=== PATIENT | female | born 1980 | race Caucasian/White ===

== ENCOUNTER 2016-12-16 10:58 | Emergency (ER) | payer MEDICAID ==
[2016-12-16] MEDS ORDERED: HYDROmorphone 1 MG/ML Syringe IM ONE (11:21)
--- NOTE | 2016-12-16 12:32 | EDM.PDOC ---
ED HPI GENERAL MEDICAL PROBLEM - General Chief Complaint: General Stated Complaint: ALL OVER BODY PAIN DUE TO FALL Time Seen by Provider: 12/16/16 11:13 Source of Information: Reports: Patient History Limitations: Reports: No limitations - History of Present Illness INITIAL COMMENTS - FREE TEXT/NARRATIVE: The patient presents with low back pain, coccyx, right shoulder and left sided chest pain. She fell down the steps 6 days ago. She was going into her basement and tripped and fell down 20 steps. She had no LOC. She has no numbness or weakness. She has a mild headache. 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: oxycodone Back Pain Score (Numeric/FACES): 9 - Related Data Allergies Allergy/AdvReac Type Severity Reaction Status Date / Time morphine AdvReac Mild Nausea and Verified 12/16/16 11:04 Vomiting latex Allergy Intermediate Blisters Uncoded 12/16/16 11:04 Home Meds: Home Meds Levothyroxine 50 mcg PO DAILY 12/24/13 [History] Verapamil HCl [Verapamil ER] 240 mg PO BEDTIME 12/24/13 [History] Pramipexole Di-HCl [Mirapex] 1 mg PO DAILY 06/25/14 [History] LORazepam 2 mg PO TID 12/02/14 [History] Insulin Detemir [Levemir] 12 unit SUBCUT 06/13/16 [History] Ziprasidone HCl [Geodon] 20 mg PO BID 06/13/16 [History] hydrOXYzine Pamoate [Vistaril] 25 mg PO BEDTIME PRN 06/13/16 [History] Cyclobenzaprine [Flexeril] 10 mg PO TID PRN #20 tablet 12/16/16 [Rx] oxyCODONE HCl/Acetaminophen [Percocet 5-325 mg Tablet] 1 - 2 each PO Q6HR PRN # 20 tablet 12/16/16 [Rx] Past Medical History HEENT History: Reports: Impaired vision Other HEENT History: wears eyeglasses Cardiovascular History: Reports: Hypertension Respiratory History: Reports: Bronchitis, recurrent, Pneumonia, recurrent Gastrointestinal History: Reports: Cirrhosis, Hepatitis 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 OB/BYN 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 Musculoskeletal History: Reports: Other (see below) Other Musculoskeletal History: Scoliosis Neurological History: Reports: Migraines Psychiatric History: Reports: Anxiety, Depression Endocrine/Metabolic History: Reports: Diabetes, type II, Hypothyroidism Hematologic History: Reports: Anemia Oncologic (Cancer) History: Reports: Cervix, Thyroid - Infectious Disease History Infectious Disease History: Reports: Chicken pox, Hepatitis C, Influenza, Shingles - Past Surgical History HEENT Surgical History: Reports: Adenoidectomy, Tonsillectomy Cardiovascular Surgical History: Reports: None Respiratory Surgical History: Reports: None GI Surgical History: Reports: Appendectomy Female Surgical History: Reports: Hysterectomy, Tubal ligation Endocrine Surgical History: Reports: Thyroidectomy Neurological Surgical History: Reports: None Social & Family History - Family History Family Medical History: Noncontributory - Tobacco Use Smoking Status *Q: Current Every Day Smoker Years of Tobacco use: 20 Packs/Tins Daily: 0.5 Used Tobacco, but Quit: No Second Hand Smoke Exposure: No - Caffeine Use Caffeine Use: Reports: Soda - Alcohol Use Days Per Week of Alcohol Use: 0 - Recreational Drug Use Recreational Drug Use: Yes Drug Use in Last 12 Months: Yes Recreational Drug Type: Reports: Marijuana/Hashish Other Recreational Drug Type: marijuana one week ago Recreational Drug Use Frequency: Socially Recreational Drug Last Use: 30 days - Living Situation & Occupation Living situation: Reports: , with family Occupation: disabled (Cirrhosis & depression) ED ROS GENERAL - Review of Systems Review Of Systems: See Below Constitutional: Reports: no symptoms HEENT: Reports: No symptoms Respiratory: Reports: No Symptoms Cardiovascular: Reports: Chest pain (Left side) Endocrine: Reports: no symptoms GI/Abdominal: Reports: No symptoms : Reports: no symptoms Musculoskeletal: Reports: back pain (Lower) ED EXAM, GENERAL - Physical Exam Exam: See Below Exam Limited By: No limitations General Appearance: alert, no apparent distress Ears: normal external exam Nose: normal inspection Head: atraumatic, normocephalic Neck: normal inspection Respiratory/Chest: no respiratory distress, lungs clear, normal breath sounds Cardiovascular: regular rate, rhythm, no edema, no murmur GI/Abdominal: soft, non tender, no organomegaly, no mass Back Exam: other (Pain upon palpation to the lower back) Extremities: normal inspection Neurological: alert, oriented, no motor/sensory deficits Course - Vital Signs Last Recorded V/S: Last Vital Signs Temp 97.4 F 12/16/16 11:05 Pulse 108 H 12/16/16 11:05 Resp 16 12/16/16 11:05 BP 143/101 H 12/16/16 11:05 Pulse Ox 98 12/16/16 11:05 - Orders/Labs/Meds Orders: Active Orders 24 hr Category Date Time Status CXR [Chest 2V] [CR] Stat Exams 12/16/16 11:22 Taken Lumbar Spine 2 or 3V [CR] Stat Exams 12/16/16 11:21 Taken Sacrum Coccyx Min 2V [CR] Stat Exams 12/16/16 11:21 Taken Shoulder Comp Rt [CR] Stat Exams 12/16/16 11:22 Taken Meds: Medications Discontinued Medications Generic Name Dose Route Start Last Admin Trade Name Freq PRN Reason Stop Dose Admin Hydromorphone HCl 1 mg 12/16/16 11:21 12/16/16 11:49 Dilaudid IM 12/16/16 11:22 1 mg ONETIME ONE Administration - Re-Assessments/Exams Free Text/Narrative Re-Assessment/Exam: 12/16/16 12:31 I ordered dilaudid 1mg IM. The x-ray of her lumbar spine, coccyx, shoulder and chest are all negative for fracture or acute injury. Departure - Departure Time of Disposition: 12:35 Disposition: Home, Self-Care 01 Condition: good Clinical Impression: Chest wall pain Fall Qualifiers: Encounter type: initial encounter Qualified Code(s): W19.XXXA - Unspecified fall, initial encounter Low back pain Qualifiers: Chronicity: acute Back pain laterality: bilateral Sciatica presence: without sciatica Qualified Code(s): M54.5 - Low back pain Right shoulder pain Qualifiers: Chronicity: acute Qualified Code(s): M25.511 - Pain in right shoulder Prescriptions: oxyCODONE HCl/Acetaminophen [Percocet 5-325 mg Tablet] 1 - 2 each PO Q6HR PRN # 20 tablet PRN Reason: Pain Cyclobenzaprine [Flexeril] 10 mg PO TID PRN #20 tablet PRN Reason: Pain Referrals: Jane Alex NP [Primary Care Provider] - 1 Week Forms: ED Department Discharge Additional Instructions: Take the flexeril and percocet as needed for pain. Use ice or heat, which ever one feels better. Please return if you are worse. - My Orders Last 24 Hours: My Active Orders 12/16/16 11:21 Lumbar Spine 2 or 3V [CR] Stat Sacrum Coccyx Min 2V [CR] Stat 12/16/16 11:22 CXR [Chest 2V] [CR] Stat Shoulder Comp Rt [CR] Stat - Assessment/Plan Last 24 Hours: My Active Orders 12/16/16 11:21 Lumbar Spine 2 or 3V [CR] Stat Sacrum Coccyx Min 2V [CR] Stat 12/16/16 11:22 CXR [Chest 2V] [CR] Stat Shoulder Comp Rt [CR] Stat
[2016-12-16 12:55] VITALS: BP 112/79
--- NOTE | 2016-12-16 15:08 | CR ---
Chest: Two views of the chest was obtained. Comparison: Previous chest x-ray of 01/24/15. Heart size and mediastinum are normal. Lungs are clear. Minimal scoliosis is noted. Bony structures are otherwise unremarkable for the patient's age. Impression: 1. Nothing acute is identified on two-view chest x-ray. Diagnostic code #2
--- NOTE | 2016-12-16 15:08 | CR ---
Right shoulder: Three views of the right shoulder were obtained. Comparison: No previous shoulder study. Glenohumeral joint and acromioclavicular joint are unremarkable. No fracture, dislocation or other bony abnormality is identified. Impression: 1. No abnormality is identified on three-view right shoulder study. Diagnostic code #1
--- NOTE | 2016-12-16 15:08 | CR ---
Sacrum and coccyx: Three views of the sacrum and coccyx were obtained. No discrete fracture or other bony abnormality is seen. Sacroiliac joints are within normal limits. Impression: 1. No discrete abnormality is appreciated on three-view sacrum and coccyx study. Diagnostic code #1
--- NOTE | 2016-12-16 15:08 | CR ---
Lumbar spine: AP, lateral and coned-down lateral views centered to the lumbosacral junction were obtained. Comparison: Previous lumbar spine study of 01/24/15. Mild scoliosis noted. Vertebral body heights and disc spaces are preserved. Minimal scattered endplate osteophytes are seen. Pedicles as well as transverse and spinous processes are intact. Mild increased stool noted within the colon. No subluxation or fracture is seen. Impression: 1. Mild scoliosis. Minimal scattered endplate osteophytes. 2. Mild increased stool within the colon. Diagnostic code #2
== END 2016-12-16 12:53 | disposition home or self-care (01) ==
LOC: JD.ED 10:58
DX: R07.89 Other chest pain (principal); M54.5 Low back pain; M25.511 Pain in right shoulder; I10 Essential (primary) hypertension; F41.8 Other specified anxiety disorders; E11.9 Type 2 diabetes mellitus without complications; D64.9 Anemia, unspecified; F17.210 Nicotine dependence, cigarettes, uncomplicated; Z98.890 Other specified postprocedural states; Z90.710 Acquired absence of both cervix and uterus; E89.0 Postprocedural hypothyroidism; E03.9 Hypothyroidism, unspecified; Z85.41 Personal history of malignant neoplasm of cervix uteri; Z85.850 Personal history of malignant neoplasm of thyroid; Z79.4 Long term (current) use of insulin; Z79.899 Other long term (current) drug therapy
CPT/HCPCS: 71020; 72100; 72220; 73030; 96372; 99285; J1170; 99284

== ENCOUNTER 2017-08-08 13:24 | Emergency (ER) | payer MEDICAID ==
[2017-08-08 13:37] VITALS: BP 151/104
[2017-08-08] MEDS ORDERED: Ondansetron 4 MG/2 ML SDV IVPUSH ONE (13:37)
[2017-08-08] MEDS ORDERED: Sodium Chloride 0.9% 10 ML Syringe FLUSH PRN (13:37)
[2017-08-08] MEDS ORDERED: Sodium Chloride 0.9% 1,000 ML IV SCH (13:45)
--- NOTE | 2017-08-08 14:17 | EDM.PDOC ---
ED HPI GENERAL MEDICAL PROBLEM - General Chief Complaint: Abdominal Pain Stated Complaint: ABNORMAL EKG-SENT FROM [place] Time Seen by Provider: 08/08/17 13:30 Source of Information: Reports: Patient, Provider History Limitations: Reports: No Limitations - History of Present Illness INITIAL COMMENTS - FREE TEXT/NARRATIVE: The patient presents with lower abdominal pain and chest pain. She has a history of low abdominal pain and it has gotten a little worse. She also has some nausea and vomiting. She also has some chest pain with some shortness of breath. She has no fever or chills. The pain is worse with movement. She has no cough, congestion or runny nose. She says the pain is pressure like. She has no history of heart problems. Her dad did have an OK. She does smoke. Onset: Gradual Duration: Day(s): Location: Reports: Chest, Abdomen Quality: Reports: Pressure Severity: Moderate Improves with: Reports: None Worsens with: Reports: Movement Associated Symptoms: Reports: Chest Pain, Nausea/Vomiting. Denies: Fever/Chills , Shortness of Breath lower abdomen Pain Score (Numeric/FACES): 6 - Related Data Allergies Allergy/AdvReac Type Severity Reaction Status Date / Time morphine AdvReac Mild Nausea and Verified 08/08/17 13:37 Vomiting latex Allergy Intermediate Blisters Uncoded 08/08/17 13:37 Home Meds: Home Meds Levothyroxine 50 mcg PO DAILY 12/24/13 [History] Pramipexole Di-HCl [Mirapex] 1 mg PO DAILY 06/25/14 [History] Insulin Detemir [Levemir] 50 unit SUBCUT DAILY 06/13/16 [History] Cyclobenzaprine [Flexeril] 10 mg PO TID PRN #20 tablet 12/16/16 [Rx] Buprenorphine HCl/Naloxone HCl [Buprenorphin-Naloxon 8-2 mg Sl] 1 each SL TID [History] Past Medical History HEENT History: Reports: Impaired Vision Other HEENT History: wears eyeglasses Cardiovascular History: Reports: Hypertension Respiratory History: Reports: Bronchitis, Recurrent, Pneumonia, Recurrent Gastrointestinal History: Reports: Cirrhosis, 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 Musculoskeletal History: Reports: Other (See Below) Other Musculoskeletal History: Scoliosis Neurological History: Reports: Migraines Psychiatric History: Reports: Addiction, Anxiety, Depression Endocrine/Metabolic History: Reports: Diabetes, Type I, Hypothyroidism Hematologic History: Reports: Anemia Oncologic (Cancer) History: Reports: Cervix, Thyroid - Infectious Disease History Infectious Disease History: Reports: Chicken Pox, Hepatitis C, Influenza, Shingles - Past Surgical History Cardiovascular Surgical History: Reports: None GI Surgical History: Reports: Appendectomy Female Surgical History: Reports: Hysterectomy, Tubal Ligation Neurological Surgical History: Reports: None Social & Family History - Family History Family Medical History: Noncontributory - Tobacco Use Smoking Status *Q: Current Every Day Smoker Years of Tobacco use: 20 Packs/Tins Daily: 0.5 Used Tobacco, but Quit: No Second Hand Smoke Exposure: No - Caffeine Use Caffeine Use: Reports: Soda - Alcohol Use Days Per Week of Alcohol Use: 0 - Recreational Drug Use Recreational Drug Use: No Drug Use in Last 12 Months: Yes Recreational Drug Type: Reports: Marijuana/Hashish Other Recreational Drug Type: marijuana one week ago Recreational Drug Use Frequency: Socially Recreational Drug Last Use: 30 days - Living Situation & Occupation Living situation: Reports: , with Family Occupation: Disabled ED ROS GENERAL - Review of Systems Review Of Systems: See Below Constitutional: Reports: No Symptoms HEENT: Reports: No Symptoms Respiratory: Reports: Shortness of Breath Cardiovascular: Reports: Chest Pain Endocrine: Reports: No Symptoms GI/Abdominal: Reports: Abdominal Pain, Nausea, Vomiting. Denies: Diarrhea : Reports: No Symptoms Musculoskeletal: Reports: No Symptoms ED EXAM, GI/ABD - Physical Exam Exam: See Below Exam Limited By: No Limitations General Appearance: Alert, No Apparent Distress Ears: Normal External Exam Nose: Normal Inspection Head: Atraumatic, Normocephalic Neck: Normal Inspection Respiratory/Chest: No Respiratory Distress, Lungs Clear, Normal Breath Sounds Cardiovascular: Regular Rate, Rhythm, No Edema, No Murmur GI/Abdominal Exam: Soft, No Organomegaly, No Mass, Tender (Moderate to the lower abdomen) Back Exam: Normal Inspection Extremities: Normal Inspection EKG INTERPRETATION EKG Date: 08/08/17 Time: 14:33 Rhythm: NSR Rate (Beats/Min): 87 [place]: LAD-Left [place] Deviation P-Wave: Present QRS: Normal ST-T: Normal QT: Normal Course - Vital Signs Last Recorded V/S: Last Vital Signs Temp 96.5 F 08/08/17 13:30 Pulse 91 08/08/17 13:30 Resp 18 08/08/17 13:30 BP 151/104 H 08/08/17 13:30 Pulse Ox 98 08/08/17 13:30 - Orders/Labs/Meds Orders: Active Orders 24 hr Category Date Time Status Cardiac Monitoring [RC] . DIRECTED Care 08/08/17 13:37 Active EKG Documentation Completion [RC] ASDIRECTED Care 08/08/17 13:39 Active Oxygen Therapy [RC] PRN Care 08/08/17 13:37 Active Peripheral IV Care [RC] . DIRECTED Care 08/08/17 13:38 Active Chest 1V Frontal [CR] Stat Exams 08/08/17 13:38 Taken Sodium Chloride 0.9% [Normal Saline] 1,000 ml Med 08/08/17 13:45 Active IV .BOLUS Sodium Chloride 0.9% [Saline Flush] Med 08/08/17 13:37 Active 10 ml FLUSH ASDIRECTED PRN ED Antiemetic Medication Reflex [OM.PC] Stat Oth 08/08/17 13:38 Ordered Peripheral IV Insertion Adult [OM.PC] Stat Oth 08/08/17 13:37 Ordered EKG 12 Lead [EK] Stat Ther 08/08/17 13:39 Ordered Medication Orders Sodium Chloride (Normal Saline) 1,000 mls @ 1,000 mls/hr IV .BOLUS OSCAR Last Admin: 08/08/17 13:50 Dose: 1,000 mls/hr Sodium Chloride (Saline Flush) 10 ml FLUSH ASDIRECTED PRN PRN Reason: Keep Vein Open Last Admin: 08/08/17 13:52 Dose: 10 ml Labs: Laboratory Tests 08/08/17 08/08/17 08/08/17 Range/Units 13:40 13:40 13:40 WBC 6.18 (3.98-10.04) K/mm3 RBC 4.82 (3.98-5.22) M/mm3 Hgb 15.1 (11.2-15.7) gm/L Hct 44.1 (34.1-44.9) % MCV 91.5 (79.4-94.8) fl MCH 31.3 (25.6-32.2) pg MCHC 34.2 (32.2-35.5) g/dl RDW Std Deviation 44.0 (36.4-46.3) fL Plt Count 71 L (182-369) K/mm3 MPV 10.0 (9.4-12.3) fl Neut % (Auto) 59.2 (34.0-71.1) % Lymph % (Auto) 29.0 (19.3-51.7) % [place] % (Auto) 9.2 (4.7-12.5) % Eos % (Auto) 2.1 (0.7-5.8) Baso % (Auto) 0.3 (0.1-1.2) % Neut # (Auto) 3.66 (1.56-6.13) K/mm3 Lymph # (Auto) 1.79 (1.18-3.74) K/mm3 [place] # (Auto) 0.57 H (0.24-0.36) K/mm3 Eos # (Auto) 0.13 (0.04-0.36) K/mm3 Baso # (Auto) 0.02 (0.01-0.08) K/mm3 Manual Slide Review Normal smear Sodium 140 (136-145) mEq/L Potassium 4.1 (3.5-5.1) mEq/L Chloride 103 (98-107) mEq/L Carbon Dioxide 30 (21-32) mEq/L Anion Gap 11.1 (5-15) BUN 11 (7-18) mg/dL Creatinine 0.8 (0.55-1.02) mg/dL Est Cr Clr Drug Dosing 96.36 mL/min Estimated GFR (MDRD) > 60 (>60) mL/min BUN/Creatinine Ratio 13.8 L (14-18) Glucose 160 H (74-106) mg/dL Calcium 9.0 (8.5-10.1) mg/dL Total Bilirubin 0.5 (0.2-1.0) mg/dL AST 109 H (15-37) U/L ALT 182 H (14-59) U/L Alkaline Phosphatase 94 (46-116) U/L Troponin I < 0.017 (0.00-0.056) ng/mL Total Protein 8.5 H (6.4-8.2) g/dl Albumin 3.6 (3.4-5.0) g/dl Globulin 4.9 gm/dL Albumin/Globulin Ratio 0.7 L (1-2) Lipase 137 (73-393) U/L Urine Color (Yellow) Urine Appearance (Clear) Urine pH (5.0-8.0) Ur Specific [place] (1.005-1.030) Urine Protein (Negative) Urine Glucose (UA) (Negative) Urine Ketones (Negative) Urine Occult Blood (Negative) Urine Nitrite (Negative) Urine Bilirubin (Negative) Urine Urobilinogen (0.2-1.0) Ur Leukocyte Esterase (Negative) Urine RBC (0-5) /hpf Urine WBC (0-5) /hpf Ur Epithelial Cells (0-5) /hpf Urine Bacteria (FEW) /hpf Urine Mucus (FEW) /hpf H. pylori IgG Antibody Negative (NEGATIVE) 08/08/17 Range/Units 13:50 WBC (3.98-10.04) K/mm3 RBC (3.98-5.22) M/mm3 Hgb (11.2-15.7) gm/L Hct (34.1-44.9) % MCV (79.4-94.8) fl MCH (25.6-32.2) pg MCHC (32.2-35.5) g/dl RDW Std Deviation (36.4-46.3) fL Plt Count (182-369) K/mm3 MPV (9.4-12.3) fl Neut % (Auto) (34.0-71.1) % Lymph % (Auto) (19.3-51.7) % [place] % (Auto) (4.7-12.5) % Eos % (Auto) (0.7-5.8) Baso % (Auto) (0.1-1.2) % Neut # (Auto) (1.56-6.13) K/mm3 Lymph # (Auto) (1.18-3.74) K/mm3 [place] # (Auto) (0.24-0.36) K/mm3 Eos # (Auto) (0.04-0.36) K/mm3 Baso # (Auto) (0.01-0.08) K/mm3 Manual Slide Review Sodium (136-145) mEq/L Potassium (3.5-5.1) mEq/L Chloride (98-107) mEq/L Carbon Dioxide (21-32) mEq/L Anion Gap (5-15) BUN (7-18) mg/dL Creatinine (0.55-1.02) mg/dL Est Cr Clr Drug Dosing mL/min Estimated GFR (MDRD) (>60) mL/min BUN/Creatinine Ratio (14-18) Glucose (74-106) mg/dL Calcium (8.5-10.1) mg/dL Total Bilirubin (0.2-1.0) mg/dL AST (15-37) U/L ALT (14-59) U/L Alkaline Phosphatase (46-116) U/L Troponin I (0.00-0.056) ng/mL Total Protein (6.4-8.2) g/dl Albumin (3.4-5.0) g/dl Globulin gm/dL Albumin/Globulin Ratio (1-2) Lipase (73-393) U/L Urine Color Yellow (Yellow) Urine Appearance Clear (Clear) Urine pH 6.0 (5.0-8.0) Ur Specific [place] 1.015 (1.005-1.030) Urine Protein Negative (Negative) Urine Glucose (UA) Negative (Negative) Urine Ketones Negative (Negative) Urine Occult Blood Negative (Negative) Urine Nitrite Negative (Negative) Urine Bilirubin Negative (Negative) Urine Urobilinogen 0.2 (0.2-1.0) Ur Leukocyte Esterase Negative (Negative) Urine RBC 0-5 (0-5) /hpf Urine WBC 0-5 (0-5) /hpf Ur Epithelial Cells 0-5 (0-5) /hpf Urine Bacteria Occasional (FEW) /hpf Urine Mucus Not seen (FEW) /hpf H. pylori IgG Antibody (NEGATIVE) Meds: Medications Generic Name Dose Route Start Last Admin Trade Name Freq PRN Reason Stop Dose Admin Sodium Chloride 1,000 mls @ 1,000 mls/hr 08/08/17 13:45 08/08/17 13:50 Normal Saline IV 1,000 mls/hr .BOLUS OSCAR Administration Sodium Chloride 10 ml 08/08/17 13:37 08/08/17 13:52 Saline Flush FLUSH 10 ml ASDIRECTED PRN Administration Keep Vein Open Discontinued Medications Generic Name Dose Route Start Last Admin Trade Name Freq PRN Reason Stop Dose Admin Ondansetron HCl 4 mg 08/08/17 13:37 08/08/17 13:52 Zofran IVPUSH 08/08/17 13:38 4 mg ONETIME ONE Administration - Re-Assessments/Exams Free Text/Narrative Re-Assessment/Exam: 08/08/17 14:17 I ordered an IV NS 1L bolus, zofran, labs, EKG and CXR. 08/08/17 15:02 Her EKG shows a NSR with no acute changes. Her CXR looks good. Her CBC looks good. Her glucose was 160. Her AST was elevated at 109. Her ALT was elevated at 182. Her troponin was negative. Her lipase was negative. Her UA shows no UTI. Her H-pylori was negative. She feels better and she would like to go. Departure - Departure Time of Disposition: 15:05 Disposition: Home, Self-Care 01 Condition: Good Clinical Impression: Abdominal pain, Atypical chest pain - Discharge Information Referrals: PCP,Not In Area [Primary Care Provider] - Forms: ED Department Discharge Additional Instructions: Take your medication as prescribed. Follow up with your doctor next week. Please return if you are worse. - My Orders Last 24 Hours: My Active Orders 08/08/17 13:37 Cardiac Monitoring [RC] . DIRECTED Oxygen Therapy [RC] PRN Sodium Chloride 0.9% [Saline Flush] 10 ml FLUSH ASDIRECTED PRN Peripheral IV Insertion Adult [OM.PC] Stat 08/08/17 13:38 Peripheral IV Care [RC] . DIRECTED Chest 1V Frontal [CR] Stat ED Antiemetic Medication Reflex [OM.PC] Stat 08/08/17 13:39 EKG Documentation Completion [RC] ASDIRECTED EKG 12 Lead [EK] Stat 08/08/17 13:45 Sodium Chloride 0.9% [Normal Saline] 1,000 ml IV .BOLUS - Assessment/Plan Last 24 Hours: My Active Orders 08/08/17 13:37 Cardiac Monitoring [RC] . DIRECTED Oxygen Therapy [RC] PRN Sodium Chloride 0.9% [Saline Flush] 10 ml FLUSH ASDIRECTED PRN Peripheral IV Insertion Adult [OM.PC] Stat 08/08/17 13:38 Peripheral IV Care [RC] . DIRECTED Chest 1V Frontal [CR] Stat ED Antiemetic Medication Reflex [OM.PC] Stat 08/08/17 13:39 EKG Documentation Completion [RC] ASDIRECTED EKG 12 Lead [EK] Stat 08/08/17 13:45 Sodium Chloride 0.9% [Normal Saline] 1,000 ml IV .BOLUS
--- NOTE | 2017-08-11 07:59 | CR ---
Chest: Portable view of the chest was obtained. Comparison: Prior chest x-ray of 12/16/16. Heart size and mediastinum are normal. Lungs are clear. Density is identified within the right lower chest most likely artifact. Bony structures are otherwise unremarkable. Impression: 1. Linear density within the right lung base most likely artifact. 2. Nothing acute is identified on portable chest x-ray. Diagnostic code #2
== END 2017-08-08 15:21 | disposition home or self-care (01) ==
LOC: JD.ED 13:24
DX: R07.89 Other chest pain (principal); R10.30 Lower abdominal pain, unspecified; I10 Essential (primary) hypertension; E03.9 Hypothyroidism, unspecified; E10.9 Type 1 diabetes mellitus without complications; Z79.4 Long term (current) use of insulin; F17.210 Nicotine dependence, cigarettes, uncomplicated; Z88.5 Allergy status to narcotic agent; Z91.040 Latex allergy status
CPT/HCPCS: 36415; 71010; 80053; 81001; 83690; 84484; 85025; 86677; 93005; 96361; 96374; 99285; J2405; J7040; J7050; 93010; 99284

== ENCOUNTER 2017-09-15 18:22 | Emergency (ER) | payer MEDICAID ==
[2017-09-15 18:38] VITALS: BP 165/114
[2017-09-15] MEDS ORDERED: Cephalexin 500 MG Cap PO ONE (20:08)
--- NOTE | 2017-09-15 20:14 | EDM.PDOC ---
ED HPI GENERAL MEDICAL PROBLEM - General Chief Complaint: Skin Complaint Stated Complaint: INFECTION ON ARM Time Seen by Provider: 09/15/17 19:54 Source of Information: Reports: Patient History Limitations: Reports: No Limitations - History of Present Illness INITIAL COMMENTS - FREE TEXT/NARRATIVE: The patient states that she received a tattoo to the volar aspect of her right forearm on 08/30 or 08/31/2017. This was done by a non-professional who owned a tattoo gun. She states that she has been washing the tattoo with Dial antibacterial soap, and applying Neosporin. She states that about 1-2 days later , she developed redness, itchiness, and burning around the tattoo. She has not had a fever or chills. No nausea or vomiting. The patient states that she has 38 other tattoos, and has never had an adverse reaction previously. No medical evaluation for this complaint, prior to tonight. The patient's PCP is Dr. Ninfa Avelar, at [facility] in [place]. Right Lower Arm Pain Score (Numeric/FACES): 3 - Related Data Allergies Allergy/AdvReac Type Severity Reaction Status Date / Time morphine AdvReac Mild Nausea and Verified 09/15/17 18:38 Vomiting latex Allergy Intermediate Blisters Uncoded 09/15/17 18:38 Home Meds: Home Meds Levothyroxine 50 mcg PO DAILY 12/24/13 [History] Pramipexole Di-HCl [Mirapex] 1 mg PO DAILY 06/25/14 [History] Insulin Detemir [Levemir] 20 unit SUBCUT QAM 06/13/16 [History] Buprenorphine HCl/Naloxone HCl [Buprenorphin-Naloxon 8-2 mg Sl] 1 each SL BID [History] Cephalexin [Keflex] 1 tab PO Q6HR #20 cap 09/15/17 [Rx] Cyclobenzaprine [Flexeril] 10 mg PO BID PRN 09/15/17 [History] Insulin Aspart [Novolog Flexpen] 1 dose SQ ASDIRECTED 09/15/17 [History] Insulin Detemir [Levemir] 18 units SQ QPM 09/15/17 [History] Past Medical History HEENT History: Reports: Impaired Vision Other HEENT History: wears eyeglasses Cardiovascular History: Reports: Hypertension Respiratory History: Reports: Bronchitis, Recurrent, Pneumonia, Recurrent Gastrointestinal History: Reports: Cirrhosis, Hepatitis 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 OB/BYN 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 Musculoskeletal History: Reports: Other (See Below) Other Musculoskeletal History: Scoliosis Neurological History: Reports: Migraines Psychiatric History: Reports: Addiction, Anxiety, Depression Endocrine/Metabolic History: Reports: Diabetes, Type I, Hypothyroidism Hematologic History: Reports: Anemia Oncologic (Cancer) History: Reports: Cervix, Thyroid - Infectious Disease History Infectious Disease History: Reports: Chicken Pox, Hepatitis C, Influenza, Shingles - Past Surgical History Cardiovascular Surgical History: Reports: None GI Surgical History: Reports: Appendectomy Female Surgical History: Reports: Hysterectomy, Tubal Ligation Neurological Surgical History: Reports: None Social & Family History - Family History Family Medical History: Noncontributory - Tobacco Use Smoking Status *Q: Current Every Day Smoker Years of Tobacco use: 20 Packs/Tins Daily: 0.5 Used Tobacco, but Quit: No Second Hand Smoke Exposure: No - Caffeine Use Caffeine Use: Reports: Soda - Alcohol Use Days Per Week of Alcohol Use: 0 - Recreational Drug Use Recreational Drug Use: No Drug Use in Last 12 Months: Yes Recreational Drug Type: Reports: Marijuana/Hashish Other Recreational Drug Type: marijuana one week ago Recreational Drug Use Frequency: Socially Recreational Drug Last Use: 30 days - Living Situation & Occupation Living situation: Reports: , with Family Occupation: Disabled ED ROS GENERAL - Review of Systems Review Of Systems: ROS reveals no pertinent complaints other than HPI. ED EXAM, SKIN/RASH Exam: See Below Exam Limited By: No Limitations General Appearance: Alert, WD/WN, No Apparent Distress Extremities: Normal Range of Motion, Normal Capillary Refill Skin: Warm, Dry, Intact, Normal Color, Rash (There is a large tattoo to the volar aspect of the patient's right forearm. A scab covers the entire tattoo. Surrounding the entire tattoo is a red petechial rash, with minimal associated erythema or swelling. No weeping.), Tattoo(s) (Numerous) Course - Vital Signs Last Recorded V/S: Last Vital Signs Temp 36.7 C 09/15/17 18:32 Pulse 110 H 09/15/17 18:32 Resp 16 09/15/17 18:32 BP 165/114 H 09/15/17 18:32 Pulse Ox 96 09/15/17 18:32 - Orders/Labs/Meds Meds: Medications Discontinued Medications Generic Name Dose Route Start Last Admin Trade Name Quinn PRN Reason Stop Dose Admin Cephalexin 500 mg 09/15/17 20:08 09/15/17 20:15 Keflex PO 09/15/17 20:09 500 mg ONETIME ONE Administration - Re-Assessments/Exams Free Text/Narrative Re-Assessment/Exam: 09/15/17 20:09 The patient has a large tattoo on the ventral aspect of her right forearm, that is scabbed over, and surrounded by mild erythema and numerous punctate erythematous lesions. I do not strongly suspect that the patient has cellulitis , rather, I believe the punctate lesions are a reaction to the Neosporin that she has been applying to the wound. Nevertheless, I believe it would be prudent to prescribe the patient a five-day course of Keflex and then have her follow- up with her PCP in [place]. We will give the patient her first dose of Keflex here. Unfortunately, the patient states that she does not have a credit card or debit card, therefore she cannot fill a prescription for Keflex from the [facility] machine - I will e -prescribe for Keflex to [facility] in [place] that the patient can pickle maker in the morning. Departure - Departure Time of Disposition: 20:12 Disposition: Home, Self-Care 01 Condition: Good Clinical Impression: Adverse reaction to drug that acts primarily on skin - Discharge Information Prescriptions: Cephalexin [Keflex] 1 tab PO Q6HR #20 cap Instructions: Contact Dermatitis, [id number] Referrals: Ninfa Avelar MD [Consulting Physician] - Forms: ED Department Discharge Additional Instructions: You were seen in the emergency room for a skin reaction on your right forearm, following a tattoo being placed. The reaction you are having is MOST LIKELY an adverse reaction to Neosporin. We recommend that you discard all antibacterial soaps and the Neosporin. Keep the wound clean by washing it with ordinary soap and water. Do not apply any topical antibiotic ointments. You probably do not have cellulitis (infection of the skin), however, to be safe , you have been started on the antibiotic Keflex. Take one tablet every 6 hours , as prescribed. Finish the entire prescription unless told otherwise by your doctor. We recommend that you follow-up with your PCP, Dr. Ninfa Avelar, this week. If any other problems, please do not hesitate to return to the ER.
== END 2017-09-15 20:26 | disposition home or self-care (01) ==
LOC: JD.ED 18:22
DX: L53.9 Erythematous condition, unspecified (principal); L29.9 Pruritus, unspecified; T49.0X5A Adverse effect of local antifungal, anti-infective and anti-inflammatory drugs, initial encounter; E10.9 Type 1 diabetes mellitus without complications; E03.9 Hypothyroidism, unspecified; I10 Essential (primary) hypertension; F17.210 Nicotine dependence, cigarettes, uncomplicated; Z79.4 Long term (current) use of insulin; Z79.899 Other long term (current) drug therapy; Z88.5 Allergy status to narcotic agent; Z91.040 Latex allergy status
CPT/HCPCS: 99283; A9270

== ENCOUNTER 2017-12-21 13:21 | Emergency (ER) | payer MEDICAID ==
[2017-12-21 13:32] VITALS: BP 157/103
--- NOTE | 2017-12-21 15:24 | EDM.PDOC ---
ED HPI GENERAL MEDICAL PROBLEM - General Chief Complaint: Respiratory Problem Stated Complaint: COUGHING UP BLOOD Time Seen by Provider: 12/21/17 13:54 Source of Information: Reports: Patient History Limitations: Reports: No Limitations - History of Present Illness INITIAL COMMENTS - FREE TEXT/NARRATIVE: 37-year-old female presents for evaluation and treatment of hemoptysis. Patient reports that she coughed up blood 3 separate times today. Most recently was prior to arrival in the ER. She has a picture of it on the phone and coughed up approximately pea-sized amount of blood. She reports associated symptoms of fatigue, chills, lightheadedness and abdominal pain. Reports she's been having trouble with constipation states she's not had a bowel movement in the last 2 and half weeks. Denies any fevers, nausea, vomiting, syncope, chest pain or any shortness of breath. Patient is a type I diabetic. She reports her sugars have been higher than normal in the 600s. Sugars are normally in the 300s. Last checked around 10 AM sugar was 300s. Patient has a history of hepatitis C and cirrhosis. Primary care provide in Dr. Jung Rasmussen. Abdomen Pain Score (Numeric/FACES): 6 - Related Data Allergies Allergy/AdvReac Type Severity Reaction Status Date / Time morphine AdvReac Mild Nausea and Verified 09/15/17 18:38 Vomiting latex Allergy Intermediate Blisters Uncoded 09/15/17 18:38 Home Meds: Home Meds Levothyroxine 50 mcg PO DAILY 12/24/13 [History] Pramipexole Di-HCl [Mirapex] 1 mg PO DAILY 06/25/14 [History] Insulin Detemir [Levemir] 20 unit SUBCUT QAM 06/13/16 [History] Buprenorphine HCl/Naloxone HCl [Buprenorphin-Naloxon 8-2 mg Sl] 1 each SL BID [History] Cyclobenzaprine [Flexeril] 10 mg PO BID PRN 09/15/17 [History] Insulin Aspart [Novolog Flexpen] 1 dose SQ ASDIRECTED 09/15/17 [History] Insulin Detemir [Levemir] 18 units SQ QPM 09/15/17 [History] Azithromycin [IJP: Azithromycin] 250 mg PO DAILY #6 tab 12/21/17 [Rx] Past Medical History HEENT History: Reports: Impaired Vision Other HEENT History: wears eyeglasses Cardiovascular History: Reports: Hypertension Respiratory History: Reports: Bronchitis, Recurrent, Pneumonia, Recurrent Gastrointestinal History: Reports: Cirrhosis, 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 OB/BYN 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 Musculoskeletal History: Reports: Other (See Below) Other Musculoskeletal History: Scoliosis Neurological History: Reports: Migraines Psychiatric History: Reports: Addiction, Anxiety, Depression Endocrine/Metabolic History: Reports: Diabetes, Type I, Hypothyroidism Hematologic History: Reports: Anemia Oncologic (Cancer) History: Reports: Cervix, Thyroid - Infectious Disease History Infectious Disease History: Reports: Chicken Pox, Hepatitis C, Influenza, Shingles - Past Surgical History Cardiovascular Surgical History: Reports: None GI Surgical History: Reports: Appendectomy Female Surgical History: Reports: Hysterectomy, Tubal Ligation Neurological Surgical History: Reports: None Social & Family History - Family History Family Medical History: Noncontributory - Tobacco Use Smoking Status *Q: Current Every Day Smoker Years of Tobacco use: 20 Packs/Tins Daily: 0.5 Used Tobacco, but Quit: No Second Hand Smoke Exposure: No - Caffeine Use Caffeine Use: Reports: Soda, Tea - Alcohol Use Days Per Week of Alcohol Use: 0 - Recreational Drug Use Recreational Drug Use: No Drug Use in Last 12 Months: Yes Recreational Drug Type: Reports: Marijuana/Hashish Other Recreational Drug Type: marijuana one week ago Recreational Drug Use Frequency: Socially Recreational Drug Last Use: 30 days - Living Situation & Occupation Living situation: Reports: , with Family Occupation: Disabled ED ROS GENERAL - Review of Systems Review Of Systems: See Below Constitutional: Reports: Chills. Denies: Fever, Malaise Respiratory: Reports: Cough, Hemoptysis. Denies: Shortness of Breath Cardiovascular: Denies: Chest Pain GI/Abdominal: Reports: Abdominal Pain. Denies: Hematemesis, Nausea, Vomiting ED EXAM, GENERAL - Physical Exam Exam: See Below Exam Limited By: No Limitations General Appearance: Alert, WD/WN, No Apparent Distress Ears: Normal External Exam Nose: Normal Inspection Throat/Mouth: Normal Inspection, Normal Lips, Normal Voice, No Airway Compromise Respiratory/Chest: No Respiratory Distress, Lungs Clear, Normal Breath Sounds Cardiovascular: Normal Peripheral Pulses, Regular Rate, Rhythm, No Murmur GI/Abdominal: Normal Bowel Sounds, Soft, Tender (mild generalized) Neurological: Alert, Oriented, Normal Cognition Psychiatric: Normal Affect, Normal Mood Skin Exam: Warm, Dry, Normal Color Course - Vital Signs Last Recorded V/S: Last Vital Signs Temp 37.2 C 12/21/17 13:31 Pulse 122 H 12/21/17 13:31 Resp 20 12/21/17 13:31 BP 157/103 H 12/21/17 13:31 Pulse Ox 96 12/21/17 13:31 - Orders/Labs/Meds Orders: Active Orders 24 hr Category Date Time Status Abdomen 1V Flat [CR] Stat Exams 12/21/17 14:02 Taken Chest 2V [CR] Stat Exams 12/21/17 14:02 Taken Labs: Laboratory Tests 12/21/17 12/21/17 12/21/17 Range/Units 14:17 14:17 14:17 WBC 6.53 (3.98-10.04) K/mm3 RBC 4.60 (3.98-5.22) M/mm3 Hgb 14.2 (11.2-15.7) gm/L Hct 41.5 (34.1-44.9) % MCV 90.2 (79.4-94.8) fl MCH 30.9 (25.6-32.2) pg MCHC 34.2 (32.2-35.5) g/dl RDW Std Deviation 42.1 (36.4-46.3) fL Plt Count 73 L (182-369) K/mm3 MPV 10.4 (9.4-12.3) fl Neutrophils % (Manual) 82 H (40-60) % Band Neutrophils % 0 (0-10) % Lymphocytes % (Manual) 13 L (20-40) % Atypical Lymphs % 0 % Monocytes % (Manual) 5 (2-10) % Eosinophils % (Manual) 0 L (0.7-5.8) % Basophils % (Manual) 0 L (0.1-1.2) Platelet Estimate Decreased Plt Morphology Comment See note RBC Morph Comment Normal PT 13.8 H (8.0-13.0) SECONDS INR 1.29 APTT 29 (22-36) SECONDS D-Dimer, Quantitative (0.19-0.59) mg/L Sodium 137 (136-145) mEq/L Potassium 4.2 (3.5-5.1) mEq/L Chloride 101 (98-107) mEq/L Carbon Dioxide 28 (21-32) mEq/L Anion Gap 12.2 (5-15) BUN 13 (7-18) mg/dL Creatinine 0.9 (0.55-1.02) mg/dL Est Cr Clr Drug Dosing 84.84 mL/min Estimated GFR (MDRD) > 60 (>60) mL/min BUN/Creatinine Ratio 14.4 (14-18) Glucose 335 H (74-106) mg/dL Calcium 8.7 (8.5-10.1) mg/dL Total Bilirubin 0.7 (0.2-1.0) mg/dL AST 88 H (15-37) U/L ALT 161 H (14-59) U/L Alkaline Phosphatase 101 (46-116) U/L Total Protein 8.1 (6.4-8.2) g/dl Albumin 3.6 (3.4-5.0) g/dl Globulin 4.5 gm/dL Albumin/Globulin Ratio 0.8 L (1-2) 12/21/17 Range/Units 14:17 WBC (3.98-10.04) K/mm3 RBC (3.98-5.22) M/mm3 Hgb (11.2-15.7) gm/L Hct (34.1-44.9) % MCV (79.4-94.8) fl MCH (25.6-32.2) pg MCHC (32.2-35.5) g/dl RDW Std Deviation (36.4-46.3) fL Plt Count (182-369) K/mm3 MPV (9.4-12.3) fl Neutrophils % (Manual) (40-60) % Band Neutrophils % (0-10) % Lymphocytes % (Manual) (20-40) % Atypical Lymphs % % Monocytes % (Manual) (2-10) % Eosinophils % (Manual) (0.7-5.8) % Basophils % (Manual) (0.1-1.2) Platelet Estimate Plt Morphology Comment RBC Morph Comment PT (8.0-13.0) SECONDS INR APTT (22-36) SECONDS D-Dimer, Quantitative 0.31 (0.19-0.59) mg/L Sodium (136-145) mEq/L Potassium (3.5-5.1) mEq/L Chloride (98-107) mEq/L Carbon Dioxide (21-32) mEq/L Anion Gap (5-15) BUN (7-18) mg/dL Creatinine (0.55-1.02) mg/dL Est Cr Clr Drug Dosing mL/min Estimated GFR (MDRD) (>60) mL/min BUN/Creatinine Ratio (14-18) Glucose (74-106) mg/dL Calcium (8.5-10.1) mg/dL Total Bilirubin (0.2-1.0) mg/dL AST (15-37) U/L ALT (14-59) U/L Alkaline Phosphatase (46-116) U/L Total Protein (6.4-8.2) g/dl Albumin (3.4-5.0) g/dl Globulin gm/dL Albumin/Globulin Ratio (1-2) - Radiology Interpretation Free Text/Narrative:: chest x shows no acute intrathoracic process. KUB shows increased stool in the colon - Re-Assessments/Exams Free Text/Narrative Re-Assessment/Exam: 12/21/17 15:47 I reviewed the chest x-ray and labs with the patient. Will treat for bronchitis. Follow-up with family medicine. Discharge instructions as documented. Departure - Departure Time of Disposition: 15:56 Disposition: Home, Self-Care 01 Condition: Fair Clinical Impression: Bronchitis - Discharge Information Prescriptions: Azithromycin [IJP: Azithromycin] 250 mg PO DAILY #6 tab Instructions: Acute Bronchitis, Adult, [id number] Referrals: Ninfa Avelar MD [Primary Care Provider] - Forms: ED Department Discharge Additional Instructions: Azithromycin as prescribed. 2 tabs on day 1 followed by 1 tablet on day 2 through 5 for 5 days of antibiotic total. Follow-up with your primary care provider in 1-2 weeks for recheck of your symptoms. Rest. Make sure you are drinking plenty of fluids. Please return to the ER if your symptoms change or worsen. - My Orders Last 24 Hours: My Active Orders 12/21/17 14:02 Abdomen 1V Flat [CR] Stat Chest 2V [CR] Stat - Assessment/Plan Last 24 Hours: My Active Orders 12/21/17 14:02 Abdomen 1V Flat [CR] Stat Chest 2V [CR] Stat
--- NOTE | 2017-12-22 07:23 | CR ---
Chest: Two views of the chest were obtained. Comparison: Prior chest x-ray of 08/08/17. Heart size and mediastinum are normal. Lungs are clear. Bony structures are unremarkable. Impression: 1. Nothing acute is appreciated on two-view chest x-ray. Diagnostic code #1
--- NOTE | 2017-12-22 07:23 | CR ---
Abdomen: Supine view of the abdomen was obtained. Comparison: Prior abdominal x-ray of 11/09/15. Slight increased stool throughout the colon is seen. Bowel gas pattern is otherwise unremarkable. Calcification is seen within the right side of the pelvis most likely representing phlebolith. No soft tissue abnormality is seen. Bony structures are unremarkable for the patient's age. Impression: 1. Slight increased stool within the colon. Nothing acute is appreciated. Diagnostic code #2
== END 2017-12-21 16:05 | disposition home or self-care (01) ==
LOC: JD.ED 13:21
DX: J40 Bronchitis, not specified as acute or chronic (principal); I10 Essential (primary) hypertension; E10.9 Type 1 diabetes mellitus without complications; E03.9 Hypothyroidism, unspecified; Z88.5 Allergy status to narcotic agent; Z91.040 Latex allergy status; Z79.899 Other long term (current) drug therapy
CPT/HCPCS: 36415; 71046; 71046-26; 74018; 74018-26; 80053; 85025; 85379; 85610; 85730; 99283; 99284

== ENCOUNTER 2018-03-21 12:25 | Emergency (ER) | payer MEDICAID ==
[2018-03-21 12:39] VITALS: BP 159/115
--- NOTE | 2018-03-21 13:33 | EDM.PDOC ---
ED HPI GENERAL MEDICAL PROBLEM - General Chief Complaint: Genitourinary Problem Stated Complaint: POSS. UTI Time Seen by Provider: 03/21/18 13:02 Source of Information: Reports: Patient History Limitations: Reports: No Limitations - History of Present Illness INITIAL COMMENTS - FREE TEXT/NARRATIVE: 37-year-old female presents for evaluation and treatment of vaginal pain, swelling, erythema and itchiness. She reports the symptoms have been going on for about 2 months. She reports dysuria, occasional hematuria and pain in her lower back. She denies any fevers, chills, nausea or vomiting. She denies any vaginal discharge. She reports her clothing touching her vaginal area seems to greatly exacerbate the pain. She was seen in the clinic on January 17, 2018. She was started on Diflucan for presumed yeast infection. She took this to completion. She had a wet prep done at that time which showed moderate clue cells. She was then put on a 5 day course of vaginal Flagyl. GC/ chlyamdia testing done which was negative. She reports that she has tried multiple [id number] creams but this does not seem to clear up the infection. She has not seen OB for this problem since it started. Duration: Week(s): (8) Location: Reports: Pelvis (vagina) Quality: Reports: Burning Bladder Pain Score (Numeric/FACES): 7 - Related Data Allergies Allergy/AdvReac Type Severity Reaction Status Date / Time morphine AdvReac Mild Nausea and Verified 09/15/17 18:38 Vomiting latex Allergy Intermediate Blisters Uncoded 09/15/17 18:38 Home Meds: Home Meds Levothyroxine 50 mcg PO DAILY 12/24/13 [History] Pramipexole Di-HCl [Mirapex] 1 mg PO DAILY 06/25/14 [History] Insulin Detemir [Levemir] 20 unit SUBCUT QAM 06/13/16 [History] Buprenorphine HCl/Naloxone HCl [Buprenorphin-Naloxon 8-2 mg Sl] 1 each SL BID [History] Cyclobenzaprine [Flexeril] 10 mg PO BID PRN 09/15/17 [History] Insulin Aspart [Novolog Flexpen] 1 dose SQ ASDIRECTED 09/15/17 [History] Insulin Detemir [Levemir] 20 units SQ BID 09/15/17 [History] Buprenorphine HCl/Naloxone HCl [Suboxone 4 mg-1 mg Sl Film] 8.2 mg PO TID [History] Gabapentin [Neurontin] 300 mg PO BID 03/21/18 [History] Lidocaine 2% [Xylocaine 2% Jelly] 30 ml TOP TID #1 tube 03/21/18 [Rx] Omeprazole 40 mg PO DAILY 03/21/18 [History] Spironolactone [Aldactone] 25 mg PO DAILY 03/21/18 [History] valACYclovir [Valtrex] 1,000 mg PO BID #20 tablet 03/21/18 [Rx] Past Medical History HEENT History: Reports: Impaired Vision Other HEENT History: wears eyeglasses Cardiovascular History: Reports: Hypertension Respiratory History: Reports: Bronchitis, Recurrent, Pneumonia, Recurrent Gastrointestinal History: Reports: Cirrhosis, 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 Musculoskeletal History: Reports: Other (See Below) Other Musculoskeletal History: Scoliosis Neurological History: Reports: Migraines Psychiatric History: Reports: Addiction, Anxiety, Depression Endocrine/Metabolic History: Reports: Diabetes, Type I, Hypothyroidism Hematologic History: Reports: Anemia Oncologic (Cancer) History: Reports: Cervix, Thyroid - Infectious Disease History Infectious Disease History: Reports: Chicken Pox, Hepatitis C, Influenza, Shingles - Past Surgical History Cardiovascular Surgical History: Reports: None GI Surgical History: Reports: Appendectomy Female Surgical History: Reports: Hysterectomy, Tubal Ligation Neurological Surgical History: Reports: None Social & Family History - Family History Family Medical History: Noncontributory - Tobacco Use Smoking Status *Q: Current Every Day Smoker Years of Tobacco use: 20 Packs/Tins Daily: 1 - Caffeine Use Caffeine Use: Reports: Soda, Tea - Recreational Drug Use Recreational Drug Use: No - Living Situation & Occupation Living situation: Reports: , with Family Occupation: Disabled ED ROS GENERAL - Review of Systems Review Of Systems: See Below Constitutional: Denies: Fever, Chills GI/Abdominal: Denies: Nausea, Vomiting : Reports: Dysuria, Hematuria (sporadic), Other (reports vulvar pain, swelling , erythema and itching). Denies: Discharge Musculoskeletal: Reports: Back Pain (low back) ED EXAM, RENAL/ - Physical Exam Exam: See Below Exam Limited By: No Limitations General Appearance: Alert, WD/WN, No Apparent Distress Throat/Mouth: Normal Inspection, Normal Lips Respiratory/Chest: No Respiratory Distress, Lungs Clear, Normal Breath Sounds Cardiovascular: Normal Peripheral Pulses, Regular Rate, Rhythm, No Murmur (Female) Exam: Other (Vulva is erythematous and swollen. No blistering lesions. Multiple erythematous open areas. Vagina does not have any lesions.) Neurological: Alert, Oriented, Normal Cognition Psychiatric: Normal Affect, Normal Mood Skin Exam: Warm, Dry, Normal Color Course - Vital Signs Last Recorded V/S: Last Vital Signs Temp 97.4 F 03/21/18 12:36 Pulse 107 H 03/21/18 12:36 Resp 20 03/21/18 12:36 BP 159/115 H 03/21/18 12:36 Pulse Ox 96 03/21/18 12:36 - Orders/Labs/Meds Labs: Laboratory Tests 03/21/18 Range/Units 12:35 Urine Color Yellow (Yellow) Urine Appearance Clear (Clear) Urine pH 6.5 (5.0-8.0) Ur Specific [place] 1.015 (1.005-1.030) Urine Protein Negative (Negative) Urine Glucose (UA) 2+ H (Negative) Urine Ketones Negative (Negative) Urine Occult Blood 1+ H (Negative) Urine Nitrite Negative (Negative) Urine Bilirubin Negative (Negative) Urine Urobilinogen 0.2 (0.2-1.0) Ur Leukocyte Esterase Negative (Negative) Urine RBC 5-10 H (0-5) /hpf Urine WBC 0-5 (0-5) /hpf Ur Epithelial Cells 0-5 (0-5) /hpf Urine Bacteria Few (FEW) /hpf Urine Mucus Not seen (FEW) /hpf - Re-Assessments/Exams Free Text/Narrative Re-Assessment/Exam: 03/21/18 14:25 Patient's vulvar area is erythematous and swollen. She has several erythematous lesions. No blisters. I reviewed the wet prep results with her. She declined gonorrhea and chlamydia testing as she has not had intercourse since her previous test. This is possibly herpes with open lesions. Given that it is not getting any better I will start her on some Valtrex and we will obtain a herpes swab. I will also give her some topical lidocaine for pain relief. Discharge instructions as documented. 03/25/18 19:20 Herpes results returned negative. Spoke with the patient and gave her the results. Continues to have pain and discomfort. She has started the Valtrex. Educated her she could discontinue it at this time. I highly encouraged her to see OB tomorrow since this has been going on for so long unclear at this point was causing her discomfort. Expresses understanding. Departure - Departure Time of Disposition: 14:26 Disposition: Home, Self-Care 01 Condition: Fair Clinical Impression: Herpes - Discharge Information Prescriptions: Lidocaine 2% [Xylocaine 2% Jelly] 30 ml TOP TID #1 tube valACYclovir [Valtrex] 1,000 mg PO BID #20 tablet Instructions: Genital Herpes Referrals: PCP,Not In Area [Primary Care Provider] - Nataly Mendieta MD [Physician] - Forms: ED Department Discharge Additional Instructions: Apply the topical lidocaine jelly sparingly to the area 2 to 3 times a day as needed for discomfort relief. May take [id number] Motrin as needed for additional discomfort. Valtrex PO twice a day for 10 days. Follow up with OB within 2 weeks for recheck of your symptoms. Recommend Dr. Mendieta at the [facility]. Call [phone] to schedule with her. Please return to the ER if your symptoms change or worsen.
== END 2018-03-21 14:45 | disposition home or self-care (01) ==
LOC: JD.ED 12:25
DX: B00.9 Herpesviral infection, unspecified (principal); I10 Essential (primary) hypertension; E10.9 Type 1 diabetes mellitus without complications; F17.210 Nicotine dependence, cigarettes, uncomplicated; Z91.040 Latex allergy status; Z88.5 Allergy status to narcotic agent; Z79.4 Long term (current) use of insulin
CPT/HCPCS: 81001; 87210; 87801; 87808; 99283

== ENCOUNTER 2018-05-09 15:38 | Emergency (ER) | payer MEDICAID ==
--- NOTE | 2018-05-09 17:25 | EDM.PDOC ---
ED HPI GENERAL MEDICAL PROBLEM - General Chief Complaint: General Stated Complaint: SEVERE TOOTH ACHE/SUGAR IS HIGH Time Seen by Provider: 05/09/18 16:03 right side of face Pain Score (Numeric/FACES): 10 - Related Data Allergies Allergy/AdvReac Type Severity Reaction Status Date / Time morphine AdvReac Mild Nausea and Verified 05/09/18 15:49 Vomiting latex Allergy Intermediate Blisters Uncoded 05/09/18 15:49 Home Meds: Home Meds Levothyroxine 50 mcg PO DAILY 12/24/13 [History] Pramipexole Di-HCl [Mirapex] 1 mg PO DAILY 06/25/14 [History] Insulin Detemir [Levemir] 20 unit SUBCUT QAM 06/13/16 [History] Buprenorphine HCl/Naloxone HCl [Buprenorphin-Naloxon 8-2 mg Sl] 1 each SL BID [History] Insulin Aspart [Novolog Flexpen] 1 dose SQ ASDIRECTED 09/15/17 [History] Buprenorphine HCl/Naloxone HCl [Suboxone 4 mg-1 mg Sl Film] 8.2 mg PO TID [History] Omeprazole 40 mg PO DAILY 03/21/18 [History] Spironolactone [Aldactone] 25 mg PO DAILY 03/21/18 [History] Hydrocodone/Acetaminophen [Hydrocodon-Acetaminophen 5-325] 1 each PO Q6HR PRN 2 Days #6 tablet 05/09/18 [Rx] Insulin Detemir [Levemir] 18 unit SQ BEDTIME 05/09/18 [History] Past Medical History HEENT History: Reports: Impaired Vision Other HEENT History: wears eyeglasses Cardiovascular History: Reports: Hypertension Respiratory History: Reports: Bronchitis, Recurrent, Pneumonia, Recurrent Gastrointestinal History: Reports: Cirrhosis, GERD, Hepatitis 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 Musculoskeletal History: Reports: Other (See Below) Other Musculoskeletal History: Scoliosis Neurological History: Reports: Migraines Psychiatric History: Reports: Addiction, Anxiety, Depression Endocrine/Metabolic History: Reports: Diabetes, Type I, Hypothyroidism Hematologic History: Reports: Anemia Oncologic (Cancer) History: Reports: Cervix, Thyroid - Infectious Disease History Infectious Disease History: Reports: Chicken Pox, Hepatitis C, Influenza, Shingles - Past Surgical History Cardiovascular Surgical History: Reports: None GI Surgical History: Reports: Appendectomy Female Surgical History: Reports: Hysterectomy, Tubal Ligation Neurological Surgical History: Reports: None Social & Family History - Family History Family Medical History: Noncontributory - Tobacco Use Smoking Status *Q: Current Every Day Smoker Years of Tobacco use: 20 Packs/Tins Daily: 0.5 - Caffeine Use Caffeine Use: Reports: Soda - Recreational Drug Use Recreational Drug Use: Yes Drug Use in Last 12 Months: No Recreational Drug Type: Reports: Methamphetamine - Living Situation & Occupation Living situation: Reports: , with Family Occupation: Disabled ED ROS GENERAL - Review of Systems Review Of Systems: See Below ED EXAM, GENERAL - Physical Exam Exam: See Below Course - Vital Signs Last Recorded V/S: Last Vital Signs Temp 36.5 C 05/09/18 15:40 Pulse 94 05/09/18 15:40 Resp 18 05/09/18 15:40 BP 167/95 H 05/09/18 15:40 Pulse Ox 100 05/09/18 15:40 - Orders/Labs/Meds Orders: Active Orders 24 hr Category Date Time Status Peripheral IV Care [RC] . DIRECTED Care 05/09/18 17:56 Active UA W/MICROSCOPIC [URIN] Stat Lab 05/09/18 18:32 Ordered Sodium Chloride 0.9% [Saline Flush] Med 05/09/18 17:56 Active 10 ml FLUSH ASDIRECTED PRN Peripheral IV Insertion Adult [OM.PC] Routine Oth 05/09/18 17:56 Ordered Medication Orders Sodium Chloride (Saline Flush) 10 ml FLUSH ASDIRECTED PRN PRN Reason: Keep Vein Open Last Admin: 05/09/18 18:12 Dose: 10 ml Labs: Laboratory Tests 05/09/18 05/09/18 05/09/18 Range/Units 17:08 17:08 18:00 Puncture Site Lt radial ABG pH 7.39 (7.35-7.45) ABG pCO2 46.8 H (35.0-45.0) mmHg ABG pO2 83.0 (80.0-100.0) mmHg ABG HCO3 28.0 H (22.0-26.0) meq/L ABG O2 Saturation 97.1 H (96.0-97.0) % ABG Base Excess 2.9 H (-2-2.0) Freddy Test Positive O2 Delivery Device Room air FiO2 21.00 (21.00-100.00) % Sodium 131 L (136-145) mEq/L Potassium 4.0 (3.5-5.1) mEq/L Chloride 96 L (98-107) mEq/L Carbon Dioxide 28 (21-32) mEq/L Anion Gap 11.0 (5-15) BUN 8 (7-18) mg/dL Creatinine 1.0 (0.55-1.02) mg/dL Est Cr Clr Drug Dosing 76.36 mL/min Estimated GFR (MDRD) > 60 (>60) mL/min BUN/Creatinine Ratio 8.0 L (14-18) Glucose 630 H* 630 H* (74-106) mg/dL Calcium 8.7 (8.5-10.1) mg/dL Total Bilirubin 0.7 (0.2-1.0) mg/dL AST 90 H (15-37) U/L ALT 162 H (14-59) U/L Alkaline Phosphatase 151 H (46-116) U/L Total Protein 7.9 (6.4-8.2) g/dl Albumin 3.3 L (3.4-5.0) g/dl Globulin 4.6 gm/dL Albumin/Globulin Ratio 0.7 L (1-2) Urine Color (Yellow) Urine Appearance (Clear) Urine pH (5.0-8.0) Ur Specific [place] (1.005-1.030) Urine Protein (Negative) Urine Glucose (UA) (Negative) Urine Ketones (Negative) Urine Occult Blood (Negative) Urine Nitrite (Negative) Urine Bilirubin (Negative) Urine Urobilinogen (0.2-1.0) Ur Leukocyte Esterase (Negative) Urine RBC (0-5) /hpf Urine WBC (0-5) /hpf Ur Epithelial Cells (0-5) /hpf Urine Bacteria (FEW) /hpf Urine Mucus (FEW) /hpf 05/09/18 Range/Units 18:32 Puncture Site ABG pH (7.35-7.45) ABG pCO2 (35.0-45.0) mmHg ABG pO2 (80.0-100.0) mmHg ABG HCO3 (22.0-26.0) meq/L ABG O2 Saturation (96.0-97.0) % ABG Base Excess (-2-2.0) Freddy Test O2 Delivery Device FiO2 (21.00-100.00) % Sodium (136-145) mEq/L Potassium (3.5-5.1) mEq/L Chloride (98-107) mEq/L Carbon Dioxide (21-32) mEq/L Anion Gap (5-15) BUN (7-18) mg/dL Creatinine (0.55-1.02) mg/dL Est Cr Clr Drug Dosing mL/min Estimated GFR (MDRD) (>60) mL/min BUN/Creatinine Ratio (14-18) Glucose (74-106) mg/dL Calcium (8.5-10.1) mg/dL Total Bilirubin (0.2-1.0) mg/dL AST (15-37) U/L ALT (14-59) U/L Alkaline Phosphatase (46-116) U/L Total Protein (6.4-8.2) g/dl Albumin (3.4-5.0) g/dl Globulin gm/dL Albumin/Globulin Ratio (1-2) Urine Color Yellow (Yellow) Urine Appearance Clear (Clear) Urine pH 7.5 (5.0-8.0) Ur Specific [place] 1.015 (1.005-1.030) Urine Protein Negative (Negative) Urine Glucose (UA) 2+ H (Negative) Urine Ketones Negative (Negative) Urine Occult Blood Negative (Negative) Urine Nitrite Negative (Negative) Urine Bilirubin Negative (Negative) Urine Urobilinogen 0.2 (0.2-1.0) Ur Leukocyte Esterase Negative (Negative) Urine RBC 0-5 (0-5) /hpf Urine WBC 0-5 (0-5) /hpf Ur Epithelial Cells 0-5 (0-5) /hpf Urine Bacteria Few (FEW) /hpf Urine Mucus Few (FEW) /hpf Meds: Medications Generic Name Dose Route Start Last Admin Trade Name Freq PRN Reason Stop Dose Admin Sodium Chloride 10 ml 05/09/18 17:56 05/09/18 18:12 Saline Flush FLUSH 10 ml ASDIRECTED PRN Administration Keep Vein Open Discontinued Medications Generic Name Dose Route Start Last Admin Trade Name Freq PRN Reason Stop Dose Admin Hydrocodone Bitart/Acetaminophen 1 tab 05/09/18 19:35 05/09/18 19:42 [place] 325-5 Mg PO 05/09/18 19:36 1 tab ONETIME ONE Administration Hydromorphone HCl 1 mg 05/09/18 18:05 05/09/18 18:10 Dilaudid IVPUSH 05/09/18 18:06 1 mg ONETIME ONE Administration Sodium Chloride 1,000 mls @ 999 mls/hr 05/09/18 17:58 05/09/18 18:11 Normal Saline IV 05/09/18 18:58 999 mls/hr ONETIME ONE Administration Insulin Human Regular 5 unit 05/09/18 18:02 05/09/18 18:10 Humulin R IV 05/09/18 18:03 5 units ONETIME ONE Administration Insulin Human Regular 3 unit 05/09/18 19:30 05/09/18 19:32 Humulin R IV 05/09/18 19:31 3 units ONETIME ONE Administration Ondansetron HCl 4 mg 05/09/18 18:13 05/09/18 18:17 Zofran IVPUSH 05/09/18 18:14 4 mg ONETIME ONE Administration Departure - Departure Time of Disposition: 21:37 Disposition: Home, Self-Care 01 Condition: Fair Clinical Impression: Toothache, Poorly controlled diabetes mellitus - Discharge Information *PRESCRIPTION DRUG MONITORING PROGRAM REVIEWED*: No *COPY OF PRESCRIPTION DRUG MONITORING REPORT IN PATIENT ROSA ISELA: No Prescriptions: Hydrocodone/Acetaminophen [Hydrocodon-Acetaminophen 5-325] 1 each PO Q6HR PRN 2 Days #6 tablet PRN Reason: Pain Referrals: PCP,Unknown [Primary Care Provider] - Forms: ED Department Discharge - My Orders Last 24 Hours: My Active Orders 05/09/18 17:56 Peripheral IV Care [RC] . DIRECTED Sodium Chloride 0.9% [Saline Flush] 10 ml FLUSH ASDIRECTED PRN Peripheral IV Insertion Adult [OM.PC] Routine 05/09/18 18:32 UA W/MICROSCOPIC [URIN] Stat - Assessment/Plan Last 24 Hours: My Active Orders 05/09/18 17:56 Peripheral IV Care [RC] . DIRECTED Sodium Chloride 0.9% [Saline Flush] 10 ml FLUSH ASDIRECTED PRN Peripheral IV Insertion Adult [OM.PC] Routine 05/09/18 18:32 UA W/MICROSCOPIC [URIN] Stat
[2018-05-09] MEDS ORDERED: Sodium Chloride 0.9% 10 ML Syringe FLUSH PRN (17:56)
[2018-05-09] MEDS ORDERED: Sodium Chloride 0.9% 1,000 ML IV ONE (17:58)
[2018-05-09] MEDS ORDERED: Insulin Regular, Human 100 Units/ML 3 ML Vial IV ONE ×2 (18:02→19:30)
[2018-05-09] MEDS ORDERED: HYDROmorphone 1 MG/ML Syringe IVPUSH ONE (18:05)
[2018-05-09] MEDS ORDERED: Ondansetron 4 MG/2 ML SDV IVPUSH ONE (18:13)
[2018-05-09] MEDS ORDERED: Acetaminophen/HYDROcodone 325-5 MG Tab PO ONE (19:35)
[2018-05-09] MEDS ORDERED: Amoxicillin 500 MG Cap PO ONE (21:44)
--- NOTE | 2018-05-09 22:51 | ER ---
REASON FOR ADMISSION: Toothache. HISTORY OF PRESENT ILLNESS: This 37-year-old, diabetic woman comes in with a 1 to 2-week history of an increasing toothache involving a right maxillary molar. The pain has increased considerably over the past 3 days to the point where she could not tolerate it anymore and decided to come in. She is a type 2 diabetic and noticed her Accu- Chek this evening was greater than 400, so she came in to have that checked as well. Normally, the patient is on Levemir insulin 18 units at bedtime and 20 units q.a.m. with a sliding scale that is somewhat abbreviated where she takes 2 units if her Accu-Chek is between 280 and 300 and 4 units if it is greater than 300. She has not had any fever or chills. Denies any shortness of breath or pulmonary symptoms. She has not had any irritative voiding symptoms or GI symptoms. PAST MEDICAL HISTORY: Reviewed, see electronic medical record. CURRENT MEDICATIONS: Reviewed, see electronic medical record. ALLERGIES: Morphine (GI symptoms) and latex. PHYSICAL EXAMINATION: VITAL SIGNS: See electronic medical record. HEENT: Head is normocephalic. No scleral icterus. There is mild conjunctival injection bilaterally. Oropharynx: She does have tenderness to direct touch of her right second and third maxillary molars. There is slight redness along the gingival line, but there is no tenderness or puffiness in the buccal mucosa. No adenopathy is noted. CHEST: Clear to auscultation. CARDIAC: Regular rate without murmur. LABORATORY DATA: Blood sugar was checked here and came back at 630, so we checked a CMP, and indeed it was 630. Her initial sodium was 131 with a potassium of 4.0, CO2 content of 28 (normal), an anion gap of 11 with a creatinine of 1.0. Her urine showed 2+ glucose but was negative for ketones, and no sign of UTI with no pyuria or bacteria. ABGs show pH is 7.39, pCO2 of 46, O2 was 97, bicarbonate 28, with a base excess of 2.9. FURTHER EMERGENCY ROOM COURSE: She was given 1 L of normal saline along with 5 units of regular insulin, and 1 hour later, blood sugar was checked and it was 339. We gave her an additional 3 units of regular insulin after that, and her blood sugar came back at 97. She did have a fruit cup, and exactly 1 hour later, her blood sugar was 211. She did receive some Dilaudid IV for pain, 1 mg IV, as well as 1 hydrocodone 5 mg and 325 of acetaminophen x1. Following this, she felt considerably better although she was still fairly uncomfortable with regard to her toothache. She does apparently have an appointment to be seen next week by a dentist. Because of her symptoms, we are going to go ahead and discharge her on amoxicillin 1000 mg q.12 hours x5 more days. She received enough to receive 1 g of this, this evening, and another one in the morning until she can get her prescription filled. Additionally, she was given hydrocodone with acetaminophen 5/325, dispensed #6, one q.4 to 6 hours p.r.n. pain. I discussed her using NSAIDs such as ibuprofen or naprosyn as well. All questions were answered. She realizes the importance of following up with her primary care provider so a modification in her diabetes management be made appropriately. KAMILAH /[id number]
[2018-05-09 23:04] VITALS: BP 114/71
== END 2018-05-09 22:15 | disposition home or self-care (01) ==
LOC: JD.ED 15:38
DX: K08.89 Other specified disorders of teeth and supporting structures (principal); E11.9 Type 2 diabetes mellitus without complications; I10 Essential (primary) hypertension; Z88.5 Allergy status to narcotic agent; Z91.040 Latex allergy status; Z79.899 Other long term (current) drug therapy; E03.9 Hypothyroidism, unspecified; F17.210 Nicotine dependence, cigarettes, uncomplicated; Z79.4 Long term (current) use of insulin
CPT/HCPCS: 36415; 36600; 80053; 81001; 82803; 82947; 82962; 96361; 96374; 96375; 96376; 99284; A9270; J1170; J1815; J2405; J7040; J7050; 99283

== ENCOUNTER 2018-11-01 15:07 | Emergency (ER) | payer MEDICAID ==
[2018-11-01 15:31] VITALS: BP 148/105
--- NOTE | 2018-11-01 16:19 | EDM.PDOC ---
ED HPI GENERAL MEDICAL PROBLEM - General Chief Complaint: General Stated Complaint: WEAK,LITE HEADED, STOMACH PAIN Time Seen by Provider: 11/01/18 15:43 Source of Information: Reports: Patient, RN Notes Reviewed History Limitations: Reports: No Limitations - History of Present Illness INITIAL COMMENTS - FREE TEXT/NARRATIVE: The patient states that she has had both dark and bright red blood per rectum for the past 2 weeks. She states that she has anal as well as lower back and abdominal pain when she defecates. She states that she is chronically constipated, since childhood, but that it is worse over the past couple of weeks she states that she takes a stool softener which does not help. She does not take a bulk laxative. The patient also reports gross hematuria today, although no dysuria or urinary frequency. No flank pain. No recent fever. She reports nausea, but no emesis. The patient states that she has a history of cirrhosis due to untreated hepatitis C. She saw Dr. Frias, an Infectious Disease specialist, last week. She states that bloodwork was done, but not a rectal exam. The patient does not know the results of the blood work. No prescriptions were written. An appointment was made for the patient to see a Microbiology Teacher in [place], whose name the patient does not know, on 12/21/2018. The patient's PCP is Dr. Ninfa Avelar. Abdomen Pain Score (Numeric/FACES): 7 - Related Data Allergies Allergy/AdvReac Type Severity Reaction Status Date / Time morphine AdvReac Mild Nausea and Verified 05/09/18 15:49 Vomiting latex Allergy Intermediate Blisters Uncoded 05/09/18 15:49 Home Meds: Home Meds Levothyroxine 50 mcg PO DAILY 12/24/13 [History] Pramipexole Di-HCl [Mirapex] 1 mg PO DAILY 06/25/14 [History] Insulin Detemir [Levemir] 20 unit SUBCUT QAM 06/13/16 [History] Buprenorphine HCl/Naloxone HCl [Buprenorphin-Naloxon 8-2 mg Sl] 1 each SL BID [History] Insulin Aspart [Novolog Flexpen] 1 dose SQ ASDIRECTED 09/15/17 [History] Buprenorphine HCl/Naloxone HCl [Suboxone 4 mg-1 mg Sl Film] 8.2 mg PO TID [History] Omeprazole 40 mg PO DAILY 03/21/18 [History] Spironolactone [Aldactone] 25 mg PO DAILY 03/21/18 [History] Hydrocodone/Acetaminophen [Hydrocodon-Acetaminophen 5-325] 1 each PO Q6HR PRN 2 Days #6 tablet 05/09/18 [Rx] Insulin Detemir [Levemir] 18 unit SQ BEDTIME 05/09/18 [History] Past Medical History HEENT History: Reports: Impaired Vision Other HEENT History: wears eyeglasses Cardiovascular History: Reports: Hypertension Gastrointestinal History: Reports: Cirrhosis (due to untreated hepatitis C, diagnosed 2003) 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 Hx drug-seeking behavior), Anxiety, Depression Endocrine/Metabolic History: Reports: Diabetes, Type I, Hypothyroidism Hematologic History: Reports: Anemia Oncologic (Cancer) History: Reports: Cervix (s/p hysterectomy), Thyroid (s/p thyroidectomy) - Infectious Disease History Infectious Disease History: Reports: Chicken Pox, Hepatitis C (untreated), Influenza, Shingles - Past Surgical History HEENT Surgical History: Reports: Oral Surgery (wisdom teeth extraction), Tonsillectomy GI Surgical History: Reports: Appendectomy Female Surgical History: Reports: Hysterectomy, Salpingo-Oophorectomy ( bilateral), Tubal Ligation Endocrine Surgical History: Reports: Thyroidectomy Social & Family History - Family History Family Medical History: Noncontributory - Tobacco Use Smoking Status *Q: Current Every Day Smoker Years of Tobacco use: 26 Packs/Tins Daily: 0.5 Packs/Tins Daily Comment: Down from 1 ppd - Caffeine Use Caffeine Use: Reports: Soda, Tea - Alcohol Use Alcohol Use History: Yes Date/Time of Last Drink Comment: No alcohol since 2012 - Recreational Drug Use Recreational Drug Use: Yes Drug Use in Last 12 Months: No Recreational Drug Type: Reports: Methamphetamine (last injectedf 01/06/2017), Other (see below) (Opioids - last abused 01/06/2017. On Suboxone) - Living Situation & Occupation Living situation: Reports: (), with Family (Son) Occupation: Disabled ED ROS GENERAL - Review of Systems Review Of Systems: ROS reveals no pertinent complaints other than HPI. ED EXAM, GENERAL - Physical Exam Exam: See Below Exam Limited By: No Limitations General Appearance: Alert, WD/WN, No Apparent Distress Eye Exam: Bilateral Eye: EOMI, Normal Inspection Ears: Normal External Exam, Hearing Grossly Normal Nose: Normal Inspection Throat/Mouth: Normal Inspection, Normal Lips, Normal Oropharynx, Normal Voice, No Airway Compromise Head: Atraumatic, Normocephalic Neck: Normal Inspection, Full Range of Motion Respiratory/Chest: No Respiratory Distress, Lungs Clear, Normal Breath Sounds, No Accessory Muscle Use Cardiovascular: Normal Peripheral Pulses, Regular Rate, Rhythm, No Edema, No Gallop, No JVD, No Murmur, No Rub Peripheral Pulses: 4+: Radial (L), Radial (R) GI/Abdominal: Normal Bowel Sounds, Soft, No Organomegaly, No Distention, No Abnormal Bruit, No Mass, Tender (Generalized, non-focal) (Female) Exam: Deferred Rectal (Female) Exam: Normal Exam, Normal Rectal Tone, Heme - Stool (red). No: Hemorrhoids, Tenderness Back Exam: Normal Inspection, Full Range of Motion. No: CVA Tenderness (L), CVA Tenderness (R) Extremities: Normal Inspection, Normal Range of Motion, No Pedal Edema, Normal Capillary Refill Neurological: Alert, Oriented, Normal Cognition, No Motor/Sensory Deficits Psychiatric: Normal Affect Skin Exam: Warm, Dry, Intact, Normal Color, No Rash Course - Vital Signs Last Recorded V/S: Last Vital Signs Temp 36.6 C 11/01/18 15:30 Pulse 100 11/01/18 15:30 Resp 20 11/01/18 15:30 BP 148/105 H 11/01/18 15:30 Pulse Ox 98 11/01/18 15:30 Orthostatic Blood Pressure [ 127/92 Standing] Orthostatic Blood Pressure [ 125/95 Sitting] Orthostatic Blood Pressure [ 127/88 Supine] - Orders/Labs/Meds Orders: Active Orders 24 hr Category Date Time Status Orthostatic Vital Signs [RC] STAT Care 11/01/18 16:12 Active CULTURE URINE [RM] Stat Lab 11/01/18 17:24 Ordered Labs: Laboratory Tests 11/01/18 Range/Units 16:49 Urine Color [place] H (Yellow) Urine Appearance Cloudy H (Clear) Urine pH 6.5 (5.0-8.0) Ur Specific [place] 1.020 (1.005-1.030) Urine Protein 1+ H (Negative) Urine Glucose (UA) 2+ H (Negative) Urine Ketones Negative (Negative) Urine Occult Blood 3+ H (Negative) Urine Nitrite Negative (Negative) Urine Bilirubin Negative (Negative) Urine Urobilinogen 1.0 (0.2-1.0) Ur Leukocyte Esterase Negative (Negative) Urine RBC >100 H (0-5) /hpf Urine WBC 0-5 (0-5) /hpf Ur Epithelial Cells 0-5 (0-5) /hpf Urine Bacteria Rare (FEW) /hpf Urine Mucus Not seen (FEW) /hpf - Re-Assessments/Exams Free Text/Narrative Re-Assessment/Exam: 11/01/18 16:13 On rectal examination, the patient's stool is red, however, it is heme- negative. The patient does not appear to have a GI bleed. I will check orthostatics, but if they are within normal limits, I don't see the need for blood work today. If the patient had been found to have a GI bleed, then the urinalysis would need to have been collected by a quick catheter, however, since she does not, the patient may provide a urine sample by clean catch. 11/01/18 16:33 The patient is not orthostatic. 11/01/18 17:23 The patient's urinalysis is remarkable for 3+ occult blood and greater than 100 RBCs, but rare bacteria and no WBCs. As the patient does not have dysuria, urinary frequency or urinary urgency, the patient does not have a UTI, and therefore antibiotics are not indicated, however, I will order a urine culture. I will discharge the patient home, and have her follow-up with her PCP in a few days, not only to check on the urine culture results, but also to refer the patient to a urologist, should her gross hematuria persist. Departure - Departure Time of Disposition: 17:30 Disposition: Home, Self-Care 01 Condition: Good Clinical Impression: Gross hematuria - Discharge Information *PRESCRIPTION DRUG MONITORING PROGRAM REVIEWED*: Not Applicable *COPY OF PRESCRIPTION DRUG MONITORING REPORT IN PATIENT ROSA ISELA: Not Applicable Referrals: Ninfa Avelar MD [Primary Care Provider] - Forms: ED Department Discharge Additional Instructions: You were seen in the emergency room for a 2 week history of dark and bright red per rectum, and bloody urine today. On rectal examination, your stool was red, but it was not due to blood. Your urinalysis did, however, find blood, but you do not appear to have a urinary tract infection. A sample of your urine has been sent for culture. We recommend that you follow-up with your PCP, Dr. Ninfa Avelar, on 11/04/2018, to check on your urine culture results. If positive, you should be treated for urinary tract infection. If you continue to have bloody urine, Dr. Avelar may wish to refer you to a Urologist for further evaluation. If any other problems, please do not hesitate to return to the ER. - My Orders Last 24 Hours: My Active Orders 11/01/18 16:12 Orthostatic Vital Signs [RC] STAT 11/01/18 17:24 CULTURE URINE [RM] Stat - Assessment/Plan Last 24 Hours: My Active Orders 11/01/18 16:12 Orthostatic Vital Signs [RC] STAT 11/01/18 17:24 CULTURE URINE [RM] Stat
== END 2018-11-01 17:50 | disposition home or self-care (01) ==
LOC: JD.ED 15:07
DX: R31.0 Gross hematuria (principal); I10 Essential (primary) hypertension; E10.9 Type 1 diabetes mellitus without complications; E03.9 Hypothyroidism, unspecified; F17.210 Nicotine dependence, cigarettes, uncomplicated; Z88.8 Allergy status to other drugs, medicaments and biological substances; Z79.899 Other long term (current) drug therapy
CPT/HCPCS: 81001; 87086; 99282; 99283

== ENCOUNTER 2019-05-22 12:43 | Emergency (ER) | payer MEDICAID ==
[2019-05-22 13:02] VITALS: BP 145/101; PULSE 89
[2019-05-22] MEDS ORDERED: Sodium Chloride 0.9% 10 ML Syringe FLUSH PRN (13:39)
[2019-05-22] MEDS ORDERED: Ondansetron 4 MG/2 ML SDV IVPUSH ONE (13:39)
[2019-05-22] MEDS ORDERED: Sodium Chloride 0.9% 1,000 ML IV ONE (13:39)
[2019-05-22] MEDS ORDERED: Ketorolac 15 MG/ML SDV IVPUSH ONE ×2 (13:39→16:08)
--- NOTE | 2019-05-22 14:08 | EDM.PDOC ---
ED HPI GENERAL MEDICAL PROBLEM - General Chief Complaint: Abdominal Pain Stated Complaint: SIDE AND BACK PAIN Time Seen by Provider: 05/22/19 13:22 Source of Information: Reports: Patient History Limitations: Reports: No Limitations - History of Present Illness INITIAL COMMENTS - FREE TEXT/NARRATIVE: 38-year-old female presents for evaluation and treatment of abdominal pain. Patient reports she has had abdominal pain for the last 2 days. Reports that is located on the right side. She describes it as a dull ache. At times is sharp. Came on suddenly. Is in the right lower quadrant but also in the right upper quadrant. She reports some nausea but no vomiting. No diarrhea. Last bowel movement was today. She reports subjective fevers and chills. She also reports dysuria and increased urinary frequency. No previous abdominal surgeries. Patient is on Suboxone and is running not want any narcotic medication for pain control. 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 History of hepatitis C and end stage cirrhosis. Right Abdominal Pain Score (Numeric/FACES): 7 - Related Data Allergies Allergy/AdvReac Type Severity Reaction Status Date / Time morphine AdvReac Mild Nausea and Verified 05/22/19 12:55 Vomiting latex Allergy Intermediate Blisters Uncoded 05/22/19 12:55 Home Meds: Home Meds Levothyroxine 50 mcg PO DAILY 12/24/13 [History] Pramipexole Di-HCl [Mirapex] 1 mg PO DAILY 06/25/14 [History] Insulin Aspart [Novolog Flexpen] 1 dose SQ ASDIRECTED 09/15/17 [History] Buprenorphine HCl/Naloxone HCl [Suboxone 4 mg-1 mg Sl Film] 8.2 mg PO TID [History] Spironolactone [Aldactone] 25 mg PO DAILY 03/21/18 [History] Insulin Detemir [Levemir] 50 unit SQ BID 05/09/18 [History] Estradiol Patch. 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 Hx drug-seeking behavior), Anxiety, Depression Endocrine/Metabolic History: Reports: Diabetes, Type I, Hypothyroidism Hematologic History: Reports: Anemia Oncologic (Cancer) History: Reports: Cervix (s/p hysterectomy), Thyroid (s/p thyroidectomy) - Infectious Disease History Infectious Disease History: Reports: Chicken Pox, Hepatitis C (untreated), Influenza, Shingles - Past Surgical History HEENT Surgical History: Reports: Adenoidectomy, Tonsillectomy Female Surgical History: Reports: Hysterectomy, Tubal Ligation Social & Family History - Family History Family Medical History: Noncontributory - Caffeine Use Caffeine Use: Reports: Soda, Tea - Living Situation & Occupation Living situation: Reports: (), with Family (Son) Occupation: Disabled ED ROS GENERAL - Review of Systems Review Of Systems: See Below Constitutional: Reports: Fever, Chills GI/Abdominal: Reports: Abdominal Pain (right ), Nausea. Denies: Vomiting : Reports: Dysuria, Frequency ED EXAM, GI/ABD - Physical Exam Exam: See Below Exam Limited By: No Limitations General Appearance: Alert, WD/WN, No Apparent Distress Throat/Mouth: Normal Inspection, Normal Voice, No Airway Compromise Respiratory/Chest: No Respiratory Distress, Lungs Clear, Normal Breath Sounds Cardiovascular: Normal Peripheral Pulses, Regular Rate, Rhythm, No Murmur GI/Abdominal Exam: Normal Bowel Sounds, Soft, Tender (RLQ and RUQ), Other (pain at [place] point, negative obturator sign, negative psosas sign, no pain with heel percussion) Neurological: Alert, Oriented, Normal Cognition Psychiatric: Normal Affect, Normal Mood Skin Exam: Warm, Dry, Normal Color Course - Vital Signs Last Recorded V/S: Last Vital Signs Temp 97.5 F 05/22/19 12:58 Pulse 89 05/22/19 12:58 Resp 17 05/22/19 12:58 BP 145/101 H 05/22/19 12:58 Pulse Ox 100 05/22/19 12:58 - Orders/Labs/Meds Labs: Laboratory Tests 05/22/19 05/22/19 05/22/19 Range/Units 13:55 14:00 14:00 WBC 6.20 (3.98-10.04) K/mm3 RBC 5.07 (3.98-5.22) M/mm3 Hgb 14.5 (11.2-15.7) gm/L Hct 44.4 (34.1-44.9) % MCV 87.6 (79.4-94.8) fl MCH 28.6 (25.6-32.2) pg MCHC 32.7 (32.2-35.5) g/dl RDW Std Deviation 43.0 (36.4-46.3) fL Plt Count 118 L (182-369) K/mm3 MPV 10.5 (9.4-12.3) fl Neutrophils % (Manual) 51 (40-60) % Band Neutrophils % 0 (0-10) % Lymphocytes % (Manual) 43 H (20-40) % Atypical Lymphs % 1 % Monocytes % (Manual) 4 (2-10) % Eosinophils % (Manual) 1 (0.7-5.8) % Basophils % (Manual) 0 L (0.1-1.2) Platelet Estimate Decreased Plt Morphology Comment Normal Polychromasia 1+ slight Stomatocytes Few RBC Morph Comment Not Reportable Sodium 141 D (136-145) mEq/L Potassium 3.5 (3.5-5.1) mEq/L Chloride 104 (98-107) mEq/L Carbon Dioxide 28 (21-32) mEq/L Anion Gap 12.5 (5-15) BUN 16 (7-18) mg/dL Creatinine 0.8 (0.55-1.02) mg/dL Est Cr Clr Drug Dosing 91.01 mL/min Estimated GFR (MDRD) > 60 (>60) mL/min BUN/Creatinine Ratio 20.0 H (14-18) Glucose 71 L (74-106) mg/dL Calcium 9.4 (8.5-10.1) mg/dL Total Bilirubin 0.4 (0.2-1.0) mg/dL AST 51 H (15-37) U/L ALT 83 H (14-59) U/L Alkaline Phosphatase 110 (46-116) U/L C-Reactive Protein < 0.2 (<1.0) mg/dL Total Protein 9.1 H (6.4-8.2) g/dl Albumin 4.4 (3.4-5.0) g/dl Globulin 4.7 gm/dL Albumin/Globulin Ratio 0.9 L (1-2) Lipase 132 (73-393) U/L Urine Color Yellow (Yellow) Urine Appearance Clear (Clear) Urine pH 7.0 (5.0-8.0) Ur Specific Lyndon 1.020 (1.005-1.030) Urine Protein Negative (Negative) Urine Glucose (UA) Negative (Negative) Urine Ketones Negative (Negative) Urine Occult Blood Negative (Negative) Urine Nitrite Negative (Negative) Urine Bilirubin Negative (Negative) Urine Urobilinogen 0.2 (0.2-1.0) Ur Leukocyte Esterase Negative (Negative) Urine RBC 0-5 (0-5) /hpf Urine WBC 0-5 (0-5) /hpf Ur Epithelial Cells 0-5 (0-5) /hpf Urine Bacteria Few (FEW) /hpf Urine Mucus Few (FEW) /hpf Meds: Medications Discontinued Medications Generic Name Dose Route Start Last Admin Trade Name Freq PRN Reason Stop Dose Admin Sodium Chloride 1,000 mls @ 999 mls/hr 05/22/19 13:39 05/22/19 14:01 Normal Saline IV 05/22/19 14:39 999 mls/hr ONETIME ONE Administration Ketorolac Tromethamine 15 mg 05/22/19 13:39 05/22/19 14:06 Toradol IVPUSH 05/22/19 13:40 15 mg ONETIME ONE Administration Ketorolac Tromethamine 15 mg 05/22/19 16:08 05/22/19 16:12 Toradol IVPUSH 05/22/19 16:09 15 mg ONETIME ONE Administration Ondansetron HCl 4 mg 05/22/19 13:39 05/22/19 14:03 Zofran IVPUSH 05/22/19 13:40 4 mg ONETIME ONE Administration Sodium Chloride 10 ml 05/22/19 13:39 05/22/19 14:02 Saline Flush FLUSH 10 ml ASDIRECTED PRN Administration Keep Vein Open - Radiology Interpretation Free Text/Narrative:: CT of the abdomen and pelvis without contrast impression per vrad: no evidence of obstructive uropathy. nonobstructive right nephrolithiasis, detailed in reprot. hepatomegaly and lobulated live contour, highly concerning for hepatocellular disease. correlation with appropriate labs is recommended. gallbladder is hydropic. there is no biliary ductal dilatation. severe constipation. other incidental findings. - Re-Assessments/Exams Free Text/Narrative Re-Assessment/Exam: 05/22/19 16:30 Patient reports some pain relief with the Toradol. She is on Suboxone and made me aware of this and did not want anything more for pain. Reviewed the labs and imaging with the patient. When I tell her this is from constipation that she has had significant trouble with constipation. She does see GI specialist. She takes multiple laxatives and stimulants. I encouraged her to follow-up with her GI doctor as this sounds like this is more of a chronic problem and they have tried multiple things. She did try some mineral oil in the meantime if she has this at home. Discharge instructions as documented. Departure - Departure Time of Disposition: 16:30 Disposition: Home, Self-Care 01 Condition: Fair Clinical Impression: Constipation - Discharge Information *PRESCRIPTION DRUG MONITORING PROGRAM REVIEWED*: Yes *COPY OF PRESCRIPTION DRUG MONITORING REPORT IN PATIENT ROSA ISELA: No Instructions: Constipation, Adult Referrals: PCP,Not In Area [Primary Care Provider] - Forms: ED Department Discharge Additional Instructions: mineral oil dosing: Constipation: Oral: Note: Do not use for more than 1 week. Plain (nonemulsified) liquid: 15 to 45 mL in 24 hours (maximum: 45 mL in 24 hours). May be taken as a single dose (at bedtime) or in divided doses. Suspension (emulsion) (Kondremul): 30 to 90 mL daily (maximum: 90 mL daily). May be taken as a single dose or in up to 3 equal divided doses. recommend discussing with your GI doc further management of your constipation. continue to exercise and drink plenty of fluids. Please return to the ER should your symptoms change or worsen.
--- NOTE | 2019-05-24 09:22 | CT ---
CT abdomen and pelvis Technique: Multiple axial sections were obtained from the top the kidneys inferiorly through the pubic symphysis. Intravenous and oral contrast not utilized. Study has been performed as a ureteral stone protocol. Comparison: Previous CT abdomen and pelvis exam of 05/24/16. Small nonobstructing stone is noted within the upper right kidney measuring about 3 mm. No other abnormal calcifications are seen within the kidneys. No ureteral dilatation or ureteral stone is appreciated. Visualized spleen shows no discrete abnormality. Liver shows a slightly irregular surface contour inferiorly as well as liver being mildly generous in size. This finding is stable from previous exam presumably representing a nonspecific chronic hepatocellular process. Adrenal glands are incompletely seen. Visualized portions of the adrenal glands are within normal limits. Pancreas shows no discrete abnormality. Gallbladder contains no calcified gallstones. Aorta shows no aneurysm. No retroperitoneal adenopathy or mesenteric abnormalities are seen. No pelvic mass or adenopathy is identified. Diffuse increased stool is noted within the colon. Appendix not visualized with certainty. Bone window settings were reviewed which appear within normal limits for the patient's age. Impression: 1. Increased stool throughout the colon. 2. Nonobstructing stone within the upper right kidney. No ureteral dilatation or ureteral stone is seen. 3. Slightly abnormal liver as described above most likely representing a nonspecific chronic hepatocellular process. 3. Increased stool within the colon. Diagnostic code #3 I agree with preliminary report from [facility], finalized on 05/22/19, 4:50 PM Central Time
== END 2019-05-22 16:39 | disposition home or self-care (01) ==
LOC: JD.ED 12:43
DX: K59.00 Constipation, unspecified (principal); I10 Essential (primary) hypertension; E10.9 Type 1 diabetes mellitus without complications; F41.9 Anxiety disorder, unspecified; F32.9 Major depressive disorder, single episode, unspecified; E03.9 Hypothyroidism, unspecified; Z86.2 Personal history of diseases of the blood and blood-forming organs and certain disorders involving the immune mechanism; Z90.710 Acquired absence of both cervix and uterus; Z88.5 Allergy status to narcotic agent; Z91.040 Latex allergy status; Z79.899 Other long term (current) drug therapy
CPT/HCPCS: 36415; 74176; 80053; 81001; 83690; 85007; 85027; 86140; 96361; 96374; 96375; 96376; 99284; J1885; J2405; J7040

== ENCOUNTER 2019-09-24 11:25 | Emergency (ER) | payer MEDICAID ==
[2019-09-24 11:39] VITALS: BP 124/90; PULSE 107
[2019-09-24] MEDS ORDERED: cefTRIAXone 1 GM Vial IM ONE (11:53)
[2019-09-24] MEDS ORDERED: Lidocaine 2% Jelly 10 ML Urojet MUCMEM ONE (11:53)
--- NOTE | 2019-09-24 12:01 | EDM.PDOC ---
ED HPI GENERAL MEDICAL PROBLEM - General Chief Complaint: Bite:Animal, Insect Stated Complaint: THINKS SHE WAS BIT BY SOMETHING Time Seen by Provider: 09/24/19 11:35 Source of Information: Reports: Patient, RN Notes Reviewed History Limitations: Reports: No Limitations - History of Present Illness INITIAL COMMENTS - FREE TEXT/NARRATIVE: Patient is a 39-year-old female who presents to the ED for the evaluation of a possible. Patient notes that she did wake up a few days ago, noticed the ramirez on her inner right forearm. She is wondering if she had been bitten in the night. She is not sure if she was bitten by a spider or bug, she did not see this. Again she states that she noticed this when she woke up. She did go to the walk-in clinic yesterday, they prescribed her cephalexin, and they marked the area that was red around the bite. She states she did not have the cephalexin filled as she did not have time to do so yesterday. Patient notes that she woke up this morning with increased redness, swelling and pain to the area. She states that the whole area feels tight, and was worried about the swelling mainly. She still has feeling to her fingers distal to the site, she does not have pain that extends into her elbow. There is erythema noted around the area in question, and the erythema has spread past the initial border marked by the walk-in clinic yesterday. Patient notes she took a total of 4 Excedrin, and 2 ibuprofen yesterday for pain relief. Right Arm Pain Score (Numeric/FACES): 8 - Related Data Allergies Allergy/AdvReac Type Severity Reaction Status Date / Time codeine Allergy Rash Verified 09/24/19 11:39 morphine AdvReac Mild Nausea and Verified 09/24/19 11:39 Vomiting latex Allergy Intermediate Blisters Uncoded 09/24/19 11:39 Home Meds: Home Meds Levothyroxine 50 mcg PO DAILY 12/24/13 [History] Pramipexole Di-HCl [Mirapex] 1 mg PO DAILY 06/25/14 [History] Insulin Aspart [Novolog Flexpen] 1 dose SQ ASDIRECTED 09/15/17 [History] Buprenorphine HCl/Naloxone HCl [Suboxone 4 mg-1 mg Sl Film] 8.2 mg PO TID [History] Spironolactone [Aldactone] 25 mg PO DAILY 03/21/18 [History] Insulin Detemir [Levemir] 50 unit SQ BID 05/09/18 [History] ALPRAZolam [Xanax] 1 mg PO BID PRN 09/24/19 [History] Cariprazine Hydrochloride [Vraylar] 1 mg PO DAILY 09/24/19 [History] Doxycycline [Vibramycin] 100 mg PO BID #20 tab 09/24/19 [Rx] Estradiol [Estrace] 1.5 mg PO DAILY 09/24/19 [History] Past Medical History HEENT History: Reports: Impaired Vision Other HEENT History: wears eyeglasses Cardiovascular History: Reports: Hypertension Respiratory History: Reports: Bronchitis, Recurrent, Pneumonia, Recurrent Gastrointestinal History: Reports: Cirrhosis, GERD, Hepatitis 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: Musculoskeletal History: Reports: Other (See Below) Other Musculoskeletal History: Scoliosis Neurological History: Reports: Migraines Psychiatric History: Reports: Addiction, Anxiety, Bipolar, Depression Endocrine/Metabolic History: Reports: Diabetes, Type I, Hypothyroidism Hematologic History: Reports: Anemia Oncologic (Cancer) History: Reports: Cervix, Thyroid Dermatologic History: Reports: Psoriasis - Infectious Disease History Infectious Disease History: Reports: Chicken Pox, Hepatitis C, Influenza, Shingles - Past Surgical History HEENT Surgical History: Reports: Adenoidectomy, Tonsillectomy Female Surgical History: Reports: Hysterectomy, Tubal Ligation Endocrine Surgical History: Reports: Thyroidectomy Other Endocrine Surgeries/Procedures: partial thyroidectomy Social & Family History - Family History Family Medical History: Noncontributory - Tobacco Use Smoking Status *Q: Current Every Day Smoker Years of Tobacco use: 25 Packs/Tins Daily: 0.5 - Caffeine Use Caffeine Use: Reports: Coffee, Soda - Recreational Drug Use Recreational Drug Use: Yes Drug Use in Last 12 Months: No - Living Situation & Occupation Living situation: Reports: (), with Family (Son) Occupation: Disabled ED ROS GENERAL - Review of Systems Review Of Systems: See Below Constitutional: Denies: Fever, Chills Respiratory: Denies: Shortness of Breath Cardiovascular: Denies: Chest Pain GI/Abdominal: Denies: Diarrhea, Nausea, Vomiting Musculoskeletal: Reports: Arm Pain (R forearm around the erythematous area) Skin: Reports: Erythema (R forearm), Wound (small punctate lesion in middle of wound) Neurological: Denies: Numbness, Tingling ED EXAM, ANIMAL BITE - Physical Exam Exam: See Below Exam Limited By: No Limitations General Appearance: Alert, WD/WN, No Apparent Distress Eye Exam: Bilateral Eye: Normal Inspection Ears: Normal External Exam Nose: Normal Inspection Throat/Mouth: Normal Inspection, Normal Lips, Normal Teeth, Normal Gums, Normal Oropharynx, Normal Voice, No Airway Compromise Head: Atraumatic, Normocephalic Neck: Normal Inspection Respiratory/Chest: No Respiratory Distress, Lungs Clear, Normal Breath Sounds, No Accessory Muscle Use, Chest Non-Tender Cardiovascular: Normal Peripheral Pulses, Regular Rate, Rhythm, No Edema, No Murmur Peripheral Pulses: 3+: Radial (L), Radial (R) GI/Abdominal: Normal Bowel Sounds, Soft, Non-Tender, No Distention, No Mass Extremities: Normal Inspection (except for area on R forearm), Normal Range of Motion, Normal Capillary Refill Neurological: Alert, Oriented, Normal Cognition, No Motor/Sensory Deficits Psychiatric: Normal Affect, Normal Mood Skin Exam: Normal Color, Warm/Dry, Other (Area on mid right forearm, this area has a small punctate lesion in the center, with surrounding erythema. Area is tender, and does feel mildly swollen. Patient still able to move hand in all range of motion as well as fingers. The lesion itself looks to be either some sort of injection miya, although there is no foreign body suspected within the lesion.) Course - Vital Signs Last Recorded V/S: Last Vital Signs Temp 98.0 F 09/24/19 11:35 Pulse 107 H 09/24/19 11:35 Resp 16 09/24/19 11:35 BP 124/90 09/24/19 11:35 Pulse Ox 96 09/24/19 11:35 - Orders/Labs/Meds Meds: Medications Discontinued Medications Generic Name Dose Route Start Last Admin Trade Name Freq PRN Reason Stop Dose Admin Ceftriaxone Sodium 1 gm 09/24/19 11:53 Rocephin IM 09/24/19 11:54 ONETIME ONE Lidocaine HCl 10 ml 09/24/19 11:53 Xylocaine 2% Jelly MUCMEM 09/24/19 11:54 ONETIME ONE - Re-Assessments/Exams Free Text/Narrative Re-Assessment/Exam: 09/24/19 12:01 Patient presents to the ED for the evaluation of suspected bug bite. There is obvious cellulitis around this area. Patient will be given a IM injection of 1 g Rocephin in the ED, and her antibiotics will be changed to doxycycline to help provide MRSA coverage. Departure - Departure Time of Disposition: 12:01 Disposition: Home, Self-Care 01 Condition: Fair Clinical Impression: Cellulitis Qualifiers: Site of cellulitis: extremity Site of cellulitis of extremity: upper extremity Laterality: right Qualified Code(s): L03.113 - Cellulitis of right upper limb - Discharge Information *PRESCRIPTION DRUG MONITORING PROGRAM REVIEWED*: No *COPY OF PRESCRIPTION DRUG MONITORING REPORT IN PATIENT ROSA ISELA: No Prescriptions: Doxycycline [Vibramycin] 100 mg PO BID #20 tab Instructions: Cellulitis, Adult, [id number] Referrals: Chris Kaplan MD [Primary Care Provider] - Additional Instructions: You were evaluated in the ED today regarding a wound on your right forearm. This does appear to have a cellulitis, or skin infection around the area. The area will be marked again with a skin marker, if the redness should extend to finger widths past this area, recommend that you seek care for reevaluation. You were given a 1 g dose of Rocephin in the ER for initial management, and your antibiotics have been changed to doxycycline 1 tab twice daily for the next 10 days. You may use hot packs to the area, to help bring the infection to the surface, if this is painful, you may also try ice packs to help reduce the swelling. You may also use 600 mg ibuprofen every 6 hours for further pain relief. Please note that the antibiotics can take 24 to 48 hours to take effect. Please return to the ER at any time however if your symptoms change or worsen. Sepsis Event Note - Evaluation Sepsis Screening Result: No Definite Risk - Focused Exam Vital Signs: Vital Signs Temp Pulse Resp BP Pulse Ox 09/24/19 11:35 98.0 F 107 H 16 124/90 96 Date Exam was Performed: 09/24/19 Time Exam was Performed: 11:55
[2019-09-24] MEDS ORDERED: Lidocaine 1% PF 2 ML SDV INJECT ONE (12:07)
== END 2019-09-24 12:40 | disposition home or self-care (01) ==
LOC: JD.ED 11:25
DX: L03.113 Cellulitis of right upper limb (principal); E10.9 Type 1 diabetes mellitus without complications; E03.9 Hypothyroidism, unspecified; F41.9 Anxiety disorder, unspecified; F17.210 Nicotine dependence, cigarettes, uncomplicated; Z79.899 Other long term (current) drug therapy; Z98.890 Other specified postprocedural states; Z98.51 Tubal ligation status; Z90.710 Acquired absence of both cervix and uterus; Z88.5 Allergy status to narcotic agent; Z91.040 Latex allergy status
CPT/HCPCS: 96372; 99283; J0696; J2001

== ENCOUNTER 2019-10-22 11:21 | Emergency (ER) | payer MEDICAID ==
[2019-10-22 11:38] VITALS: BP 130/101; PULSE 114
--- NOTE | 2019-10-22 11:45 | EDM.PDOC ---
ED HPI GENERAL MEDICAL PROBLEM - General Chief Complaint: Skin Complaint Stated Complaint: SUSPECTS MRSA IN GENITALS Time Seen by Provider: 10/22/19 11:40 Source of Information: Reports: Patient, RN Notes Reviewed History Limitations: Reports: No Limitations - History of Present Illness INITIAL COMMENTS - FREE TEXT/NARRATIVE: Patient is a 39-year-old female who presents to the ED for evaluation of a red painful lump on her vagina. Patient notes that this has been present for about 1 week now, but it is getting bigger in size. It is roughly the size of a golf ball, and hard to the touch also tender. There is associated redness surrounding it as well. Patient notes that she had an area like this on her right forearm, she had that lanced and cultured. She states that she was given doxycycline for management, but was told after she started it to not take the antibiotic by a surgeon. She does not remember having ever been told she has MRSA. But she has not been told she does not have MRSA. She states that she is not sexually active and does not think this could be any sort of sexually transmitted infection. She does not remember having a fevers or chills, no vaginal discharge, no dysuria, urinary frequency or urgency, she further denies any nausea or vomiting or diarrhea. She states she has a little bit abdominal tenderness above the area. Vaginal Pain Score (Numeric/FACES): 9 - Related Data Allergies Allergy/AdvReac Type Severity Reaction Status Date / Time codeine Allergy Rash Verified 10/22/19 11:37 morphine AdvReac Mild Nausea and Verified 10/22/19 11:37 Vomiting latex Allergy Intermediate Blisters Uncoded 10/22/19 11:37 Home Meds: Home Meds Levothyroxine 50 mcg PO DAILY 12/24/13 [History] Pramipexole Di-HCl [Mirapex] 1 mg PO DAILY 06/25/14 [History] Insulin Aspart [Novolog Flexpen] 1 dose SQ ASDIRECTED 09/15/17 [History] Buprenorphine HCl/Naloxone HCl [Suboxone 4 mg-1 mg Sl Film] 8.2 mg PO TID [History] Spironolactone [Aldactone] 25 mg PO DAILY 03/21/18 [History] Insulin Detemir [Levemir] 50 unit SQ BID 05/09/18 [History] ALPRAZolam [Xanax] 1 mg PO BID PRN 09/24/19 [History] Cariprazine Hydrochloride [Vraylar] 1 mg PO DAILY 09/24/19 [History] Estradiol [Estrace] 1.5 mg PO DAILY 09/24/19 [History] Doxycycline [Vibramycin] 100 mg PO BID #14 tab 10/22/19 [Rx] Past Medical History HEENT History: Reports: Impaired Vision Other HEENT History: wears eyeglasses Cardiovascular History: Reports: Hypertension Respiratory History: Reports: Bronchitis, Recurrent, Pneumonia, Recurrent Gastrointestinal History: Reports: Cirrhosis, GERD, Hepatitis FRUIT COORDINATOR History: Reports: Other FRUIT COORDINATOR 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 Musculoskeletal History: Reports: Other (See Below) Other Musculoskeletal History: Scoliosis Neurological History: Reports: Migraines Psychiatric History: Reports: Addiction, Anxiety, Bipolar, Depression Endocrine/Metabolic History: Reports: Diabetes, Type I, Hypothyroidism Hematologic History: Reports: Anemia Oncologic (Cancer) History: Reports: Cervix, Thyroid Dermatologic History: Reports: Psoriasis - Infectious Disease History Infectious Disease History: Reports: Chicken Pox, Hepatitis C, Influenza, MRSA, Shingles - Past Surgical History HEENT Surgical History: Reports: Adenoidectomy, Tonsillectomy Female Surgical History: Reports: Hysterectomy, Tubal Ligation Endocrine Surgical History: Reports: Thyroidectomy Other Endocrine Surgeries/Procedures: partial thyroidectomy Social & Family History - Family History Family Medical History: Noncontributory - Tobacco Use Smoking Status *Q: Current Every Day Smoker Years of Tobacco use: 23 Packs/Tins Daily: 0.5 - Caffeine Use Caffeine Use: Reports: Soda, Tea - Recreational Drug Use Recreational Drug Use: No - Living Situation & Occupation Living situation: Reports: (), with Family (Son) Occupation: Disabled ED ROS GENERAL - Review of Systems Review Of Systems: See Below Constitutional: Denies: Fever, Chills Respiratory: Denies: Shortness of Breath Cardiovascular: Denies: Chest Pain GI/Abdominal: Reports: Abdominal Pain (suprapubic tenderness near mons pubis and erythematous area.) : Denies: Discharge, Dysuria, Frequency, Urgency Skin: Reports: Erythema (Mons pubis) ED EXAM, SKIN/RASH Exam: See Below Exam Limited By: No Limitations General Appearance: Alert, WD/WN, No Apparent Distress Throat/Mouth: Normal Inspection, Normal Lips, Normal Teeth, Normal Gums, Normal Oropharynx, Normal Voice, No Airway Compromise Head: Atraumatic, Normocephalic Respiratory/Chest: No Respiratory Distress, Lungs Clear, Normal Breath Sounds, No Accessory Muscle Use, Chest Non-Tender Cardiovascular: Normal Peripheral Pulses, Regular Rate, Rhythm, No Murmur Peripheral Pulses: 3+: Radial (L), Radial (R) GI/Abdominal: Normal Bowel Sounds, Soft, No Distention, No Mass, Tender ( suprapubic tenderness on mons pubis, slightly R from midline, this is over the area of concern.) Extremities: Normal Inspection, Normal Capillary Refill Neurological: Alert, Oriented, Normal Cognition, No Motor/Sensory Deficits Psychiatric: Normal Affect, Normal Mood Skin: Warm, Dry, Intact, No Rash, Erythema (on mons pubis, slightly Rightward from midline. There is about a golfball size area that is very tender to touch, no active fluctuance noted, but patient did not tolerate palpation of the area very well. The lesion does have an area that is oozing some blood tinged fluid, the patient noted this developed this morning.) ED SKIN PROCEDURES - I&D Site: Right medial Mons Pubis Skin Prep: Chlorhexidine (Hibiciens) Local Anesthesia: Lidocaine: 1% Plain Local Anesthetic Volume: 5cc Area Incised With: 15 Blade Drainage: Purulent, Bloody, Large Amount Probed to Break Up Loculations: Yes Packed With: 1/4 in. Iodoform Sterile Dressing: Adhesive Dressing Complications: No Course - Vital Signs Last Recorded V/S: Last Vital Signs Temp 97.8 F 10/22/19 11:28 Pulse 114 H 10/22/19 11:28 Resp 16 10/22/19 11:28 BP 130/101 H 10/22/19 11:28 Pulse Ox 95 10/22/19 11:28 - Orders/Labs/Meds Labs: Laboratory Tests 10/22/19 Range/Units 12:35 MRSA (PCR) Positive H Meds: Medications Discontinued Medications Generic Name Dose Route Start Last Admin Trade Name Freq PRN Reason Stop Dose Admin Ketorolac Tromethamine 60 mg 10/22/19 11:53 10/22/19 12:25 Toradol IM 10/22/19 11:54 60 mg ONETIME ONE Administration Lidocaine HCl 10 ml 10/22/19 11:53 10/22/19 12:26 Xylocaine 1% INJECT 10/22/19 11:54 10 ml ONETIME ONE Administration - Re-Assessments/Exams Free Text/Narrative Re-Assessment/Exam: 10/22/19 12:02 Patient presents to the ED for evaluation of a red swollen area to her mons pubis. This area will need to be lanced and drained, she will likely benefit from being put on some antibiotics post drainage. Departure - Departure Time of Disposition: 12:45 Disposition: Home, Self-Care 01 Condition: Fair Clinical Impression: Cellulitis and abscess of unspecified site - Discharge Information *PRESCRIPTION DRUG MONITORING PROGRAM REVIEWED*: No *COPY OF PRESCRIPTION DRUG MONITORING REPORT IN PATIENT ROSA ISELA: No Prescriptions: Doxycycline [Vibramycin] 100 mg PO BID #14 tab Instructions: Skin Abscess, [id number] Referrals: Chris Kaplan MD [Primary Care Provider] - Forms: ED Department Discharge Additional Instructions: You were evaluated in the ER today regarding a suspected skin infection. It does appear that you have a cellulitis. Your skin was marked around the borders of the redness, if this redness should extend 2 finger widths past this initial miya, recommend you seek care for re-evaluation. Your wound was packed with a gauze dressing, this should stay in place for around 72 hours, this helps allow the infection to drain from inside the wound created today. You were given a antibiotic, Doxycycline please take as prescribed until the course is done or told otherwise by different provider. Please note that this antibiotic will take at least 48 hours to start working appropriately. You may try to use heat/ice packs to the area to help reduce pain/swelling. You may take 500 mg Tylenol or 600 mg ibuprofen every 6 hours as needed for further pain relief. Do not exceed 4000 mg Tylenol or 3200 mg ibuprofen in a 24 -hour time span. Please return to the ER at any time if your symptoms change or worsen. Sepsis Event Note - Evaluation Sepsis Screening Result: No Definite Risk - Focused Exam Vital Signs: Vital Signs Temp Pulse Resp BP Pulse Ox 10/22/19 11:28 97.8 F 114 H 16 130/101 H 95 Date Exam was Performed: 10/22/19 Time Exam was Performed: 21:47
[2019-10-22] MEDS ORDERED: Lidocaine 1% 10 ML MDV INJECT ONE (11:53)
[2019-10-22] MEDS ORDERED: Ketorolac 60 MG/2 ML SDV IM ONE (11:53)
== END 2019-10-22 13:05 | disposition home or self-care (01) ==
LOC: JD.ED 11:21
DX: N76.0 Acute vaginitis (principal); N76.2 Acute vulvitis; I10 Essential (primary) hypertension; K21.9 Gastro-esophageal reflux disease without esophagitis; F31.9 Bipolar disorder, unspecified; M41.9 Scoliosis, unspecified; E10.9 Type 1 diabetes mellitus without complications; E03.9 Hypothyroidism, unspecified; F17.210 Nicotine dependence, cigarettes, uncomplicated; Z88.5 Allergy status to narcotic agent; Z79.899 Other long term (current) drug therapy; Z91.040 Latex allergy status
CPT/HCPCS: 56405; 87641; 96372; 99283; J1885; J2001; 10061

== ENCOUNTER 2019-10-24 11:30 | Emergency (ER) | payer MEDICAID ==
[2019-10-24 11:53] VITALS: BP 120/101; PULSE 83
[2019-10-24] MEDS ORDERED: HYDROmorphone 1 MG/ML Syringe IM ONE (12:04)
--- NOTE | 2019-10-24 12:10 | EDM.PDOC ---
ED HPI GENERAL MEDICAL PROBLEM - General Chief Complaint: Skin Complaint Stated Complaint: GENITAL MRSA NOT BETTER Time Seen by Provider: 10/24/19 11:43 Source of Information: Reports: Patient, RN Notes Reviewed History Limitations: Reports: No Limitations - History of Present Illness INITIAL COMMENTS - FREE TEXT/NARRATIVE: Patient is a 39-year-old female who presents to the ED for evaluation of a skin abscess in her genital area. Patient was evaluated by myself this last Friday, 2 days ago, and had this area lanced for drainage. The area itself was around golf ball size, and still remains about golf ball size. I was able to express a little bit of fluid at Friday's visit, however the patient did not tolerate the procedure very well. The area was packed with a gauze dressing, and she has kept this in place, she states that the drainage has lessened, but it is malodorous. Patient is complaining of increased pain, and would like it re- evaluated to make sure that everything is okay. She states that she is having pain that shoots up into her abdomen. She states that she has been taking 600 mg ibuprofen as directed and this is not been providing much help. She is MRSA positive as well. She was sent home with doxycycline for a surrounding cellulitis. Pelvic Pain Score (Numeric/FACES): 9 - Related Data Allergies Allergy/AdvReac Type Severity Reaction Status Date / Time codeine Allergy Rash Verified 10/22/19 11:37 morphine AdvReac Mild Nausea and Verified 10/22/19 11:37 Vomiting latex Allergy Intermediate Blisters Uncoded 10/22/19 11:37 Home Meds: Home Meds Levothyroxine 50 mcg PO DAILY 12/24/13 [History] Pramipexole Di-HCl [Mirapex] 1 mg PO DAILY 06/25/14 [History] Insulin Aspart [Novolog Flexpen] 1 dose SQ ASDIRECTED 09/15/17 [History] Buprenorphine HCl/Naloxone HCl [Suboxone 4 mg-1 mg Sl Film] 8.2 mg PO TID [History] Spironolactone [Aldactone] 25 mg PO DAILY 03/21/18 [History] Insulin Detemir [Levemir] 50 unit SQ BID 05/09/18 [History] ALPRAZolam [Xanax] 1 mg PO BID PRN 09/24/19 [History] Cariprazine Hydrochloride [Vraylar] 1 mg PO DAILY 09/24/19 [History] Estradiol [Estrace] 1.5 mg PO DAILY 09/24/19 [History] Doxycycline [Vibramycin] 100 mg PO BID #14 tab 10/22/19 [Rx] Past Medical History HEENT History: Reports: Impaired Vision Other HEENT History: wears eyeglasses Cardiovascular History: Reports: Hypertension Respiratory History: Reports: Bronchitis, Recurrent, Pneumonia, Recurrent Gastrointestinal History: Reports: Cirrhosis, GERD, Hepatitis LAUNCH CHECK OUT History: Reports: Other LAUNCH CHECK OUT 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 Musculoskeletal History: Reports: Other (See Below) Other Musculoskeletal History: Scoliosis Neurological History: Reports: Migraines Psychiatric History: Reports: Addiction, Anxiety, Bipolar, Depression Endocrine/Metabolic History: Reports: Diabetes, Type I, Hypothyroidism Hematologic History: Reports: Anemia Oncologic (Cancer) History: Reports: Cervix, Thyroid Dermatologic History: Reports: Psoriasis - Infectious Disease History Infectious Disease History: Reports: Chicken Pox, Hepatitis C, Influenza, MRSA, Shingles - Past Surgical History HEENT Surgical History: Reports: Adenoidectomy, Tonsillectomy Female Surgical History: Reports: Hysterectomy, Tubal Ligation Endocrine Surgical History: Reports: Thyroidectomy Other Endocrine Surgeries/Procedures: partial thyroidectomy Social & Family History - Family History Family Medical History: Noncontributory - Tobacco Use Smoking Status *Q: Current Every Day Smoker Years of Tobacco use: 27 Packs/Tins Daily: 0.7 - Caffeine Use Caffeine Use: Reports: Coffee, Soda, Tea - Recreational Drug Use Recreational Drug Use: No - Living Situation & Occupation Living situation: Reports: (), with Family (Son) Occupation: Disabled ED ROS GENERAL - Review of Systems Review Of Systems: See Below Constitutional: Denies: Fever, Chills Respiratory: Denies: Shortness of Breath Cardiovascular: Denies: Chest Pain GI/Abdominal: Reports: Abdominal Pain (low R pelvic/abdomen). Denies: Nausea, Vomiting : Reports: Pain (abscess on R mons pubis). Denies: Dysuria, Frequency, Urgency Skin: Reports: Other (golf ball size abscess on R mons pubis). Denies: Erythema ED EXAM, SKIN/RASH Exam: See Below Exam Limited By: No Limitations General Appearance: Alert, WD/WN, Anxious Ears: Normal External Exam Nose: Normal Inspection Throat/Mouth: Normal Inspection, Normal Lips, Normal Teeth, Normal Gums, Normal Oropharynx, Normal Voice, No Airway Compromise Head: Atraumatic, Normocephalic Neck: Normal Inspection Respiratory/Chest: No Respiratory Distress, Lungs Clear, Normal Breath Sounds, No Accessory Muscle Use, Chest Non-Tender Cardiovascular: Normal Peripheral Pulses, Regular Rate, Rhythm, No Murmur GI/Abdominal: Normal Bowel Sounds, Soft, Non-Tender, No Distention, No Mass Extremities: Normal Inspection, Normal Capillary Refill Neurological: Alert, Oriented, Normal Cognition, No Motor/Sensory Deficits Psychiatric: Normal Affect, Normal Mood Skin: Warm, Dry, Normal Color, No Rash, Wound/Incision (1.5 cm surgical wound to the right mons pubis, there was some gauze packing in place, this is bloodsoaked, patient was still having some bloody drainage at this time. The area of abscess is still around golf ball size. She notes that this is where most of her pain is.) Course - Vital Signs Last Recorded V/S: Last Vital Signs Temp 98.1 F 10/24/19 11:50 Pulse 83 10/24/19 11:50 Resp 20 10/24/19 11:50 BP 120/101 H 10/24/19 11:50 Pulse Ox 94 L 10/24/19 11:50 - Orders/Labs/Meds Orders: Active Orders 24 hr Category Date Time Status Notify Provider Consults [RC] ASDIRECTED Care 10/24/19 13:28 Active Consult to Physician [CONS] Stat Cons 10/24/19 13:28 Active Meds: Medications Discontinued Medications Generic Name Dose Route Start Last Admin Trade Name Paulq PRN Reason Stop Dose Admin Hydromorphone HCl 1 mg 10/24/19 12:04 10/24/19 12:14 Dilaudid IM 10/24/19 12:05 1 mg ONETIME ONE Administration - Re-Assessments/Exams Free Text/Narrative Re-Assessment/Exam: 10/24/19 12:12 Patient presents to the ED for the evaluation of ongoing pain due to an abscess on her right mons pubis. The gauze was taking out of the area that was lanced, upon visualization of the area, I do not believe that I was able to get deep enough to the affected area, as the patient did not tolerate the procedure very well on Friday. I did discuss with her the possibility of needing re-lanced, and she was somewhat hesitant, she states she does not like those procedures. I did give her 1 mg of Dilaudid for initial pain management. Again I do believe that the area would benefit from another incision and drainage, as I believe I need to go a little bit deeper than what I had originally gone. If the patient declines the I&D, I will try to repack the area so it stays open and drains, again she is on doxycycline so this should help provide coverage, I may need to extend her course however if she declines I&D at that today's visit. 10/24/19 12:58 Patient did receive some pain relief from the Dilaudid given today. I did talk with the patient regarding the recommended I&D. Due to the abscess being may be somewhat deeper than I feel comfortable lancing, I did call Dr. Lott, our general surgeon substance addiction coordinator for possible clinic follow-up early this week for further incision and drainage, he states that he will come to the ER to evaluate the patient for further management at this time. Departure - Departure Time of Disposition: 13:30 Disposition: Home, Self-Care 01 Condition: Fair Clinical Impression: Abscess - Discharge Information *PRESCRIPTION DRUG MONITORING PROGRAM REVIEWED*: Yes *COPY OF PRESCRIPTION DRUG MONITORING REPORT IN PATIENT ROSA ISELA: No Instructions: Incision and Drainage, Care After, Skin Abscess, [id number] Referrals: Chris Kaplan MD [Primary Care Provider] - Forms: ED Department Discharge Additional Instructions: You were evaluated in the ER again today for your skin abscess. You were given some pain medication this did relieve some of your pain. You were also re-evaluated by our general surgeon for possible deeper incision and drainage, he did not deem this appropriate at today's setting. He would like you to follow-up with him in clinic this coming Friday. You were given a prescription for a strong pain medication, oxycodone/ acetaminophen, 5/325, please take 1 tab every 6 hours as needed for pain not relieved by Tylenol or ibuprofen alone. Please note this medication does contain Tylenol in it, so do not take more than 4000 mg in a 24-hour time span. These medications can be addictive, so please take as few as possible to achieve adequate pain control. These meds can also be quite constipating, recommend that you increase your oral fluid intake and take a stool softener like MiraLAX while taking these medications. Do not drive while taking this medication. As always please continue to monitor the area for continued redness, and continue to take the doxycycline as previously prescribed until gone. Please return to the ER at any time if your symptoms change or worsen. Sepsis Event Note - Evaluation Sepsis Screening Result: No Definite Risk - Focused Exam Vital Signs: Vital Signs Temp Pulse Resp BP Pulse Ox 10/24/19 11:50 98.1 F 83 20 120/101 H 94 L Date Exam was Performed: 10/24/19 Time Exam was Performed: 13:29 - My Orders Last 24 Hours: My Active Orders 10/24/19 13:28 Notify Provider Consults [RC] ASDIRECTED Consult to Physician [CONS] Stat - Assessment/Plan Last 24 Hours: My Active Orders 10/24/19 13:28 Notify Provider Consults [RC] ASDIRECTED Consult to Physician [CONS] Stat
--- NOTE | 2019-10-24 13:25 | PCM.CONS ---
H&P History of Present Illness - General Date of Service: 10/24/19 Admit Problem/Dx: abscess Source of Information: Patient History Limitations: Reports: No Limitations - History of Present Illness Onset of Symptoms: Reports: Gradual Duration of Symptoms: Reports: Week(s): Location: Reports: Pelvis Quality: Reports: Burning, Throbbing Severity: Severe Other HPI/Comments: Ms. 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 This was lanced in the emergency room here two days ago, and the patient presents again today due to little symptomatic relief. The packing that was placed two days ago was removed in the ER today. She had not received narcotics for pain control, but received an IV dose of dilaudid on arrival today. The wound has continued drainage, and the extent of cellulitis and erythema has reportedly improved since drainage and start of a course of doxycycline. Pelvic Pain Score (Numeric/FACES): 9 - Related Data Allergies/Adverse Reactions: Allergies Allergy/AdvReac Type Severity Reaction Status Date / Time codeine Allergy Rash Verified 10/22/19 11:37 morphine AdvReac Mild Nausea and Verified 10/22/19 11:37 Vomiting latex Allergy Intermediate Blisters Uncoded 10/22/19 11:37 Home Medications: Home Meds Levothyroxine 50 mcg PO DAILY 12/24/13 [History] Pramipexole Di-HCl [Mirapex] 1 mg PO DAILY 06/25/14 [History] Insulin Aspart [Novolog Flexpen] 1 dose SQ ASDIRECTED 09/15/17 [History] Buprenorphine HCl/Naloxone HCl [Suboxone 4 mg-1 mg Sl Film] 8.2 mg PO TID [History] Spironolactone [Aldactone] 25 mg PO DAILY 03/21/18 [History] Insulin Detemir [Levemir] 50 unit SQ BID 05/09/18 [History] ALPRAZolam [Xanax] 1 mg PO BID PRN 09/24/19 [History] Cariprazine Hydrochloride [Vraylar] 1 mg PO DAILY 09/24/19 [History] Estradiol [Estrace] 1.5 mg PO DAILY 09/24/19 [History] Doxycycline [Vibramycin] 100 mg PO BID #14 tab 10/22/19 [Rx] Past Medical History HEENT History: Reports: Impaired Vision Other HEENT History: wears eyeglasses Cardiovascular History: Reports: Hypertension Respiratory History: Reports: Bronchitis, Recurrent, Pneumonia, Recurrent Gastrointestinal History: Reports: Cirrhosis, GERD, Hepatitis 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 OB/BYN 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 Musculoskeletal History: Reports: Other (See Below) Other Musculoskeletal History: Scoliosis Neurological History: Reports: Migraines Psychiatric History: Reports: Addiction, Anxiety, Bipolar, Depression Endocrine/Metabolic History: Reports: Diabetes, Type I, Hypothyroidism Hematologic History: Reports: Anemia Oncologic (Cancer) History: Reports: Cervix, Thyroid Dermatologic History: Reports: Psoriasis - Infectious Disease History Infectious Disease History: Reports: Chicken Pox, Hepatitis C, Influenza, MRSA, Shingles - Past Surgical History HEENT Surgical History: Reports: Adenoidectomy, Tonsillectomy Female Surgical History: Reports: Hysterectomy, Tubal Ligation Endocrine Surgical History: Reports: Thyroidectomy Other Endocrine Surgeries/Procedures: partial thyroidectomy Social & Family History - Family History Family Medical History: Noncontributory - Tobacco Use Smoking Status *Q: Current Every Day Smoker Years of Tobacco use: 27 Packs/Tins Daily: 0.7 - Caffeine Use Caffeine Use: Reports: Coffee, Soda, Tea - Recreational Drug Use Recreational Drug Use: No - Living Situation & Occupation Living situation: Reports: (), with Family (Son) Occupation: Disabled H&P Review of Systems - Review of Systems: Review Of Systems: See Below General: Reports: No Symptoms HEENT: Reports: No Symptoms Cardiovascular: Reports: No Symptoms Gastrointestinal: Reports: No Symptoms Genitourinary: Reports: Pain Skin: Reports: Erythema, Wound, Lumps Psychiatric: Reports: No Symptoms Neurological: Reports: No Symptoms Exam - Exam Exam: See Below - Vital Signs Vital Signs: Last Vital Signs Temp 36.7 C 10/24/19 11:50 Pulse 83 10/24/19 11:50 Resp 20 10/24/19 11:50 BP 120/101 H 10/24/19 11:50 Pulse Ox 94 L 10/24/19 11:50 Weight: 81.193 kg - Exam General: Alert, Oriented, Cooperative Lungs: Normal Respiratory Effort Cardiovascular: Regular Rate (Female) Exam: Other (normal external appearance. Area of tenderness, erythema and induration surrounding 1 x 2 cm open wound. No fluctuance appreciated. ) Rectal (Female) Exam: Deferred Skin: Warm, Dry Neuro Extensive - Mental Status: Alert, Oriented x3 Sepsis Event Note - Evaluation Sepsis Screening Result: No Definite Risk - Focused Exam Vital Signs: Vital Signs Temp Pulse Resp BP Pulse Ox 10/24/19 11:50 36.7 C 83 20 120/101 H 94 L Date Exam was Performed: 10/24/19 Time Exam was Performed: 13:20 Consult PN Assessment/Plan Procedures: Procedures AGENT NOS ASSAY W/OPTIC (07/24/14) ASSAY GLUCOSE BLOOD QUANT (05/09/18) ASSAY OF AMMONIA (10/04/15) ASSAY OF AMYLASE (03/18/15) ASSAY OF BLOOD OSMOLALITY (06/13/16) ASSAY OF LIPASE (05/22/19) ASSAY OF MAGNESIUM (12/25/13) ASSAY OF PHOSPHORUS (12/25/13) ASSAY OF TROPONIN QUANT (08/08/17) ASSAY THYROID STIM HORMONE (10/06/14) BL SMEAR W/DIFF WBC COUNT (05/22/19) BLOOD GASES ANY COMBINATION (05/09/18) C DIFF AMPLIFIED PROBE (07/24/14) C-REACTIVE PROTEIN (05/22/19) CHEST X-RAY 1 VIEW FRONTAL (08/08/17) CHEST X-RAY 2VW FRONTAL&LATL (12/16/16) CHORIONIC GONADOTROPIN ASSAY (11/07/15) CHYLMD TRACH DNA AMP PROBE (01/20/18) COMPLETE CBC AUTOMATED (05/22/19) COMPLETE CBC W/AUTO DIFF WBC (01/20/18) COMPREHEN METABOLIC PANEL (05/22/19) CT ABD & PELV W/CONTRAST (05/24/16) CT ABD & PELVIS W/O CONTRAST (05/22/19) CT HEAD/BRAIN W/O DYE (03/25/14) CULTURE AEROBIC IDENTIFY (12/25/13) DETECT AGNT MULT DNA AMPLI (03/21/18) ECHO EXAM OF ABDOMEN (03/18/15) ELECTROCARDIOGRAM TRACING (08/08/17) EMERGENCY DEPT VISIT (09/24/19) EMERGENCY DEPT VISIT (05/22/19) EMERGENCY DEPT VISIT (11/01/18) EMERGENCY DEPT VISIT (05/09/18) EMERGENCY DEPT VISIT (03/21/18) EMERGENCY DEPT VISIT (12/21/17) EMERGENCY DEPT VISIT (09/15/17) EMERGENCY DEPT VISIT (08/08/17) EMERGENCY DEPT VISIT (06/13/16) EMERGENCY DEPT VISIT (01/07/16) EMERGENCY DEPT VISIT (11/07/15) EMERGENCY DEPT VISIT (07/31/15) EMERGENCY DEPT VISIT (03/18/15) EMERGENCY DEPT VISIT (01/26/15) EMERGENCY DEPT VISIT (01/24/15) EMERGENCY DEPT VISIT (12/12/14) EMERGENCY DEPT VISIT (12/02/14) EMERGENCY DEPT VISIT (10/24/14) EMERGENCY DEPT VISIT (10/06/14) EMERGENCY DEPT VISIT (07/21/14) EMERGENCY DEPT VISIT (06/25/14) EMERGENCY DEPT VISIT (06/15/14) EMERGENCY DEPT VISIT (03/25/14) EMERGENCY DEPT VISIT (03/23/14) EMERGENCY DEPT VISIT (12/25/13) FIBRIN DEGRADATION QUANT (12/21/17) GLUCOSE BLOOD TEST (05/09/18) GLYCOSYLATED HEMOGLOBIN TEST (10/04/15) HELICOBACTER PYLORI ANTIBODY (08/08/17) HEPATIC FUNCTION PANEL (12/25/13) HYDRATE IV INFUSION ADD-ON (05/22/19) METABOLIC PANEL TOTAL CA (12/25/13) MICROBE SUSCEPTIBLE YUNIOR (12/25/13) MRI JOINT UPR EXTREM W/O DYE (07/12/14) N.GONORRHOEAE DNA AMP PROB (01/20/18) PROTHROMBIN TIME (12/21/17) ROUTINE VENIPUNCTURE (05/22/19) SMEAR WET MOUNT SALINE/INK (03/30/18) STOOL CULTR AEROBIC BACT EA (07/24/14) TEST FOR ACETONE/KETONES (06/13/16) THER/PROPH/DIAG INJ IV PUSH (05/22/19) THER/PROPH/DIAG INJ SC/IM (09/24/19) THROMBOPLASTIN TIME PARTIAL (12/21/17) TRICHOMONAS ASSAY W/OPTIC (03/30/18) TX/PRO/DX INJ NEW DRUG ADDON (05/22/19) TX/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/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 (05/22/19) URINALYSIS AUTO W/SCOPE (05/22/19) URINE BACTERIA CULTURE (12/25/13) URINE CULTURE/COLONY COUNT (11/01/18) URINE TEST (06/13/16) VANOMYCIN DNA AMP PROBE (07/24/14) WITHDRAWAL OF ARTERIAL BLOOD (05/09/18) X-RAY EXAM ABDOMEN 1 VIEW (12/21/17) X-RAY EXAM CHEST 2 VIEWS (12/21/17) X-RAY EXAM L-S SPINE 2/3 VWS (12/16/16) X-RAY EXAM NECK SPINE 2-3 VW (10/24/14) X-RAY EXAM OF ABDOMEN (11/09/15) X-RAY EXAM OF ABDOMEN (10/04/15) X-RAY EXAM OF ABDOMEN (12/02/14) X-RAY EXAM OF SHOULDER (12/16/16) X-RAY EXAM SACRUM TAILBONE (12/16/16) Problem List Initiated/Reviewed/Updated: Yes Plan: I do not appreciate any fluctuance and do not think a bigger incision would reveal any undrained loculation of pus; the patient also has significant comorbidities including poorly controlled diabetes with HgbA1c reportedly >10%, which predisposes her to infection and poor wound healing. I recommend a small supply of oral narcotic analgesics as the patient's cellulitis improves with antibiotic treatment, and she will follow up in the surgery in clinic on Friday to ensure continued healing and symptomatic improvement. Requesting Provider: Carmen Date Consult Requested: 10/24/19 Reason for Consult: abscess Patient History Reviewed: Yes Admission H&P Reviewed: Yes Notified Requestor: Yes
== END 2019-10-24 13:57 | disposition home or self-care (01) ==
LOC: JD.ED 11:30
DX: N76.4 Abscess of vulva (principal); I10 Essential (primary) hypertension; F41.9 Anxiety disorder, unspecified; F31.9 Bipolar disorder, unspecified; E10.9 Type 1 diabetes mellitus without complications; E03.9 Hypothyroidism, unspecified; F17.210 Nicotine dependence, cigarettes, uncomplicated; Z88.5 Allergy status to narcotic agent; Z91.040 Latex allergy status; Z79.4 Long term (current) use of insulin; Z79.899 Other long term (current) drug therapy; Z79.890 Hormone replacement therapy
CPT/HCPCS: 96372; 99283; J1170; 10060

== ENCOUNTER 2019-10-29 10:43 | Observation (INO) | payer MEDICAID ==
[2019-10-29] MEDS ORDERED: Propofol 200 MG/20 ML SDV ONE ×2 (10:56→12:21)
[2019-10-29] MEDS ORDERED: fentaNYL 100 MCG/2 ML SDV ONE (10:56)
[2019-10-29] MEDS ORDERED: Lidocaine 1% 4 ML ONE (10:56)
[2019-10-29] MEDS ORDERED: Midazolam 1 MG/ML 2 ML SDV ONE (10:56)
[2019-10-29] MEDS ORDERED: Metoclopramide 10 MG/2 ML SDV ONE (10:57)
--- NOTE | 2019-10-29 11:03 | PCM.PREANE ---
Preanesthetic Assessment - Procedure Proposed Procedure: I and D mons Abscess - Anesthesia/Transfusion/Family Hx Anesthesia History: Prior Anesthesia Reaction (nausea) Family History of Anesthesia Reaction: No Transfusion History: No Prior Transfusion(s) - Review of Systems General: Fatigue Pulmonary: No Symptoms Cardiovascular: No Symptoms Gastrointestinal: Abdominal Pain, Constipation, Nausea Neurological: Numbness (both fingers and toes), Seizure (2017 brought on from withdrawals) Other: Reports: Easy Bleeding, Easy Bruising, Diabetes, Liver Problems ( cirrhosis stage 4 AND hep C), Thyroid Problems (hypothyroid), Depression - Physical Assessment NPO Status Date: 10/29/19 NPO Status Time: 09:00 Height: 1.68 m Weight: 80.467 kg ASA Class: 2E Mental Status: Alert & Oriented x3 Airway Class: Mallampati = 1 Dentition: Reports: Broken Tooth/Teeth, Missing Tooth/Teeth, Caries Thyro-Mental Finger Breadths: 3 Mouth Opening Finger Breadths: 3 ROM/Head Extension: Full Lungs: Clear to Auscultation, Normal Respiratory Effort Cardiovascular: Regular Rate, Regular Rhythm - Allergies Allergies/Adverse Reactions: Allergies Allergy/AdvReac Type Severity Reaction Status Date / Time codeine Allergy Rash Verified 10/22/19 11:37 morphine AdvReac Mild Nausea and Verified 10/22/19 11:37 Vomiting latex Allergy Intermediate Blisters Uncoded 10/22/19 11:37 - Blood Blood Available: No Product(s) Available: None - Anesthesia Plan Pre-Op Medication Ordered: Antacids (reglan) - Acknowledgements Anesthesia Type Planned: MAC Pt an Appropriate Candidate for the Planned Anesthesia: Yes Alternatives and Risks of Anesthesia Discussed w Pt/Guardian: Yes Pt/Guardian Understands and Agrees with Anesthesia Plan: Yes PreAnesthesia Questionnaire HEENT History: Reports: Impaired Vision Other HEENT History: wears eyeglasses Cardiovascular History: Reports: Hypertension Respiratory History: Reports: Bronchitis, Recurrent, Pneumonia, Recurrent Gastrointestinal History: Reports: Cirrhosis, GERD, Hepatitis 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 OB/BYN 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 Musculoskeletal History: Reports: Other (See Below) Other Musculoskeletal History: Scoliosis Neurological History: Reports: Migraines Psychiatric History: Reports: Addiction, Anxiety, Bipolar, Depression Endocrine/Metabolic History: Reports: Diabetes, Type I, Hypothyroidism Hematologic History: Reports: Anemia Oncologic (Cancer) History: Reports: Cervix, Thyroid Dermatologic History: Reports: Psoriasis - Infectious Disease History Infectious Disease History: Reports: Chicken Pox, Hepatitis C, Influenza, MRSA, Shingles - Past Surgical History HEENT Surgical History: Reports: Adenoidectomy, Tonsillectomy Female Surgical History: Reports: Hysterectomy, Tubal Ligation Endocrine Surgical History: Reports: Thyroidectomy Other Endocrine Surgeries/Procedures: partial thyroidectomy - SUBSTANCE USE Smoking Status *Q: Current Every Day Smoker Tobacco Use Within Last Twelve Months: Cigarettes Second Hand Smoke Exposure: Yes Days Per Week of Alcohol Use: 0 Number of Drinks Per Day: 0 Total Drinks Per Week: 0 Recreational Drug Use History: No - HOME MEDS Home Medications: Home Meds Levothyroxine 50 mcg PO DAILY 12/24/13 [History] Pramipexole Di-HCl [Mirapex] 1 mg PO DAILY 06/25/14 [History] Insulin Aspart [Novolog Flexpen] 1 dose SQ ASDIRECTED 09/15/17 [History] Buprenorphine HCl/Naloxone HCl [Suboxone 4 mg-1 mg Sl Film] 8.2 mg PO TID [History] Spironolactone [Aldactone] 25 mg PO DAILY 03/21/18 [History] Insulin Detemir [Levemir] 50 unit SQ BID 05/09/18 [History] ALPRAZolam [Xanax] 1 mg PO BID PRN 09/24/19 [History] Cariprazine Hydrochloride [Vraylar] 1 mg PO DAILY 09/24/19 [History] Estradiol [Estrace] 1.5 mg PO DAILY 09/24/19 [History] Doxycycline [Vibramycin] 100 mg PO BID #14 tab 10/22/19 [Rx]
[2019-10-29] MEDS ORDERED: Scopolamine 1.5 MG Transdermal Patch TOP ONE (11:05)
[2019-10-29] MEDS ORDERED: Lidocaine 1%/Sod Bicarbonate in NS 8.4% 1 ML Syringe IDERM PRN (11:05)
[2019-10-29] MEDS ORDERED: Sodium Chloride 0.9% 10 ML Syringe FLUSH PRN (11:05)
[2019-10-29] MEDS ORDERED: Lactated Ringers 1,000 ML IV SCH (11:15)
[2019-10-29] MEDS ORDERED: Bupivacaine 0.5%/EPINEPHrine 1:200,000 50 ML MDV ONE (11:40)
[2019-10-29] MEDS ORDERED: ALPRAZolam 1 MG Tab PO PRN (12:31)
[2019-10-29] MEDS ORDERED: fentaNYL 100 MCG/2 ML SDV IVPUSH PRN (12:40)
--- NOTE | 2019-10-29 12:45 | PCM.PRNOTE ---
- Free Text/Narrative Note: Date: 10/29/2019 Operation: wound exploration and debridement Surgeon: Juno Lott MD Assisting: Karen PETERSON Findings: no significant undrained abscess identified. Wound opened wider with cruciate incision and loculations were broken up. The wound was irrigated and backed. 20 cc 0.5% marcaine with epinephrine used for local anesthetic. Detailed Report: The patient was taken to the OR and placed in supine position. Time out was performed and monitored anesthesia care initiated. The groin was prepped and draped in sterile fashion. 20 cc 0.5% marcaine with epinephrine was injected around the wound site for local anesthetic. The open wound was enlarged by making a cruciate incision with the scalpel, and the underlying soft tissue was de-loculated with a hemostat and with digital exploration. Minimal bloody malodorous fluid was drained. Culture swabs were obtained from the deep portion of the wound. The skin leaflets at the cruciate incision were excised, and the open wound was irrigated with warm sterile saline solution. The wound was packed with kerlix and dressed with gauze and tape. Juno Lott MD General Surgery
[2019-10-29] MEDS: Acetaminophen 325 MG Tab PO SCH ×2 (12:54→20:20)
--- NOTE | 2019-10-29 14:50 | PCM.CONS ---
H&P History of Present Illness - General Date of Service: 10/29/19 Admit Problem/Dx: Admission Diagnosis/Problem Admission Diagnosis/Problem Diabetes mellitus - History of Present Illness Initial Comments - Free Text/Narative: 49-year-old female with history of anxiety, bipolar disorder, splenomegaly, hypothyroidism, hepatitis C and poorly controlled insulin-dependent diabetes was seen in the emergency room with a suprapubic abscess and cellulitis on October 22, 2019 and had an I&D done there. Patient had little symptomatic relief and followed up with Dr. Lott on October 24, 2019 and he brought her to surgery today for wound exploration and debridement. There is no significant undrained abscess identified, but loculations were broken up. Before surgery today she was fasting and found to have a significantly elevated blood sugar of 458 at 1100 hrs. She states that she is on Levemir 50 units twice daily and NovoLog 18 units with each meal. She states he did take Levemir 50 units this morning. After surgery when she was brought to the observation unit her [id number] glucose was 334. Quick review of blood sugars since 2014 available to me show a range of 71 to as high as 630. Mons pubis Pain Score (Numeric/FACES): 9 - Related Data Allergies/Adverse Reactions: Allergies Allergy/AdvReac Type Severity Reaction Status Date / Time codeine Allergy Rash Verified 10/29/19 11:37 morphine AdvReac Mild Nausea and Verified 10/29/19 11:37 Vomiting latex Allergy Intermediate Blisters Uncoded 10/22/19 11:37 Home Medications: Home Meds Levothyroxine 50 mcg PO DAILY 12/24/13 [History] Pramipexole Di-HCl [Mirapex] 1 mg PO DAILY 06/25/14 [History] Insulin Aspart [Novolog Flexpen] 1 dose SQ ASDIRECTED 09/15/17 [History] Buprenorphine HCl/Naloxone HCl [Suboxone 4 mg-1 mg Sl Film] 8.2 mg PO TID [History] Spironolactone [Aldactone] 25 mg PO DAILY 03/21/18 [History] Insulin Detemir [Levemir] 50 unit SQ BID 05/09/18 [History] ALPRAZolam [Xanax] 1 mg PO BID PRN 09/24/19 [History] Cariprazine Hydrochloride [Vraylar] 1 mg PO DAILY 09/24/19 [History] Estradiol [Estrace] 1.5 mg PO DAILY 09/24/19 [History] Doxycycline [Vibramycin] 100 mg PO BID #14 tab 10/22/19 [Rx] Past Medical History HEENT History: Reports: Impaired Vision Other HEENT History: wears eyeglasses Cardiovascular History: Reports: Hypertension Respiratory History: Reports: Bronchitis, Recurrent, Pneumonia, Recurrent Gastrointestinal History: Reports: Cirrhosis, GERD, Hepatitis 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/BYN 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 Musculoskeletal History: Reports: Other (See Below) Other Musculoskeletal History: Scoliosis Neurological History: Reports: Migraines Psychiatric History: Reports: Addiction, Anxiety, Bipolar, Depression Endocrine/Metabolic History: Reports: Diabetes, Type I, Hypothyroidism Hematologic History: Reports: Anemia Oncologic (Cancer) History: Reports: Cervix, Thyroid Dermatologic History: Reports: Psoriasis - Infectious Disease History Infectious Disease History: Reports: Chicken Pox, Hepatitis C, Influenza, MRSA, Shingles - Past Surgical History HEENT Surgical History: Reports: Adenoidectomy, Tonsillectomy Female Surgical History: Reports: Hysterectomy, Tubal Ligation Endocrine Surgical History: Reports: Thyroidectomy Other Endocrine Surgeries/Procedures: partial thyroidectomy Social & Family History - Family History Family Medical History: Noncontributory - Tobacco Use Smoking Status *Q: Current Every Day Smoker Years of Tobacco use: 27 Second Hand Smoke Exposure: Yes - Caffeine Use Caffeine Use: Reports: Coffee, Soda, Tea - Alcohol Use Days Per Week of Alcohol Use: 0 Number of Drinks Per Day: 0 Total Drinks Per Week: 0 - Recreational Drug Use Recreational Drug Use: No - Living Situation & Occupation Living situation: Reports: (), with Family (Son) Occupation: Disabled H&P Review of Systems - Review of Systems: Review Of Systems: Comprehensive ROS is negative, except as noted in HPI. Exam - Exam Exam: See Below - Vital Signs Vital Signs: Last Vital Signs Temp 97.3 F 10/29/19 12:32 Pulse 56 L 10/29/19 13:25 Resp 16 10/29/19 13:25 BP 124/72 10/29/19 13:25 Pulse Ox 98 10/29/19 13:25 Weight: 177 lb 6.4 oz - Exam Quality Assessment: No: Supplemental Oxygen General: Alert, Oriented, 4 HEENT: Conjunctiva Clear, Hearing Intact, Mucosa Moist & Donald Neck: Supple, Trachea Midline, 2 Lungs: Clear to Auscultation, Normal Respiratory Effort Cardiovascular: Regular Rate, Regular Rhythm GI/Abdominal Exam: Normal Bowel Sounds, Soft, Non-Tender, No Organomegaly, No Distention Extremities: Normal Inspection, Normal Range of Motion, Non-Tender, No Pedal Edema Skin: Warm, Dry, Intact Neuro Extensive - Mental Status: Alert, Oriented x3, Normal Mood/Affect, Normal Cognition, Memory Intact Neuro Extensive - Motor, Sensory, Reflexes: CN II-XII Intact Psychiatric: Alert, Normal Affect, Normal Mood - Patient Data Lab Results Last 24 hrs: Laboratory Results - last 24 hr 10/29/19 10/29/19 Range/Units 11:16 13:50 Glucose 458 H (74-106) mg/dL POC Glucose 334 H (70-105) mg/dL Sepsis Event Note - Evaluation Sepsis Screening Result: No Definite Risk - Focused Exam Vital Signs: Vital Signs Temp Pulse Resp BP Pulse Ox 10/29/19 13:25 56 L 16 124/72 98 10/29/19 13:00 56 L 16 123/82 98 10/29/19 12:32 97.3 F 77 12 116/78 91 L 10/29/19 10:55 97.6 F 70 16 120/83 94 L Date Exam was Performed: 10/29/19 Time Exam was Performed: 15:02 Consult PN Assessment/Plan Procedures: Procedures AGENT NOS ASSAY W/OPTIC (07/24/14) ASSAY GLUCOSE BLOOD QUANT (05/09/18) ASSAY OF AMMONIA (10/04/15) ASSAY OF AMYLASE (03/18/15) ASSAY OF BLOOD OSMOLALITY (06/13/16) ASSAY OF LIPASE (05/22/19) ASSAY OF MAGNESIUM (12/25/13) ASSAY OF PHOSPHORUS (12/25/13) ASSAY OF TROPONIN QUANT (08/08/17) ASSAY THYROID STIM HORMONE (10/06/14) BL SMEAR W/DIFF WBC COUNT (05/22/19) BLOOD GASES ANY COMBINATION (05/09/18) C DIFF AMPLIFIED PROBE (07/24/14) C-REACTIVE PROTEIN (05/22/19) CHEST X-RAY 1 VIEW FRONTAL (08/08/17) CHEST X-RAY 2VW FRONTAL&LATL (12/16/16) CHORIONIC GONADOTROPIN ASSAY (11/07/15) CHYLMD TRACH DNA AMP PROBE (01/20/18) COMPLETE CBC AUTOMATED (05/22/19) COMPLETE CBC W/AUTO DIFF WBC (01/20/18) COMPREHEN METABOLIC PANEL (05/22/19) CT ABD & PELV W/CONTRAST (05/24/16) CT ABD & PELVIS W/O CONTRAST (05/22/19) CT HEAD/BRAIN W/O DYE (03/25/14) CULTURE AEROBIC IDENTIFY (12/25/13) DETECT AGNT MULT DNA AMPLI (03/21/18) ECHO EXAM OF ABDOMEN (03/18/15) ELECTROCARDIOGRAM TRACING (08/08/17) EMERGENCY DEPT VISIT (10/22/19) EMERGENCY DEPT VISIT (05/22/19) EMERGENCY DEPT VISIT (11/01/18) EMERGENCY DEPT VISIT (05/09/18) EMERGENCY DEPT VISIT (03/21/18) EMERGENCY DEPT VISIT (12/21/17) EMERGENCY DEPT VISIT (09/15/17) EMERGENCY DEPT VISIT (08/08/17) EMERGENCY DEPT VISIT (06/13/16) EMERGENCY DEPT VISIT (01/07/16) EMERGENCY DEPT VISIT (11/07/15) EMERGENCY DEPT VISIT (07/31/15) EMERGENCY DEPT VISIT (03/18/15) EMERGENCY DEPT VISIT (01/26/15) EMERGENCY DEPT VISIT (01/24/15) EMERGENCY DEPT VISIT (12/12/14) EMERGENCY DEPT VISIT (12/02/14) EMERGENCY DEPT VISIT (10/24/14) EMERGENCY DEPT VISIT (10/06/14) EMERGENCY DEPT VISIT (07/21/14) EMERGENCY DEPT VISIT (06/25/14) EMERGENCY DEPT VISIT (06/15/14) EMERGENCY DEPT VISIT (03/25/14) EMERGENCY DEPT VISIT (03/23/14) EMERGENCY DEPT VISIT (12/25/13) FIBRIN DEGRADATION QUANT (12/21/17) GLUCOSE BLOOD TEST (05/09/18) GLYCOSYLATED HEMOGLOBIN TEST (10/04/15) HELICOBACTER PYLORI ANTIBODY (08/08/17) HEPATIC FUNCTION PANEL (12/25/13) HYDRATE IV INFUSION ADD-ON (05/22/19) I & D OF VULVA/PERINEUM (10/22/19) METABOLIC PANEL TOTAL CA (12/25/13) MICROBE SUSCEPTIBLE YUNIOR (12/25/13) MR-STAPH DNA AMP PROBE (10/22/19) MRI JOINT UPR EXTREM W/O DYE (07/12/14) N.GONORRHOEAE DNA AMP PROB (01/20/18) PROTHROMBIN TIME (12/21/17) ROUTINE VENIPUNCTURE (05/22/19) SMEAR WET MOUNT SALINE/INK (03/30/18) STOOL CULTR AEROBIC BACT EA (07/24/14) TEST FOR ACETONE/KETONES (06/13/16) THER/PROPH/DIAG INJ IV PUSH (05/22/19) THER/PROPH/DIAG INJ SC/IM (10/22/19) THROMBOPLASTIN TIME PARTIAL (12/21/17) TRICHOMONAS ASSAY W/OPTIC (03/30/18) TX/PRO/DX INJ NEW DRUG ADDON (05/22/19) TX/PRO/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 (05/22/19) URINALYSIS AUTO W/SCOPE (05/22/19) URINE BACTERIA CULTURE (12/25/13) URINE CULTURE/COLONY COUNT (11/01/18) URINE TEST (06/13/16) VANOMYCIN DNA AMP PROBE (07/24/14) WITHDRAWAL OF ARTERIAL BLOOD (05/09/18) X-RAY EXAM ABDOMEN 1 VIEW (12/21/17) X-RAY EXAM CHEST 2 VIEWS (12/21/17) X-RAY EXAM L-S SPINE 2/3 VWS (12/16/16) X-RAY EXAM NECK SPINE 2-3 VW (10/24/14) X-RAY EXAM OF ABDOMEN (11/09/15) X-RAY EXAM OF ABDOMEN (10/04/15) X-RAY EXAM OF ABDOMEN (12/02/14) X-RAY EXAM OF SHOULDER (12/16/16) X-RAY EXAM SACRUM TAILBONE (12/16/16) Problem List Initiated/Reviewed/Updated: Yes My Orders Last 24 Hours: My Active Orders 10/29/19 14:45 Insulin Lispro [HumaLOG] 18 unit SUBCUT ONETIME ONE 10/29/19 17:00 Blood Glucose Check, Bedside [RC] ONETIME Plan: Assessment * Uncontrolled insulin-dependent diabetic with abscess and cellulitis of the mons pubis * Continue home insulin, Lantus 50 units twice daily, NovoLog 18 units with each meal. * Recheck blood sugars 1 to 2 hours after meals and adjust with sliding scale insulin. * Discussed with the patient she would benefit from close monitoring of her blood sugar and to a keep her blood sugars at least less than 200. This would help with the healing of the current infection. * Blood sugars may be more elevated secondary to infection * CBC and BMP. * Cellulitis and abscess of mons pubis * Primary team to treat * Multiple, chronic, stable conditions to include hepatitis C, bipolar disorder , hypothyroidism * Continue home medications. Thank you for letting us contribute to the care of this patient. We will follow and correct her blood sugars as appropriate.
[2019-10-29] MEDS ORDERED: 50% Dextrose in Water 50 ML Syringe IVPUSH PRN (14:51)
[2019-10-29] MEDS ORDERED: Insulin Lispro 100 Units/ML 3 ML Vial SUBCUT ONE (15:00)
[2019-10-29] MEDS: oxyCODONE 5 MG Tab PO PRN ×2 (15:01→19:28)
[2019-10-29] MEDS: Sulfamethoxazole/Trimethoprim 800-160 MG Tab PO SCH ×2 (15:03→20:21)
[2019-10-29] MEDS ORDERED: Insulin Lispro 100 Units/ML 3 ML Vial SUBCUT SCH (17:00)
[2019-10-29] MEDS: BUPRENORPHINE HCL PO SCH ×2 (18:05→20:21)
[2019-10-29] MEDS: NALOXONE HCL PO SCH ×2 (18:05→20:21)
[2019-10-29] MEDS ORDERED: Amoxicillin/Clavulanate K 875-125 MG Tab PO SCH (21:00)
[2019-10-29] MEDS: Insulin Glarg,Human.Rec.Analog 100 Unit/ML SUBCUT SCH (21:56)
[2019-10-30] MEDS: Acetaminophen 325 MG Tab PO SCH (06:20)
[2019-10-30 06:21] VITALS: PULSE 52
[2019-10-30] MEDS ORDERED: Insulin Lispro 100 Units/ML 3 ML Vial SUBCUT ONE (06:31)
[2019-10-30] MEDS: Sulfamethoxazole/Trimethoprim 800-160 MG Tab PO SCH (08:15)
[2019-10-30] MEDS: Insulin Glarg,Human.Rec.Analog 100 Unit/ML SUBCUT SCH (08:16)
[2019-10-30] MEDS: Insulin Lispro 100 Units/ML 3 ML Vial SUBCUT SCH ×2 (08:17→11:48)
--- NOTE | 2019-10-30 08:43 | PCM.CONSN ---
- General Info Date of Service: 10/30/19 Admission Dx/Problem (Free Text): Admission Diagnosis/Problem Admission Diagnosis/Problem Diabetes mellitus Subjective Update: Patient is doing well. Blood sugars have been well controlled. Appetite is good. Functional Status: Reports: Pain Controlled - Review of Systems General: Reports: No Symptoms HEENT: Reports: No Symptoms Pulmonary: Reports: No Symptoms Cardiovascular: Reports: No Symptoms Gastrointestinal: Reports: No Symptoms Musculoskeletal: Reports: No Symptoms - Patient Data Vitals - Most Recent: Last Vital Signs Temp 98.6 F 10/30/19 06:18 Pulse 52 L 10/30/19 06:18 Resp 16 10/30/19 06:18 BP 100/54 L 10/30/19 06:18 Pulse Ox 90 L 10/30/19 06:18 Weight - Most Recent: 177 lb 6.4 oz I&O - Last 24 Hours: Intake & Output 10/29/19 10/30/19 10/30/19 22:59 06:59 14:59 Intake Total 500 400 Output Total 500 1000 Balance 0 -600 Lab Results Last 24 Hours: Laboratory Results - last 24 hr 10/29/19 10/29/19 10/29/19 Range/Units 11:16 13:50 15:35 WBC 6.34 (3.98-10.04) K/mm3 RBC 4.57 (3.98-5.22) M/mm3 Hgb 13.2 (11.2-15.7) gm/dl Hct 40.2 (34.1-44.9) % MCV 88.0 (79.4-94.8) fl MCH 28.9 (25.6-32.2) pg MCHC 32.8 (32.2-35.5) g/dl RDW Std Deviation 43.1 (36.4-46.3) fL Plt Count 100 L (182-369) K/mm3 MPV 9.9 (9.4-12.3) fl Neut % (Auto) 73.1 H (34.0-71.1) % Lymph % (Auto) 21.0 (19.3-51.7) % Bulloch % (Auto) 4.7 (4.7-12.5) % Eos % (Auto) 0.8 (0.7-5.8) Baso % (Auto) 0.2 (0.1-1.2) % Neut # (Auto) 4.64 (1.56-6.13) K/mm3 Lymph # (Auto) 1.33 (1.18-3.74) K/mm3 Bulloch # (Auto) 0.30 (0.24-0.36) K/mm3 Eos # (Auto) 0.05 (0.04-0.36) K/mm3 Baso # (Auto) 0.01 (0.01-0.08) K/mm3 Sodium (136-145) mEq/L Potassium (3.5-5.1) mEq/L Chloride (98-107) mEq/L Carbon Dioxide (21-32) mEq/L Anion Gap (5-15) BUN (7-18) mg/dL Creatinine (0.55-1.02) mg/dL Est Cr Clr Drug Dosing mL/min Estimated GFR (MDRD) (>60) mL/min BUN/Creatinine Ratio (14-18) Glucose 458 H (74-106) mg/dL POC Glucose 334 H (70-105) mg/dL Calcium (8.5-10.1) mg/dL 10/29/19 10/29/19 10/29/19 Range/Units 17:30 20:37 21:50 WBC (3.98-10.04) K/mm3 RBC (3.98-5.22) M/mm3 Hgb (11.2-15.7) gm/dl Hct (34.1-44.9) % MCV (79.4-94.8) fl MCH (25.6-32.2) pg MCHC (32.2-35.5) g/dl RDW Std Deviation (36.4-46.3) fL Plt Count (182-369) K/mm3 MPV (9.4-12.3) fl Neut % (Auto) (34.0-71.1) % Lymph % (Auto) (19.3-51.7) % Bulloch % (Auto) (4.7-12.5) % Eos % (Auto) (0.7-5.8) Baso % (Auto) (0.1-1.2) % Neut # (Auto) (1.56-6.13) K/mm3 Lymph # (Auto) (1.18-3.74) K/mm3 Bulloch # (Auto) (0.24-0.36) K/mm3 Eos # (Auto) (0.04-0.36) K/mm3 Baso # (Auto) (0.01-0.08) K/mm3 Sodium (136-145) mEq/L Potassium (3.5-5.1) mEq/L Chloride (98-107) mEq/L Carbon Dioxide (21-32) mEq/L Anion Gap (5-15) BUN (7-18) mg/dL Creatinine (0.55-1.02) mg/dL Est Cr Clr Drug Dosing mL/min Estimated GFR (MDRD) (>60) mL/min BUN/Creatinine Ratio (14-18) Glucose (74-106) mg/dL POC Glucose 271 H 81 139 H (70-105) mg/dL Calcium (8.5-10.1) mg/dL 10/29/19 10/30/19 10/30/19 Range/Units 23:09 03:04 05:16 WBC (3.98-10.04) K/mm3 RBC (3.98-5.22) M/mm3 Hgb (11.2-15.7) gm/dl Hct (34.1-44.9) % MCV (79.4-94.8) fl MCH (25.6-32.2) pg MCHC (32.2-35.5) g/dl RDW Std Deviation (36.4-46.3) fL Plt Count (182-369) K/mm3 MPV (9.4-12.3) fl Neut % (Auto) (34.0-71.1) % Lymph % (Auto) (19.3-51.7) % Bulloch % (Auto) (4.7-12.5) % Eos % (Auto) (0.7-5.8) Baso % (Auto) (0.1-1.2) % Neut # (Auto) (1.56-6.13) K/mm3 Lymph # (Auto) (1.18-3.74) K/mm3 Bulloch # (Auto) (0.24-0.36) K/mm3 Eos # (Auto) (0.04-0.36) K/mm3 Baso # (Auto) (0.01-0.08) K/mm3 Sodium 139 (136-145) mEq/L Potassium 4.6 (3.5-5.1) mEq/L Chloride 103 (98-107) mEq/L Carbon Dioxide 28 (21-32) mEq/L Anion Gap 12.6 (5-15) BUN 18 (7-18) mg/dL Creatinine 0.9 (0.55-1.02) mg/dL Est Cr Clr Drug Dosing 80.12 mL/min Estimated GFR (MDRD) > 60 (>60) mL/min BUN/Creatinine Ratio 20.0 H (14-18) Glucose 185 H (74-106) mg/dL POC Glucose 153 H 175 H (70-105) mg/dL Calcium 8.9 (8.5-10.1) mg/dL 10/30/19 Range/Units 06:11 WBC (3.98-10.04) K/mm3 RBC (3.98-5.22) M/mm3 Hgb (11.2-15.7) gm/dl Hct (34.1-44.9) % MCV (79.4-94.8) fl MCH (25.6-32.2) pg MCHC (32.2-35.5) g/dl RDW Std Deviation (36.4-46.3) fL Plt Count (182-369) K/mm3 MPV (9.4-12.3) fl Neut % (Auto) (34.0-71.1) % Lymph % (Auto) (19.3-51.7) % Bulloch % (Auto) (4.7-12.5) % Eos % (Auto) (0.7-5.8) Baso % (Auto) (0.1-1.2) % Neut # (Auto) (1.56-6.13) K/mm3 Lymph # (Auto) (1.18-3.74) K/mm3 Bulloch # (Auto) (0.24-0.36) K/mm3 Eos # (Auto) (0.04-0.36) K/mm3 Baso # (Auto) (0.01-0.08) K/mm3 Sodium (136-145) mEq/L Potassium (3.5-5.1) mEq/L Chloride (98-107) mEq/L Carbon Dioxide (21-32) mEq/L Anion Gap (5-15) BUN (7-18) mg/dL Creatinine (0.55-1.02) mg/dL Est Cr Clr Drug Dosing mL/min Estimated GFR (MDRD) (>60) mL/min BUN/Creatinine Ratio (14-18) Glucose (74-106) mg/dL POC Glucose 191 H (70-105) mg/dL Calcium (8.5-10.1) mg/dL Med Orders - Current: Current Medications Acetaminophen (Tylenol) 975 mg PO Q8H FORMERLY [facility], [facility] Last Admin: 10/30/19 06:20 Dose: 975 mg Alprazolam (Xanax) 1 mg PO BID PRN PRN Reason: Anxiety Last Admin: 10/30/19 08:22 Dose: 1 mg Dextrose/Water (Dextrose 50% In Water) 50 ml IVPUSH ASDIRECTED PRN PRN Reason: Hypoglycemia Estradiol (Estradiol) 1.5 mg PO DAILY FOR[facility]LY [facility], [facility]1983 Last Admin: 10/30/19 08:15 Dose: 1.5 mg Insulin Glargine (Lantus) 50 unit SUBCUT BID [facility], [facility]1983 Last Admin: 10/30/19 08:16 Dose: 50 units Insulin Human Lispro (Humalog) 0 unit SUBCUT QIDACANDBED [facility], [facility]1983; Protocol Last Admin: 10/30/19 08:17 Dose: Not Given Insulin Human Lis[facility] ([facility]alog) [facility] Levothyroxine Sodium (Levothyroxine) 50 mcg PO DAILY [facility], [facility] Last Admin: 10/30/19 08:15 Dose: 50 mcg Oxycodone HCl (Oxycodone) 5 mg PO Q4H PRN PRN Reason: Pain (moderate 4-6) Last Admin: 10/29/19 19:28 Dose: 5 mg Buprenorphine Hcl/Naloxone Hcl Pt's Own Med 0 each PO TID [facility], [facility] Last Admin: 10/29/19 20:21 Dose: Not Given Cariprazine Hydrochloride [ Vraylar] Pt's Own Med 0 each PO DAILY [facility] Pramipexole Dihydrochloride (Mirapex) 1 mg PO DAILY [facility] Last Admin: 10/30/19 08:15 Dose: 1 mg Spironolactone (Aldactone) 25 mg PO DAILY [facility] Last Admin: 10/30/19 08:15 Dose: 25 mg Trimethoprim/Sulfamethoxazole (Septra Ds) 1 tab PO BID [facility] Last Admin: 10/30/19 08:15 Dose: 1 tab Discontinued Medications Amoxicillin/Clavulanate Potassium (Augmentin 875 Mg/125 Mg) 1 tab PO Q12HR [facility], [facility] Bupivacaine HCl/Epinephrine Bitart (Marcaine 0.5%/Epinephrine 1:200,000) Confirm Administered Dose 50 ml .ROUTE .STK-MED ONE Stop: 10/29/19 11:41 Last Admin: 10/29/19 12:15 Dose: 20 ml Fentanyl (Sublimaze) Confirm Administered Dose 100 mcg .ROUTE .STK-MED ONE Stop: 10/29/19 10:57 Fentanyl (Sublimaze) 50 mcg IVPUSH Q5M PRN PRN Reason: Pain Last Admin: 10/29/19 12:55 Dose: 50 mcg Lidocaine HCl (Xylocaine-Mpf 1%) Confirm Administered Dose 4 mls @ as directed .ROUTE .STK-MED ONE Stop: 10/29/19 10:57 Lactated Ringer's (Ringers, Lactated) 1,000 mls @ 125 mls/hr IV ASDIRECTED [facility], [facility]1983 Stop: 10/29/19 23:00 Last Admin: 10/29/19 11:20 Dose: 125 mls/hr Insulin Human Lispro (Humalog) 18 unit SUBCUT ONETIME ONE Stop: 10/29/19 15:01 Last Admin: 10/29/19 15:03 Dose: 18 units Insulin Human Lispro (Humalog) 18 unit SUBCUT TIDAC [facility] Last Admin: 10/29/19 18:02 Dose: 18 units Insulin Human Lispro (Humalog) 10 unit SUBCUT DAILY ONE Stop: 10/30/19 06:32 Lidocaine/Sodium Bicarbonate (Buffered Lidocaine 1% In Ns 8.4%) 0.25 ml IDERM ONETIME PRN PRN Reason: Prior to IV Start Stop: 10/29/19 18:00 Last Admin: 10/29/19 11:17 Dose: 0.25 ml Metoclopramide HCl (Reglan) Confirm Administered Dose 10 mg .ROUTE .STK-MED ONE Stop: 10/29/19 10:58 Midazolam HCl (Versed 1 Mg/Ml) Confirm Administered Dose 2 mg .ROUTE .STK-MED ONE Stop: 10/29/19 10:57 Propofol (Diprivan 20 Ml) Confirm Administered Dose 200 mg .ROUTE .STK-MED ONE Stop: 10/29/19 10:57 Propofol (Diprivan 20 Ml) Confirm Administered Dose 200 mg .ROUTE .STK-MED ONE Stop: 10/29/19 12:22 Scopolamine (Transderm-Scop) 1.5 mg TOP ONETIME ONE Stop: 10/29/19 11:06 Last Admin: 10/29/19 11:14 Dose: 1.5 mg Sodium Chloride (Saline Flush) 10 ml FLUSH ASDIRECTED PRN PRN Reason: Keep Vein Open Stop: 10/29/19 18:00 - Exam General: Alert, Oriented HEENT: Pupils Equal, Mucous Membr. Moist/[place] Neck: Supple Lungs: Clear to Auscultation, Normal Respiratory Effort Cardiovascular: Regular Rate, Regular Rhythm GI/Abdominal Exam: Normal Bowel Sounds, Soft, Non-Tender, No Organomegaly, No Distention, No Abnormal Bruit, No Mass Extremities: Normal Inspection, Normal Range of Motion, No Pedal Edema Psy/Mental Status: Alert, Normal Affect, Normal Mood Sepsis Event Note - Evaluation Sepsis Screening Result: No Definite Risk - Focused Exam Vital Signs: Vital Signs Temp Pulse Resp BP Pulse Ox 10/30/19 06:18 98.6 F 52 L 16 100/54 L 90 L 10/30/19 03:10 97.5 F 50 L 16 110/68 94 L Date Exam was Performed: 10/30/19 Time Exam was Performed: 08:40 Consult PN Assessment/Plan POD#: 1 Procedures: Procedures AGENT NOS ASSAY W/OPTIC (07/24/14) ASSAY GLUCOSE BLOOD QUANT (05/09/18) ASSAY OF AMMONIA (10/04/15) ASSAY OF AMYLASE (03/18/15) ASSAY OF BLOOD OSMOLALITY (06/13/16) ASSAY OF LIPASE (05/22/19) ASSAY OF MAGNESIUM (12/25/13) ASSAY OF PHOSPHORUS (12/25/13) ASSAY OF TROPONIN QUANT (08/08/17) ASSAY THYROID STIM HORMONE (10/06/14) BL SMEAR W/DIFF WBC COUNT (05/22/19) BLOOD GASES ANY COMBINATION (05/09/18) C DIFF AMPLIFIED PROBE (07/24/14) C-REACTIVE PROTEIN (05/22/19) CHEST X-RAY 1 VIEW FRONTAL (08/08/17) CHEST X-RAY 2VW FRONTAL&LATL (12/16/16) CHORIONIC GONADOTROPIN ASSAY (11/07/15) CHYLMD TRACH DNA AMP PROBE (01/20/18) COMPLETE CBC AUTOMATED (05/22/19) COMPLETE CBC W/AUTO DIFF WBC (01/20/18) COMPREHEN METABOLIC PANEL (05/22/19) CT ABD & PELV W/CONTRAST (05/24/16) CT ABD & PELVIS W/O CONTRAST (05/22/19) CT HEAD/BRAIN W/O DYE (03/25/14) CULTURE AEROBIC IDENTIFY (12/25/13) DETECT AGNT MULT DNA AMPLI (03/21/18) ECHO EXAM OF ABDOMEN (03/18/15) ELECTROCARDIOGRAM TRACING (08/08/17) EMERGENCY DEPT VISIT (10/22/19) EMERGENCY DEPT VISIT (05/22/19) EMERGENCY DEPT VISIT (11/01/18) EMERGENCY DEPT VISIT (05/09/18) EMERGENCY DEPT VISIT (03/21/18) EMERGENCY DEPT VISIT (12/21/17) EMERGENCY DEPT VISIT (09/15/17) EMERGENCY DEPT VISIT (08/08/17) EMERGENCY DEPT VISIT (06/13/16) EMERGENCY DEPT VISIT (01/07/16) EMERGENCY DEPT VISIT (11/07/15) EMERGENCY DEPT VISIT (07/31/15) EMERGENCY DEPT VISIT (03/18/15) EMERGENCY DEPT VISIT (01/26/15) EMERGENCY DEPT VISIT (01/24/15) EMERGENCY DEPT VISIT (12/12/14) EMERGENCY DEPT VISIT (12/02/14) EMERGENCY DEPT VISIT (10/24/14) EMERGENCY DEPT VISIT (10/06/14) EMERGENCY DEPT VISIT (07/21/14) EMERGENCY DEPT VISIT (06/25/14) EMERGENCY DEPT VISIT (06/15/14) EMERGENCY DEPT VISIT (03/25/14) EMERGENCY DEPT VISIT (03/23/14) EMERGENCY DEPT VISIT (12/25/13) FIBRIN DEGRADATION QUANT (12/21/17) GLUCOSE BLOOD TEST (05/09/18) GLYCOSYLATED HEMOGLOBIN TEST (10/04/15) HELICOBACTER PYLORI ANTIBODY (08/08/17) HEPATIC FUNCTION PANEL (12/25/13) HYDRATE IV INFUSION ADD-ON (05/22/19) I & D OF VULVA/PERINEUM (10/22/19) METABOLIC PANEL TOTAL CA (12/25/13) MICROBE SUSCEPTIBLE YUNIOR (12/25/13) MR-STAPH DNA AMP PROBE (10/22/19) MRI JOINT UPR EXTREM W/O DYE (07/12/14) N.GONORRHOEAE DNA AMP PROB (01/20/18) PROTHROMBIN TIME (12/21/17) ROUTINE VENIPUNCTURE (05/22/19) SMEAR WET M[place] SALINE/INK (03/30/18) STOOL CULTR AEROBIC BACT EA (07/24/14) TEST FOR ACETONE/KETONES (06/13/16) THER/PROPH/DIAG INJ IV PUSH (05/22/19) THER/PROPH/DIAG INJ SC/IM (10/22/19) THROMBOPLASTIN TIME PARTIAL (12/21/17) TRICHOMONAS ASSAY W/OPTIC (03/30/18) TX/PRO/DX INJ NEW DRUG ADDON (05/22/19) TX/PRO/DX INJ SAME DRUG VP TREASURER (05/22/19) URINALYSIS AUTO W/SCOPE (05/22/19) URINE BACTERIA CULTURE (12/25/13) URINE CULTURE/COLONY COUNT (11/01/18) URINE TEST (06/13/16) VANOMYCIN DNA AMP PROBE (07/24/14) WITHDRAWAL OF ARTERIAL BLOOD (05/09/18) X-RAY EXAM ABDOMEN 1 VIEW (12/21/17) X-RAY EXAM CHEST 2 VIEWS (12/21/17) X-RAY EXAM L-S SPINE 2/3 VWS (12/16/16) X-RAY EXAM NECK SPINE 2-3 VW (10/24/14) X-RAY EXAM OF ABDOMEN (11/09/15) X-RAY EXAM OF ABDOMEN (10/04/15) X-RAY EXAM OF ABDOMEN (12/02/14) X-RAY EXAM OF SHOULDER (12/16/16) X-RAY EXAM SACRUM TAILBONE (12/16/16) Problem List Initiated/Reviewed/Updated: Yes My Orders Last 24 Hours: My Active Orders 10/29/19 14:51 Blood Glucose Check, Bedside [RC] QIDACANDBED Dextrose 50% in Water 50 ml IVPUSH ASDIRECTED PRN 10/29/19 21:00 Insulin Glarg,Human.Rec.Analog [LantUS] 50 unit SUBCUT BID 10/30/19 07:00 Insulin Lispro [HumaLOG] See Protocol SUBCUT QIDACANDBED 10/30/19 16:00 Insulin Lispro [HumaLOG] 15 unit SUBCUT BIDAC Plan: Assessment * Uncontrolled insulin-dependent diabetic with abscess and cellulitis of the mons pubis * Continue home insulin, Lantus 50 units a.m. and 25 units p.m., NovoLog 10 units with breakfast and 15 units with lunch and dinner. * Include sliding scale insulin for correction * Discussed with the patient she would benefit from close monitoring of her blood sugar and to a keep her blood sugars at least less than 200. This would help with the healing of the current infection. * Blood sugars may be more elevated secondary to infection * Patient stable for discharge from medical standpoint. * Cellulitis and abscess of mons pubis * Primary team to treat * Multiple, chronic, stable conditions to include hepatitis C, bipolar disorder , hypothyroidism * Continue home medications. Thank you for letting us contribute to the care of this patient. We will follow and correct her blood sugars as appropriate.
[2019-10-30] MEDS ORDERED: Spironolactone 25 MG Tab PO SCH (09:00)
[2019-10-30] MEDS ORDERED: Estradiol 0.5 MG Tab PO SCH (09:00)
[2019-10-30] MEDS ORDERED: CARIPRAZINE HYDROCHLORIDE PO SCH (09:00)
[2019-10-30] MEDS ORDERED: Pramipexole 0.5 MG Tab PO SCH (09:00)
[2019-10-30] MEDS ORDERED: Levothyroxine 25 MCG Tab PO SCH (09:00)
--- NOTE | 2019-10-30 09:33 | PCM.DCSUM1 ---
Discharge Summary - Hospital Course Free Text/Narrative:: Presented to clinic yesterday, one week after initial evaluation for soft tissue infection at the mons pubis in the emergency room. The cellulitis failed to clear with a week of doxycycline, and so the patient was taken to the OR yesterday for wound exploration, debridement and packing. Her serum glucose at the time was >400 mg/dL, and so she was kept in the hospital overnight and Dr. Camacho was consulted for assistance in getting her glucose under control. Her glucose checks the follow day were in the 100s range. Initial dressing change was tolerated well at bedside the morning of discharge. She was started on Septra DS and wound care was reviewed. She has been encouraged to follow up with her PCP this week with regarding to her regimen for glucose management. Diagnosis: Stroke: No - Discharge Data Discharge Date: 10/30/19 Discharge Disposition: Home, Self-Care 01 Condition: Good - Referral to Home Health Primary Care Physician: Chris Kaplan MD - Patient Summary/Data Operative Procedure(s) Performed: wound exploration, debridement, packing Consults: Consultations 10/29/19 14:14 Consult to Physician [CONS] Routine Labs Pending at D/C: wound cultures pending Recommended Follow-up Testing/Procedures: PCP this week for assessment of Diabetes medication regimen. Follow up as needed in surgery clinic if wound issues persist. - Patient Instructions Diet: Diabetic Diet Activity: As Tolerated Showering/Bathing: May Shower - Discharge Plan *PRESCRIPTION DRUG MONITORING PROGRAM REVIEWED*: Not Applicable *COPY OF PRESCRIPTION DRUG MONITORING REPORT IN PATIENT ROSA ISELA: Not Applicable Prescriptions/Med Rec: oxyCODONE 5 mg PO Q6H PRN #10 tab PRN Reason: Pain Sulfamethoxazole/Trimethoprim [Septra DS] 1 each PO BID #20 tab Home Medications: Home Meds Levothyroxine 50 mcg PO DAILY 12/24/13 [History] Pramipexole Di-HCl [Mirapex] 1 mg PO DAILY 06/25/14 [History] Insulin Aspart [Novolog Flexpen] 1 dose SQ ASDIRECTED 09/15/17 [History] Buprenorphine HCl/Naloxone HCl [Suboxone 4 mg-1 mg Sl Film] 8.2 mg PO TID [History] Spironolactone [Aldactone] 25 mg PO DAILY 03/21/18 [History] Insulin Detemir [Levemir] 50 unit SQ BID 05/09/18 [History] ALPRAZolam [Xanax] 1 mg PO BID PRN 09/24/19 [History] Cariprazine Hydrochloride [Vraylar] 1 mg PO DAILY 09/24/19 [History] Estradiol [Estrace] 1.5 mg PO DAILY 09/24/19 [History] Doxycycline [Vibramycin] 100 mg PO BID #14 tab 10/22/19 [Rx] Sulfamethoxazole/Trimethoprim [Septra DS] 1 each PO BID #20 tab 10/30/19 [Rx] oxyCODONE 5 mg PO Q6H PRN #10 tab 10/30/19 [Rx] Oxygen Therapy Mode: Room Air - Discharge Summary/Plan Comment DC Time >30 min.: No - Patient Data Vitals - Most Recent: Last Vital Signs Temp 37.0 C 10/30/19 06:18 Pulse 52 L 10/30/19 06:18 Resp 16 10/30/19 06:18 BP 100/54 L 10/30/19 06:18 Pulse Ox 90 L 10/30/19 06:18 Weight - Most Recent: 80.467 kg I&O - Last 24 hours: Intake & Output 10/29/19 10/30/19 10/30/19 22:59 06:59 14:59 Intake Total 500 400 Output Total 500 1000 Balance 0 -600 Lab Results - Last 24 hrs: Laboratory Results - last 24 hr 10/29/19 10/29/19 10/29/19 Range/Units 11:16 13:50 15:35 WBC 6.34 (3.98-10.04) K/mm3 RBC 4.57 (3.98-5.22) M/mm3 Hgb 13.2 (11.2-15.7) gm/dl Hct 40.2 (34.1-44.9) % MCV 88.0 (79.4-94.8) fl MCH 28.9 (25.6-32.2) pg MCHC 32.8 (32.2-35.5) g/dl RDW Std Deviation 43.1 (36.4-46.3) fL Plt Count 100 L (182-369) K/mm3 MPV 9.9 (9.4-12.3) fl Neut % (Auto) 73.1 H (34.0-71.1) % Lymph % (Auto) 21.0 (19.3-51.7) % [place] % (Auto) 4.7 (4.7-12.5) % Eos % (Auto) 0.8 (0.7-5.8) Baso % (Auto) 0.2 (0.1-1.2) % Neut # (Auto) 4.64 (1.56-6.13) K/mm3 Lymph # (Auto) 1.33 (1.18-3.74) K/mm3 [place] # (Auto) 0.30 (0.24-0.36) K/mm3 Eos # (Auto) 0.05 (0.04-0.36) K/mm3 Baso # (Auto) 0.01 (0.01-0.08) K/mm3 Sodium (136-145) mEq/L Potassium (3.5-5.1) mEq/L Chloride (98-107) mEq/L Carbon Dioxide (21-32) mEq/L Anion Gap (5-15) BUN (7-18) mg/dL Creatinine (0.55-1.02) mg/dL Est Cr Clr Drug Dosing mL/min Estimated GFR (MDRD) (>60) mL/min BUN/Creatinine Ratio (14-18) Glucose 458 H (74-106) mg/dL POC Glucose 334 H (70-105) mg/dL Calcium (8.5-10.1) mg/dL 10/29/19 10/29/19 10/29/19 Range/Units 17:30 20:37 21:50 WBC (3.98-10.04) K/mm3 RBC (3.98-5.22) M/mm3 Hgb (11.2-15.7) gm/dl Hct (34.1-44.9) % MCV (79.4-94.8) fl MCH (25.6-32.2) pg MCHC (32.2-35.5) g/dl RDW Std Deviation (36.4-46.3) fL Plt Count (182-369) K/mm3 MPV (9.4-12.3) fl Neut % (Auto) (34.0-71.1) % Lymph % (Auto) (19.3-51.7) % [place] % (Auto) (4.7-12.5) % Eos % (Auto) (0.7-5.8) Baso % (Auto) (0.1-1.2) % Neut # (Auto) (1.56-6.13) K/mm3 Lymph # (Auto) (1.18-3.74) K/mm3 [place] # (Auto) (0.24-0.36) K/mm3 Eos # (Auto) (0.04-0.36) K/mm3 Baso # (Auto) (0.01-0.08) K/mm3 Sodium (136-145) mEq/L Potassium (3.5-5.1) mEq/L Chloride (98-107) mEq/L Carbon Dioxide (21-32) mEq/L Anion Gap (5-15) BUN (7-18) mg/dL Creatinine (0.55-1.02) mg/dL Est Cr Clr Drug Dosing mL/min Estimated GFR (MDRD) (>60) mL/min BUN/Creatinine Ratio (14-18) Glucose (74-106) mg/dL POC Glucose 271 H 81 139 H (70-105) mg/dL Calcium (8.5-10.1) mg/dL 10/29/19 10/30/19 10/30/19 Range/Units 23:09 03:04 05:16 WBC (3.98-10.04) K/mm3 RBC (3.98-5.22) M/mm3 Hgb (11.2-15.7) gm/dl Hct (34.1-44.9) % MCV (79.4-94.8) fl MCH (25.6-32.2) pg MCHC (32.2-35.5) g/dl RDW Std Deviation (36.4-46.3) fL Plt Count (182-369) K/mm3 MPV (9.4-12.3) fl Neut % (Auto) (34.0-71.1) % Lymph % (Auto) (19.3-51.7) % [place] % (Auto) (4.7-12.5) % Eos % (Auto) (0.7-5.8) Baso % (Auto) (0.1-1.2) % Neut # (Auto) (1.56-6.13) K/mm3 Lymph # (Auto) (1.18-3.74) K/mm3 [place] # (Auto) (0.24-0.36) K/mm3 Eos # (Auto) (0.04-0.36) K/mm3 Baso # (Auto) (0.01-0.08) K/mm3 Sodium 139 (136-145) mEq/L Potassium 4.6 (3.5-5.1) mEq/L Chloride 103 (98-107) mEq/L Carbon Dioxide 28 (21-32) mEq/L Anion Gap 12.6 (5-15) BUN 18 (7-18) mg/dL Creatinine 0.9 (0.55-1.02) mg/dL Est Cr Clr Drug Dosing 80.12 mL/min Estimated GFR (MDRD) > 60 (>60) mL/min BUN/Creatinine Ratio 20.0 H (14-18) Glucose 185 H (74-106) mg/dL POC Glucose 153 H 175 H (70-105) mg/dL Calcium 8.9 (8.5-10.1) mg/dL 10/30/19 Range/Units 06:11 WBC (3.98-10.04) K/mm3 RBC (3.98-5.22) M/mm3 Hgb (11.2-15.7) gm/dl Hct (34.1-44.9) % MCV (79.4-94.8) fl MCH (25.6-32.2) pg MCHC (32.2-35.5) g/dl RDW Std Deviation (36.4-46.3) fL Plt Count (182-369) K/mm3 MPV (9.4-12.3) fl Neut % (Auto) (34.0-71.1) % Lymph % (Auto) (19.3-51.7) % [place] % (Auto) (4.7-12.5) % Eos % (Auto) (0.7-5.8) Baso % (Auto) (0.1-1.2) % Neut # (Auto) (1.56-6.13) K/mm3 Lymph # (Auto) (1.18-3.74) K/mm3 [place] # (Auto) (0.24-0.36) K/mm3 Eos # (Auto) (0.04-0.36) K/mm3 Baso # (Auto) (0.01-0.08) K/mm3 Sodium (136-145) mEq/L Potassium (3.5-5.1) mEq/L Chloride (98-107) mEq/L Carbon Dioxide (21-32) mEq/L Anion Gap (5-15) BUN (7-18) mg/dL Creatinine (0.55-1.02) mg/dL Est Cr Clr Drug Dosing mL/min Estimated GFR (MDRD) (>60) mL/min BUN/Creatinine Ratio (14-18) Glucose (74-106) mg/dL POC Glucose 191 H (70-105) mg/dL Calcium (8.5-10.1) mg/dL Med Orders - Current: Current Medications Acetaminophen (Tylenol) 975 mg PO Q8H [facility] Last Admin: 10/30/19 06:20 Dose: 975 mg Alprazolam (Xanax) 1 mg PO BID PRN PRN Reason: Anxiety Last Admin: 10/30/19 08:22 Dose: 1 mg Dextrose/Water (Dextrose 50% In Water) 50 ml IVPUSH ASDIRECTED PRN PRN Reason: Hypoglycemia Estradiol (Estradiol) 1.5 mg PO DAILY [facility] Last Admin: 10/30/19 08:15 Dose: 1.5 mg Insulin Glargine (Lantus) 50 unit SUBCUT BID [facility] Last Admin: 10/30/19 08:16 Dose: 50 units Insulin Human Lispro (Humalog) 0 unit SUBCUT QIDACANDBED [facility]; Protocol Last Admin: 10/30/19 08:17 Dose: Not Given [facility] Levothyroxine Sodium (Levothyroxine) 50 mcg PO DAILY [facility] Last Admin: 10/30/19 08:15 Dose: 50 mcg Oxycodone HCl (Oxycodone) 5 mg PO Q4H PRN PRN Reason: Pain (moderate 4-6) Last Admin: 10/29/19 19:28 Dose: 5 mg Buprenorphine Hcl/Naloxone Hcl Pt's Own Med 0 each PO TID [facility] Last Admin: 10/29/19 20:21 Dose: Not Given Cariprazine Hydrochloride [ Vraylar] Pt's Own Med 0 each PO DAILY [facility] Pramipexole Dihydrochloride (Mirapex) 1 mg PO DAILY [facility] Last Admin: 10/30/19 08:15 Dose: 1 mg Spironolactone (Aldactone) 25 mg PO DAILY [facility] Last Admin: 10/30/19 08:15 Dose: 25 mg Trimethoprim/Sulfamethoxazole (Septra Ds) 1 tab PO BID [facility] Last Admin: 10/30/19 08:15 Dose: 1 tab Discontinued Medications Amoxicillin/Clavulanate Potassium (Augmentin 875 Mg/125 Mg) 1 tab PO Q12HR [facility] Bupivacaine HCl/Epinephrine Bitart (Marcaine 0.5%/Epinephrine 1:200,000) Confirm Administered Dose 50 ml .ROUTE .STK-MED ONE Stop: 10/29/19 11:41 Last Admin: 10/29/19 12:15 Dose: 20 ml Fentanyl (Sublimaze) Confirm Administered Dose 100 mcg .ROUTE .STK-MED ONE Stop: 10/29/19 10:57 Fentanyl (Sublimaze) 50 mcg IVPUSH Q5M PRN PRN Reason: Pain Last Admin: 10/29/19 12:55 Dose: 50 mcg Lidocaine HCl (Xylocaine-Mpf 1%) Confirm Administered Dose 4 mls @ as directed .ROUTE .STK-MED ONE Stop: 10/29/19 10:57 Lactated Ringer's (Ringers, Lactated) 1,000 mls @ 125 mls/hr IV ASDIRECTED [facility] Stop: 10/29/19 23:00 Last Admin: 10/29/19 11:20 Dose: 125 mls/hr Insulin Human Lispro (Humalog) 18 unit SUBCUT ONETIME ONE Stop: 10/29/19 15:01 Last Admin: 10/29/19 15:03 Dose: 18 units Insulin Human Lispro (Humalog) 18 unit SUBCUT TIDAC [facility] Last Admin: 10/29/19 18:02 Dose: 18 units Insulin Human Lispro (Humalog) 10 unit SUBCUT DAILY ONE Stop: 10/30/19 06:32 Lidocaine/Sodium Bicarbonate (Buffered Lidocaine 1% In Ns 8.4%) 0.25 ml IDERM ONETIME PRN PRN Reason: Prior to IV Start Stop: 10/29/19 18:00 Last Admin: 10/29/19 11:17 Dose: 0.25 ml Metoclopramide HCl (Reglan) Confirm Administered Dose 10 mg .ROUTE .STK-MED ONE Stop: 10/29/19 10:58 Midazolam HCl (Versed 1 Mg/Ml) Confirm Administered Dose 2 mg .ROUTE .STK-MED ONE Stop: 10/29/19 10:57 Propofol (Diprivan 20 Ml) Confirm Administered Dose 200 mg .ROUTE .STK-MED ONE Stop: 10/29/19 10:57 Propofol (Diprivan 20 Ml) Confirm Administered Dose 200 mg .ROUTE .STK-MED ONE Stop: 10/29/19 12:22 Scopolamine (Transderm-Scop) 1.5 mg TOP ONETIME ONE Stop: 10/29/19 11:06 Last Admin: 10/29/19 11:14 Dose: 1.5 mg Sodium Chloride (Saline Flush) 10 ml FLUSH ASDIRECTED PRN PRN Reason: Keep Vein Open Stop: 10/29/19 18:00
[2019-10-30 10:10] VITALS: BP 107/57
--- NOTE | 2019-10-30 10:37 | PCM48HPAN ---
Post Anesthesia Note - EVALUATION WITHIN 48HRS OF ANESTHETIC Vital Signs in Normal Range: Yes Patient Participated in Evaluation: Yes Respiratory Function Stable: Yes Airway Patent: Yes Cardiovascular Function Stable: Yes Hydration Status Stable: Yes Pain Control Satisfactory: Yes Nausea and Vomiting Control Satisfactory: Yes Mental Status Recovered: Yes Vital Signs: Last Vital Signs Temp 98.6 F 10/30/19 06:18 Pulse 52 L 10/30/19 07:29 Resp 16 10/30/19 07:29 BP 107/57 L 10/30/19 07:29 Pulse Ox 96 10/30/19 07:29
[2019-10-30] MEDS ORDERED: Insulin Lispro 100 Units/ML 3 ML Vial SUBCUT SCH (11:00)
[2019-10-30] MEDS: NALOXONE HCL PO SCH (11:48)
[2019-10-30] MEDS: BUPRENORPHINE HCL PO SCH (11:48)
[2019-10-31] MEDS ORDERED: Insulin Lispro 100 Units/ML 3 ML Vial SUBCUT SCH (07:00)
== END 2019-10-30 11:40 | disposition home or self-care (01) ==
LOC: JD.SDS 10:43 → JD.MS 14:34
PROVIDERS: ADMIT Surgery; ATTEND Surgery
DX: E10.628 Type 1 diabetes mellitus with other skin complications (principal); L02.215 Cutaneous abscess of perineum; L03.315 Cellulitis of perineum; L02.413 Cutaneous abscess of right upper limb; B95.62 Methicillin resistant Staphylococcus aureus infection as the cause of diseases classified elsewhere; E10.9 Type 1 diabetes mellitus without complications; E03.9 Hypothyroidism, unspecified; I10 Essential (primary) hypertension; K21.9 Gastro-esophageal reflux disease without esophagitis; F41.9 Anxiety disorder, unspecified; F17.200 Nicotine dependence, unspecified, uncomplicated; Z79.899 Other long term (current) drug therapy; Z90.710 Acquired absence of both cervix and uterus; Z88.5 Allergy status to narcotic agent; Z91.040 Latex allergy status; Z79.4 Long term (current) use of insulin
CPT/HCPCS: 10061; 36415; 80048; 82947; 82962; 85025; 87075; 87077; 87186; 87205; A9270; J1815; J2001; J2250; J2704; J2765; J3010; J3490; J7120; 00400; G0378

== ENCOUNTER 2021-09-23 11:42 | Emergency (ER) | payer MEDICAID ==
[2021-09-23 11:55] VITALS: BP 137/119; PULSE 100
[2021-09-23] MEDS ORDERED: Sodium Chloride 0.9% 10 ML Syringe FLUSH PRN (12:12)
[2021-09-23] MEDS ORDERED: Sodium Chloride 0.9% 1,000 ML IV SCH (12:15)
[2021-09-23] MEDS ORDERED: Ondansetron 4 MG/2 ML SDV IVPUSH ONE (12:16)
--- NOTE | 2021-09-23 12:25 | EDM.PDOC ---
<Patience Rivera - Last Filed: 09/23/21 12:44> ED HPI GENERAL MEDICAL PROBLEM - General Chief Complaint: Diabetic Complaint Stated Complaint: LETHARGY/OUT OF BREATH Time Seen by Provider: 09/23/21 11:53 Source of Information: Reports: Patient History Limitations: Reports: No Limitations - History of Present Illness INITIAL COMMENTS - FREE TEXT/NARRATIVE: Ms. Miki Hernández is a 41-year-old female, with a history of Diabetes unsure what type, that presents for evaluation of "feeling like I'm dying". She reports being without insulin since prior to after recently moving back to [place] of state. She does not have a machine to check her blood sugar at home. She currently endorses a headache and confusion, unsure when either starter. She feels like she can't take a deep breath. She has a cough that started 2 days ago and nausea. She denies diarrhea or vomiting. Her last meal was biscuit this morning and she has been able to keep water down. Onset: Unknown/Unsure Generalized Pain Score (Numeric/FACES): 5 - Related Data Allergies Allergy/AdvReac Type Severity Reaction Status Date / Time codeine Allergy Rash Verified 09/23/21 11:56 morphine AdvReac Mild Nausea and Verified 09/23/21 11:56 Vomiting latex Allergy Intermediate Blisters Uncoded 10/29/19 16:59 Home Meds: Home Meds Levothyroxine 50 mcg PO DAILY 12/24/13 [History] Pramipexole Di-HCl [Mirapex] 1 mg PO DAILY 06/25/14 [History] Insulin Aspart [Novolog Flexpen] 18 units SQ TIDMEALS 09/15/17 [History] Buprenorphine HCl/Naloxone HCl [Suboxone 4 mg-1 mg Sl Film] 8.2 mg PO TID 03/21/18 [History] Spironolactone [Aldactone] 25 mg PO DAILY 03/21/18 [History] Insulin Detemir [Levemir] 50 unit SQ BID 05/09/18 [History] ALPRAZolam [Xanax] 1 mg PO BID PRN 09/24/19 [History] Cariprazine HCl [Vraylar] 1 mg PO DAILY 09/24/19 [History] estradioL [Estrace] 1.5 mg PO DAILY 09/24/19 [History] Doxycycline [Vibramycin] 100 mg PO BID #14 tab 10/22/19 [Rx] Sulfamethoxazole/Trimethoprim [Septra DS] 1 tab PO BID #20 tab 10/30/19 [Rx] oxyCODONE 5 mg PO Q6H PRN #10 tab 10/30/19 [Rx] Insulin Detemir [Levemir] 12 unit SUBCUT DAILY #1 pen 09/23/21 [Rx] Insulin Lispro [HumaLOG] 1 unit SQ ACBED #1 vial 09/23/21 [Rx] Past Medical History HEENT History: Reports: Impaired Vision Other HEENT History: wears eyeglasses Cardiovascular History: Reports: Hypertension Respiratory History: Reports: Bronchitis, Recurrent, Pneumonia, Recurrent Gastrointestinal History: Reports: Cirrhosis, GERD, Hepatitis Genitourinary History: Reports: None [employer]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 Musculoskeletal History: Reports: Other (See Below) Other Musculoskeletal History: Scoliosis Neurological History: Reports: Migraines Psychiatric History: Reports: Addiction, Anxiety, Bipolar, Depression Endocrine/Metabolic History: Reports: Diabetes, Type I, Hypothyroidism, Other (See Below) Other Endocrine/Metabolic History: diagnosed 10 years ago Hematologic History: Reports: Anemia Oncologic (Cancer) History: Reports: Cervix, Thyroid Dermatologic History: Reports: Psoriasis - Infectious Disease History Infectious Disease History: Reports: Chicken Pox, Hepatitis C, Influenza, MRSA, Shingles - Past Surgical History HEENT Surgical History: Reports: Adenoidectomy, Tonsillectomy Other HEENT Surgeries/Procedures: Adnoidectomy Cardiovascular Surgical History: Reports: None Respiratory Surgical History: Reports: None GI Surgical History: Reports: Appendectomy Female Surgical History: Reports: Hysterectomy, Tubal Ligation Endocrine Surgical History: Reports: Thyroidectomy Other Endocrine Surgeries/Procedures: partial thyroidectomy Neurological Surgical History: Reports: None Social & Family History - Family History Family Medical History: No Pertinent Family History - Tobacco Use Tobacco Use Status *Q: Current Every Day Tobacco User Years of Tobacco use: 20 Packs/Tins Daily: 0.5 - Caffeine Use Caffeine Use: Reports: Coffee - Recreational Drug Use Recreational Drug Use: Yes Recreational Drug Type: Reports: Marijuana/Hashish Recreational Drug Use Frequency: Weekly - Living Situation & Occupation Living situation: Reports: (), with Family (Son) Occupation: Disabled [facility] - Review of Systems Review Of Systems: Comprehensive ROS is negative, except as noted in HPI. Constitutional: Reports: No Symptoms HEENT: Reports: No Symptoms Respiratory: Reports: Shortness of Breath, Cough Cardiovascular: Reports: No Symptoms Endocrine: Reports: No Symptoms, Other (Unable to assess glucose due to no home monitor). Denies: Polydypsia, Polyuria GI/Abdominal: Reports: No Symptoms : Reports: No Symptoms Musculoskeletal: Reports: No Symptoms Skin: Reports: No Symptoms Neurological: Reports: No Symptoms Psychiatric: Reports: Confusion Hematologic/Lymphatic: Reports: No Symptoms Immunologic: Reports: No Symptoms ED EXAM GENERAL NO PERIP PULSE - Physical Exam Exam: See Below Exam Limited By: No Limitations General Appearance: Alert Eye Exam: Bilateral Eye: EOMI, PERRL Ears: Normal External Exam, Hearing Grossly Normal Nose: Normal Inspection Throat/Mouth: Normal Inspection, Normal Voice, No Airway Compromise Head: Atraumatic, Normocephalic Neck: Normal Inspection, Supple, Non-Tender Respiratory/Chest: No Respiratory Distress, Lungs Clear, Normal Breath Sounds Cardiovascular: Regular Rate, Rhythm, No Edema GI/Abdominal: Normal Bowel Sounds, Soft, Non-Tender Back Exam: Normal Inspection Extremities: Normal Inspection, Normal Range of Motion, Non-Tender Neurological: Alert, Oriented, CN II-XII Intact, Normal Cognition, Normal Reflexes, No Motor/Sensory Deficits Psychiatric: Normal Affect, Normal Mood, Tearful Skin Exam: Warm, Dry, Intact Lymphatic: No Adenopathy Course - Re-Assessments/Exams Free Text/Narrative Re-Assessment/Exam: 09/23/21 12:32 Initial orders include IV insertion, 4mg IV Zofran, 1000mL NaCl bolus, POC glucose, urine drug screen, serum osmolality, blood ketones, lipase, CBC, CMP, ABG, COVID/Influenza swab, EKG. 09/23/21 12:44 Departure - Departure Disposition: Home, Self-Care 01 Clinical Impression: Hyperglycemia due to diabetes mellitus - Discharge Information Prescriptions: Insulin Lispro [HumaLOG] 1 unit SQ ACBED #1 vial Insulin Detemir [Levemir] 12 unit SUBCUT DAILY #1 pen Referrals: PCP,None [Primary Care Provider] - Forms: ED Department Discharge Additional Instructions: Take the levemir 12 units daily. Use the humalog sliding scale for meals. Use the glucometer to check your blood sugars at least 4 times per day for meals and before bed. Follow up with a provider here in [place]. Please return if you are worse. <Jordan Cavanaugh - Last Filed: 09/23/21 15:55> Course - Vital Signs Last Recorded V/S: Last Vital Signs Temp 96.9 F 09/23/21 11:55 Pulse 100 09/23/21 11:55 Resp 18 09/23/21 11:55 BP 137/119 H 09/23/21 11:55 Pulse Ox 97 09/23/21 11:55 - Orders/Labs/Meds Orders: Active Orders 24 hr Category Date Time Status Accu Check [Blood Glucose Check, Bedside] [] ONETIME Care 09/23/21 15:05 Active Cardiac Monitoring [] . DIRECTED Care 09/23/21 12:12 Active Peripheral IV Care [RC] . DIRECTED Care 09/23/21 12:12 Active Insulin Regular, Human [HumuLIN R] 100 unit Med 09/23/21 15:15 Active Sodium Chloride 0.9% [Normal Saline] 99 ml IV TITRATE Sodium Chloride 0.9% [Normal Saline] 1,000 ml Med 09/23/21 12:15 Active IV .BOLUS Sodium Chloride 0.9% [Saline Flush] Med 09/23/21 12:12 Active 10 ml FLUSH ASDIRECTED PRN Peripheral IV Insertion Adult [OM.PC] Stat Oth 09/23/21 12:12 Ordered EKG 12 Lead [EK] Stat Ther 09/23/21 11:57 Ordered Medication Orders Sodium Chloride (Normal Saline) 1,000 mls @ 1,000 mls/hr IV .BOLUS OSCAR Last Admin: 09/23/21 12:37 Dose: 1,000 mls/hr Documented by: HERMMIC Insulin Human Regular 100 unit (/ Sodium Chloride) 100 mls @ 4.536 mls/hr IV TITRATE OSCAR; Protocol Sodium Chloride (Sodium Chloride 0.9% 10 Ml Syringe) 10 ml FLUSH ASDIRECTED PRN PRN Reason: Keep Vein Open Last Admin: 09/23/21 12:38 Dose: 10 ml Documented by: HERMYUNIOR Labs: Laboratory Tests 09/23/21 09/23/21 09/23/21 Range/Units 11:56 12:00 12:00 WBC 9.20 (3.98-10.04) K/mm3 RBC 4.81 (3.98-5.22) M/mm3 Hgb 13.7 (11.2-15.7) gm/dl Hct 40.4 (34.1-44.9) % MCV 84.0 D (79.4-94.8) fl MCH 28.5 (25.6-32.2) pg MCHC 33.9 (32.2-35.5) g/dl RDW Std Deviation 39.7 (36.4-46.3) fL Plt Count 211 D (182-369) K/mm3 MPV 10.4 (9.4-12.3) fl Neut % (Auto) 77.3 H (34.0-71.1) % Lymph % (Auto) 14.7 L (19.3-51.7) % [place] % (Auto) 7.3 (4.7-12.5) % Eos % (Auto) 0.3 L (0.7-5.8) Baso % (Auto) 0.2 (0.1-1.2) % Neut # (Auto) 7.11 H (1.56-6.13) K/mm3 Lymph # (Auto) 1.35 (1.18-3.74) K/mm3 [place] # (Auto) 0.67 H (0.24-0.36) K/mm3 Eos # (Auto) 0.03 L (0.04-0.36) K/mm3 Baso # (Auto) 0.02 (0.01-0.08) K/mm3 Puncture Site ABG pH (7.35-7.45) ABG pCO2 (35.0-45.0) mmHg ABG pO2 (80.0-100.0) mmHg ABG HCO3 (22.0-26.0) meq/L ABG Base Excess (-2-2.0) Freddy Test O2 Delivery Device Sodium 130 L (136-145) mEq/L Potassium 4.3 (3.5-5.1) mEq/L Chloride 92 L (98-107) mEq/L Carbon Dioxide 30 (21-32) mEq/L Anion Gap 12.3 (5-15) BUN 15 (7-18) mg/dL Creatinine 1.0 (0.55-1.02) mg/dL Est Cr Clr Drug Dosing 54.08 mL/min Estimated GFR (MDRD) > 60 (>60) mL/min BUN/Creatinine Ratio 15.0 (14-18) Glucose 634 H* (70-99) mg/dL POC Glucose (70-99) mg/dL Serum Osmolality 312 H (280-300) mosm/kg Calcium 9.1 (8.5-10.1) mg/dL Total Bilirubin 0.7 (0.2-1.0) mg/dL AST 32 (15-37) U/L ALT 76 H (14-59) U/L Alkaline Phosphatase 245 H (46-116) U/L Total Protein 8.2 (6.4-8.2) g/dl Albumin 2.9 L (3.4-5.0) g/dl Globulin 5.3 gm/dL Albumin/Globulin Ratio 0.6 L (1-2) Lipase 268 (73-393) U/L Urine Opiates Screen (AWFHIF=577) Ur Buprenorphine Scrn (CUTOFF=10) Ur Oxycodone Screen (FRH0RA=885) Urine Methadone Screen (TXCZFK=247) Ur Propoxyphene Screen (IMUQLZ=265) Ur Barbiturates Screen (XGDUXJ=423) Ur Tricyclics Screen (NJRPKR=732) Ur Phencyclidine Scrn (CUTOFF=25) Ur Amphetamine Screen (WHPWDW=198) U Methamphetamines Scrn (OVHMSC=216) U Benzodiazepines Scrn (YHROMX=064) U Cocaine Metab Screen (MBFVPI=431) U Marijuana (THC) Screen (CUTOFF=50) Ketones (0.0-0.3) mM Influenza Type A RNA Negative (NEGATIVE) RSV RNA (INAAT) Negative (NEGATIVE) Influenza Type B RNA Negative (NEGATIVE) SARS-CoV-2 RNA (DAWNA) Negative (NEGATIVE) 09/23/21 09/23/21 09/23/21 Range/Units 12:00 12:14 12:35 WBC (3.98-10.04) K/mm3 RBC (3.98-5.22) M/mm3 Hgb (11.2-15.7) gm/dl Hct (34.1-44.9) % MCV (79.4-94.8) fl MCH (25.6-32.2) pg MCHC (32.2-35.5) g/dl RDW Std Deviation (36.4-46.3) fL Plt Count (182-369) K/mm3 MPV (9.4-12.3) fl Neut % (Auto) (34.0-71.1) % Lymph % (Auto) (19.3-51.7) % [place] % (Auto) (4.7-12.5) % Eos % (Auto) (0.7-5.8) Baso % (Auto) (0.1-1.2) % Neut # (Auto) (1.56-6.13) K/mm3 Lymph # (Auto) (1.18-3.74) K/mm3 [place] # (Auto) (0.24-0.36) K/mm3 Eos # (Auto) (0.04-0.36) K/mm3 Baso # (Auto) (0.01-0.08) K/mm3 Puncture Site ABG pH (7.35-7.45) ABG pCO2 (35.0-45.0) mmHg ABG pO2 (80.0-100.0) mmHg ABG HCO3 (22.0-26.0) meq/L ABG Base Excess (-2-2.0) Freddy Test O2 Delivery Device Sodium (136-145) mEq/L Potassium (3.5-5.1) mEq/L Chloride (98-107) mEq/L Carbon Dioxide (21-32) mEq/L Anion Gap (5-15) BUN (7-18) mg/dL Creatinine (0.55-1.02) mg/dL Est Cr Clr Drug Dosing mL/min Estimated GFR (MDRD) (>60) mL/min BUN/Creatinine Ratio (14-18) Glucose (70-99) mg/dL POC Glucose > 580 H* (70-99) mg/dL Serum Osmolality (280-300) mosm/kg Calcium (8.5-10.1) mg/dL Total Bilirubin (0.2-1.0) mg/dL AST (15-37) U/L ALT (14-59) U/L Alkaline Phosphatase (46-116) U/L Total Protein (6.4-8.2) g/dl Albumin (3.4-5.0) g/dl Globulin gm/dL Albumin/Globulin Ratio (1-2) Lipase (73-393) U/L Urine Opiates Screen Negative (HVARQM=483) Ur Buprenorphine Scrn Negative (CUTOFF=10) Ur Oxycodone Screen Negative (RKM4ID=136) Urine Methadone Screen Negative (LUYWTL=719) Ur Propoxyphene Screen Negative (QHOZCH=000) Ur Barbiturates Screen Negative (YXLQEG=568) Ur Tricyclics Screen Negative (ZGVKGI=766) Ur Phencyclidine Scrn Negative (CUTOFF=25) Ur Amphetamine Screen Negative (HJRIUK=448) U Methamphetamines Scrn Negative (UNWDSD=630) U Benzodiazepines Scrn Negative (ZBQUNF=542) U Cocaine Metab Screen Negative (IILRHO=473) U Marijuana (THC) Screen Presumptive positive H (CUTOFF=50) Ketones 0.05 (0.0-0.3) mM Influenza Type A RNA (NEGATIVE) RSV RNA (INAAT) (NEGATIVE) Influenza Type B RNA (NEGATIVE) SARS-CoV-2 RNA (DAWNA) (NEGATIVE) 09/23/21 09/23/21 Range/Units 12:50 15:24 WBC (3.98-10.04) K/mm3 RBC (3.98-5.22) M/mm3 Hgb (11.2-15.7) gm/dl Hct (34.1-44.9) % MCV (79.4-94.8) fl MCH (25.6-32.2) pg MCHC (32.2-35.5) g/dl RDW Std Deviation (36.4-46.3) fL Plt Count (182-369) K/mm3 MPV (9.4-12.3) fl Neut % (Auto) (34.0-71.1) % Lymph % (Auto) (19.3-51.7) % [place] % (Auto) (4.7-12.5) % Eos % (Auto) (0.7-5.8) Baso % (Auto) (0.1-1.2) % Neut # (Auto) (1.56-6.13) K/mm3 Lymph # (Auto) (1.18-3.74) K/mm3 [place] # (Auto) (0.24-0.36) K/mm3 Eos # (Auto) (0.04-0.36) K/mm3 Baso # (Auto) (0.01-0.08) K/mm3 Puncture Site Rt radial ABG pH 7.52 H (7.35-7.45) ABG pCO2 39.6 (35.0-45.0) mmHg ABG pO2 134.0 H (80.0-100.0) mmHg ABG HCO3 32.4 H (22.0-26.0) meq/L ABG Base Excess 9.0 H (-2-2.0) Freddy Test Positive O2 Delivery Device Room air Sodium (136-145) mEq/L Potassium (3.5-5.1) mEq/L Chloride (98-107) mEq/L Carbon Dioxide (21-32) mEq/L Anion Gap (5-15) BUN (7-18) mg/dL Creatinine (0.55-1.02) mg/dL Est Cr Clr Drug Dosing mL/min Estimated GFR (MDRD) (>60) mL/min BUN/Creatinine Ratio (14-18) Glucose (70-99) mg/dL POC Glucose 352 H (70-99) mg/dL Serum Osmolality (280-300) mosm/kg Calcium (8.5-10.1) mg/dL Total Bilirubin (0.2-1.0) mg/dL AST (15-37) U/L ALT (14-59) U/L Alkaline Phosphatase (46-116) U/L Total Protein (6.4-8.2) g/dl Albumin (3.4-5.0) g/dl Globulin gm/dL Albumin/Globulin Ratio (1-2) Lipase (73-393) U/L Urine Opiates Screen (FEVNZK=330) Ur Buprenorphine Scrn (CUTOFF=10) Ur Oxycodone Screen (SZF1VU=194) Urine Methadone Screen (VKJOBT=696) Ur Propoxyphene Screen (YKPYGZ=905) Ur Barbiturates Screen (GYSFQK=220) Ur Tricyclics Screen (CWQDTQ=657) Ur Phencyclidine Scrn (CUTOFF=25) Ur Amphetamine Screen (COFLLU=427) U Methamphetamines Scrn (PZCNGX=502) U Benzodiazepines Scrn (UYFNCS=111) U Cocaine Metab Screen (QLNEAO=212) U Marijuana (THC) Screen (CUTOFF=50) Ketones (0.0-0.3) mM Influenza Type A RNA (NEGATIVE) RSV RNA (INAAT) (NEGATIVE) Influenza Type B RNA (NEGATIVE) SARS-CoV-2 RNA (DAWNA) (NEGATIVE) Meds: Medications Generic Name Dose Route Start Last Admin Trade Name Quinn PRN Reason Stop Dose Admin Sodium Chloride 1,000 mls @ 1,000 mls/hr 09/23/21 12:15 09/23/21 12:37 Normal Saline IV 1,000 mls/hr .BOLUS OSCAR Administration Insulin Human Regular 100 unit 100 mls @ 4.536 mls/hr 09/23/21 15:15 / Sodium Chloride IV TITRATE OSCAR Protocol 0.1 UNITS/KG/HR Sodium Chloride 10 ml 09/23/21 12:12 09/23/21 12:38 Sodium Chloride 0.9% 10 Ml Syringe FLUSH 10 ml ASDIRECTED PRN Administration Keep Vein Open Discontinued Medications Generic Name Dose Route Start Last Admin Trade Name Quinn PRN Reason Stop Dose Admin Acetaminophen 650 mg 09/23/21 14:57 09/23/21 15:03 Acetaminophen 325 Mg Tab PO 09/23/21 14:58 650 mg NOW ONE Administration Sodium Chloride 1,000 mls @ 1,000 mls/hr 09/23/21 13:54 09/23/21 14:24 Normal Saline IV 09/23/21 14:53 1,000 mls/hr ONETIME ONE Administration Ondansetron HCl 4 mg 09/23/21 12:16 09/23/21 12:37 Ondansetron 4 Mg/2 Ml Sdv IVPUSH 09/23/21 12:17 4 mg ONETIME ONE Administration - Re-Assessments/Exams Free Text/Narrative Re-Assessment/Exam: 09/23/21 15:46 I examined the patient myself and I agreed with Patience's assessment and plan. Her blood sugar was 634. Her CBC looks good. Her pH was elevated at 7.52. Her Na was low at 130. Her serum osmolality was 312. Her UDS was positive for marijuana. Her ketones were 0.05. She is not in DKA. She is in hyperosmolar hyperglycemic state. I will give a second liter of fluid and then start and insulin drip. She had a headache so I ordered tylenol for the pain. The second liter was started. Her blood sugar was 352. She got upset and said she had to leave. I will discharge her with a prescription for some levemir, insulin R, needles and glucometer. 09/23/21 15:50 Her influenza, RSV and COVID are all negative. Departure - Departure Time of Disposition: 15:55 Condition: Good - Discharge Information *PRESCRIPTION DRUG MONITORING PROGRAM REVIEWED*: Not Applicable *COPY OF PRESCRIPTION DRUG MONITORING REPORT IN PATIENT ROSA ISELA: Not Applicable Sepsis Event Note (ED) - Focused Exam Vital Signs: Vital Signs Temp Pulse Resp BP Pulse Ox 09/23/21 11:55 96.9 F 100 18 137/119 H 97 - My Orders Last 24 Hours: My Active Orders 09/23/21 11:57 EKG 12 Lead [EK] Stat 09/23/21 12:12 Cardiac Monitoring [RC] . DIRECTED Peripheral IV Care [RC] . DIRECTED Sodium Chloride 0.9% [Saline Flush] 10 ml FLUSH ASDIRECTED PRN Peripheral IV Insertion Adult [OM.PC] Stat 09/23/21 12:15 Sodium Chloride 0.9% [Normal Saline] 1,000 ml IV .BOLUS 09/23/21 15:05 Accu Check [Blood Glucose Check, Bedside] [RC] ONETIME 09/23/21 15:15 Insulin Regular, Human [HumuLIN R] 100 unit Sodium Chloride 0.9% [Normal Saline] 99 ml IV TITRATE - Assessment/Plan Last 24 Hours: My Active Orders 09/23/21 11:57 EKG 12 Lead [EK] Stat 09/23/21 12:12 Cardiac Monitoring [RC] . DIRECTED Peripheral IV Care [RC] . DIRECTED Sodium Chloride 0.9% [Saline Flush] 10 ml FLUSH ASDIRECTED PRN Peripheral IV Insertion Adult [OM.PC] Stat 09/23/21 12:15 Sodium Chloride 0.9% [Normal Saline] 1,000 ml IV .BOLUS 09/23/21 15:05 Accu Check [Blood Glucose Check, Bedside] [RC] ONETIME 09/23/21 15:15 Insulin Regular, Human [HumuLIN R] 100 unit Sodium Chloride 0.9% [Normal Saline] 99 ml IV TITRATE
[2021-09-23 12:39] LABS: CORONAVIRUS COVID-19 NAA NEGATIVE (NEGATIVE)
[2021-09-23] MEDS ORDERED: Sodium Chloride 0.9% 1,000 ML IV ONE (13:54)
[2021-09-23] MEDS ORDERED: Acetaminophen 325 MG Tab PO ONE (14:57)
== END 2021-09-23 16:10 | disposition home or self-care (01) ==
LOC: JD.ED 11:42
DX: E10.65 Type 1 diabetes mellitus with hyperglycemia (principal); I10 Essential (primary) hypertension; K21.9 Gastro-esophageal reflux disease without esophagitis; E03.9 Hypothyroidism, unspecified; Z88.5 Allergy status to narcotic agent; Z91.040 Latex allergy status; Z79.899 Other long term (current) drug therapy; Z72.0 Tobacco use; Z20.822 Contact with and (suspected) exposure to COVID-19
CPT/HCPCS: 0241U; 36415; 36600; 80053; 80306; 82009; 82803; 82947; 83690; 83930; 85025; 93005; 96374; 99285; A9270; J2405; J7030; 99283

== ENCOUNTER 2022-04-26 13:24 | Emergency (ER) | payer MEDICAID ==
[2022-04-26 13:46] VITALS: BP 150/96; PULSE 109
[2022-04-26] MEDS ORDERED: Sodium Chloride 0.9% 10 ML Syringe FLUSH PRN ×2 (14:12→14:25)
[2022-04-26] MEDS ORDERED: HYDROmorphone 0.5 MG/0.5 ML Syringe IVPUSH ONE (14:12)
[2022-04-26] MEDS ORDERED: Iopamidol 612 MG/ML 100 ML Bottle IVPUSH ONE (14:25)
[2022-04-26] MEDS ORDERED: Insulin Regular, Human 100 Units/ML 3 ML Vial IVPUSH ONE (15:19)
[2022-04-26] MEDS ORDERED: Sodium Chloride 0.9% 1,000 ML IV SCH (15:30)
[2022-04-26] MEDS ORDERED: Sulfamethoxazole/Trimethoprim 800-160 MG Tab PO ONE (15:54)
[2022-04-26] MEDS ORDERED: Doxycycline Monohydrate 50 MG Tab PO ONE (15:56)
[2022-04-26] MEDS ORDERED: Doxycycline 100 MG Vial ONE (16:24)
[2022-04-26] MEDS ORDERED: Doxycycline Monohydrate 100 MG Cap PO ONE (16:30)
[2022-04-26] MEDS ORDERED: Insulin Regular, Human 100 Units/ML 3 ML Vial SUBCUT ONE (16:49)
== END 2022-04-26 17:15 | disposition home or self-care (01) ==
LOC: JD.ED 13:24
DX: L03.315 Cellulitis of perineum (principal); E10.65 Type 1 diabetes mellitus with hyperglycemia; I10 Essential (primary) hypertension; F17.210 Nicotine dependence, cigarettes, uncomplicated; Z91.040 Latex allergy status; Z88.5 Allergy status to narcotic agent; Z88.6 Allergy status to analgesic agent; Z79.899 Other long term (current) drug therapy; Z79.4 Long term (current) use of insulin; Z90.49 Acquired absence of other specified parts of digestive tract; Z90.710 Acquired absence of both cervix and uterus
CPT/HCPCS: 36415; 72193; 80053; 82947; 85025; 86140; 96374; 99284; A9270; J1170; J1815; J3490; J7030; Q9967

== ENCOUNTER 2022-04-28 12:01 | Emergency (ER) | payer MEDICAID ==
[2022-04-28 12:29] VITALS: BP 134/101; PULSE 104
[2022-04-28] MEDS ORDERED: HYDROmorphone 1 MG/ML Syringe IM ONE (12:38)
[2022-04-28] MEDS ORDERED: cefTRIAXone 1 GM, Lidocaine 1% 2.1 ML IM ONE ×2 (12:38)
== END 2022-04-28 13:40 | disposition home or self-care (01) ==
LOC: JD.ED 12:01
DX: L03.315 Cellulitis of perineum (principal); I10 Essential (primary) hypertension; E10.9 Type 1 diabetes mellitus without complications; Z91.040 Latex allergy status; Z88.5 Allergy status to narcotic agent; Z88.6 Allergy status to analgesic agent; Z79.899 Other long term (current) drug therapy; Z79.4 Long term (current) use of insulin; Z86.16 Personal history of COVID-19; Z90.710 Acquired absence of both cervix and uterus
CPT/HCPCS: 96372; 99283; J0696; J1170; 99284

== ENCOUNTER 2022-07-05 06:34 | Emergency (ER) | payer MEDICAID ==
[2022-07-05] MEDS ORDERED: Sodium Chloride 0.9% 10 ML Syringe FLUSH PRN (07:01)
[2022-07-05] MEDS ORDERED: Insulin Regular, Human 100 Units/ML 3 ML Vial IVPUSH ONE (07:08)
[2022-07-05] MEDS ORDERED: Sodium Chloride 0.9% 1,000 ML IV SCH (07:15)
[2022-07-05] MEDS ORDERED: Lactated Ringers 1,000 ML IV ONE (08:29)
[2022-07-05] MEDS ORDERED: Insulin Regular, Human 100 Units/ML 3 ML Vial SUBCUT ONE ×2 (08:29→09:48)
[2022-07-05 10:49] VITALS: BP 113/84; PULSE 68
== END 2022-07-05 10:45 | disposition home or self-care (01) ==
LOC: JD.ED 06:34
DX: E10.65 Type 1 diabetes mellitus with hyperglycemia (principal); I10 Essential (primary) hypertension; F17.210 Nicotine dependence, cigarettes, uncomplicated; Z91.040 Latex allergy status; Z88.5 Allergy status to narcotic agent; Z88.6 Allergy status to analgesic agent; Z79.899 Other long term (current) drug therapy; Z79.4 Long term (current) use of insulin; Z90.49 Acquired absence of other specified parts of digestive tract; Z90.710 Acquired absence of both cervix and uterus
CPT/HCPCS: 36415; 80053; 81001; 82009; 82947; 83735; 85025; 96360; 96361; 99284; J1815; J3490; J7030; J7120

== ENCOUNTER 2022-07-26 13:12 | Inpatient (IN) | payer MEDICAID ==
[2022-07-26] MEDS ORDERED: Sodium Chloride 0.9% 1,000 ML IV ONE (16:05)
[2022-07-26] MEDS ORDERED: cefTRIAXone 1 GM in Sodium Chloride 0.9% 100 ML IV ONE (17:00)
[2022-07-26] MEDS ORDERED: Morphine 4 MG/ML Syringe IVPUSH ONE (17:07)
[2022-07-26] MEDS ORDERED: Iopamidol 612 MG/ML 100 ML Bottle IVPUSH ONE (17:32)
[2022-07-26] MEDS ORDERED: HYDROmorphone 0.5 MG/0.5 ML Syringe IVPUSH ONE ×2 (17:39→21:37)
[2022-07-26] MEDS ORDERED: Insulin Glargine,Human Rec. Analog 100 Units/ML 3 ML Pen SUBCUT SCH (23:10)
[2022-07-26] MEDS: HYDROmorphone 0.5 MG/0.5 ML Syringe IVPUSH PRN (23:36)
[2022-07-26] MEDS: Sodium Chloride 0.9% 1,000 ML IV SCH (23:37)
[2022-07-27] MEDS: Insulin Lispro 100 Unit/ML 3 ML KwikPen SUBCUT SCH ×5 (00:02→22:17)
[2022-07-27] MEDS: HYDROmorphone 0.5 MG/0.5 ML Syringe IVPUSH PRN ×5 (01:25→22:08)
[2022-07-27] MEDS ORDERED: LORazepam 0.5 MG Tab PO PRN (09:36)
[2022-07-27] MEDS ORDERED: Insulin Glargine,Human Rec. Analog 100 Units/ML 3 ML Pen SUBCUT SCH ×2 (11:37→21:00)
[2022-07-27] MEDS ORDERED: Insulin Glargine,Human Rec. Analog 100 Units/ML 3 ML Pen SUBCUT ONE (11:45)
[2022-07-27] MEDS: Lactulose Soln 10 GM/15 ML 30 ML UD Cup PO SCH ×2 (15:58→22:13)
[2022-07-27] MEDS ORDERED: Acetaminophen 325 MG Tab PO PRN (16:16)
[2022-07-27] MEDS ORDERED: Pantoprazole 40 MG Vial IVPUSH ONE (16:16)
[2022-07-27] MEDS: Sodium Chloride 0.9% 1,000 ML IV SCH (22:05)
[2022-07-27] MEDS: cefTRIAXone 1 GM in Sodium Chloride 0.9% 100 ML IV SCH (22:10)
[2022-07-27] MEDS: FLUoxetine 20 MG Cap PO SCH (22:13)
[2022-07-28] MEDS: HYDROmorphone 0.5 MG/0.5 ML Syringe IVPUSH PRN ×3 (08:07→17:42)
[2022-07-28] MEDS: Insulin Glargine,Human Rec. Analog 100 Units/ML 3 ML Pen SUBCUT SCH (08:11)
[2022-07-28] MEDS: Insulin Lispro 100 Unit/ML 3 ML KwikPen SUBCUT SCH ×4 (08:14→22:46)
[2022-07-28] MEDS: FLUoxetine 20 MG Cap PO SCH ×2 (08:16→20:46)
[2022-07-28] MEDS: Lactulose Soln 10 GM/15 ML 30 ML UD Cup PO SCH ×3 (08:17→20:45)
[2022-07-28] MEDS: Nicotine 7 MG/24 Hr Patch TRDERM SCH (08:18)
[2022-07-28] MEDS ORDERED: FLUoxetine 20 MG Cap PO SCH (09:00)
[2022-07-28] MEDS: Enoxaparin 40 MG/0.4 ML Syringe SUBCUT SCH (10:15)
[2022-07-28] MEDS ORDERED: VANCOmycin 750 MG/150 ML 750 MG in Premix Bag 1 BAG IV SCH (11:00)
[2022-07-28] MEDS: Sodium Chloride 0.9% 1,000 ML IV SCH (13:02)
[2022-07-28] MEDS: cefTRIAXone 1 GM in Sodium Chloride 0.9% 100 ML IV SCH (20:45)
[2022-07-28] MEDS: Acetaminophen/HYDROcodone 325-5 MG Tab PO PRN (20:46)
[2022-07-28] MEDS ORDERED: VANCOmycin 1.25 GM/250 ML 1.25 GM in Premix Bag 1 BAG IV SCH (23:00)
[2022-07-29] MEDS: HYDROmorphone 0.5 MG/0.5 ML Syringe IVPUSH PRN ×4 (00:03→20:55)
[2022-07-29] MEDS: Sodium Chloride 0.9% 1,000 ML IV SCH ×2 (03:10→14:15)
[2022-07-29 06:21] LABS: ESTIMATED GFR 122 mL/min (>60)
[2022-07-29] MEDS ORDERED: Scopolamine 1.5 MG Transdermal Patch TRDERM ONE (08:07)
[2022-07-29] MEDS: Insulin Lispro 100 Unit/ML 3 ML KwikPen SUBCUT SCH ×4 (08:13→21:11)
[2022-07-29] MEDS ORDERED: Propofol 200 MG/20 ML SDV ONE ×2 (09:18→11:44)
[2022-07-29] MEDS ORDERED: Midazolam 1 MG/ML 2 ML SDV ONE (09:19)
[2022-07-29] MEDS ORDERED: fentaNYL 100 MCG/2 ML SDV ONE ×2 (09:47→11:52)
[2022-07-29] MEDS: Lactulose Soln 10 GM/15 ML 30 ML UD Cup PO SCH ×4 (09:48→21:07)
[2022-07-29] MEDS: Enoxaparin 40 MG/0.4 ML Syringe SUBCUT SCH (09:48)
[2022-07-29] MEDS: FLUoxetine 20 MG Cap PO SCH ×3 (09:48→21:07)
[2022-07-29] MEDS: Nicotine 7 MG/24 Hr Patch TRDERM SCH (10:05)
[2022-07-29] MEDS ORDERED: Vancomycin 1 GM, Vancomycin 250 MG in Sodium Chloride 0.9% 250 ML IV SCH (11:00)
[2022-07-29] MEDS ORDERED: Bupivacaine 0.5%/EPINEPHrine 1:200,000 50 ML MDV ONE (11:03)
[2022-07-29] MEDS ORDERED: 50% Dextrose in Water 50 ML Syringe ONE (11:34)
[2022-07-29] MEDS ORDERED: Ondansetron 4 MG/2 ML SDV ONE (11:45)
[2022-07-29] MEDS: Insulin Glargine,Human Rec. Analog 100 Units/ML 3 ML Pen SUBCUT SCH ×2 (14:05→14:15)
[2022-07-29] MEDS: oxyCODONE 5 MG Tab PO PRN ×2 (14:13→18:54)
[2022-07-29] MEDS: cefTRIAXone 1 GM in Sodium Chloride 0.9% 100 ML IV SCH (19:55)
[2022-07-29] MEDS: Ondansetron 4 MG Tab.DIS PO PRN (21:11)
[2022-07-29] MEDS ORDERED: VANCOmycin 1.25 GM/250 ML 1.25 GM in Premix Bag 1 BAG IV SCH (23:00)
[2022-07-30] MEDS: Sodium Chloride 0.9% 1,000 ML IV SCH (02:26)
[2022-07-30] MEDS: oxyCODONE 5 MG Tab PO PRN ×3 (02:33→22:43)
[2022-07-30 07:17] LABS: ESTIMATED GFR 129 mL/min (>60)
[2022-07-30] MEDS: Insulin Lispro 100 Unit/ML 3 ML KwikPen SUBCUT SCH ×4 (08:29→21:45)
[2022-07-30] MEDS: Insulin Glargine,Human Rec. Analog 100 Units/ML 3 ML Pen SUBCUT SCH (08:30)
[2022-07-30] MEDS: FLUoxetine 20 MG Cap PO SCH ×2 (08:30→20:16)
[2022-07-30] MEDS: Lactulose Soln 10 GM/15 ML 30 ML UD Cup PO SCH ×3 (08:30→20:17)
[2022-07-30] MEDS: Nicotine 7 MG/24 Hr Patch TRDERM SCH (09:33)
[2022-07-30] MEDS: Enoxaparin 40 MG/0.4 ML Syringe SUBCUT SCH (09:33)
[2022-07-30] MEDS: Acetaminophen/HYDROcodone 325-5 MG Tab PO PRN ×2 (12:46→18:10)
[2022-07-30] MEDS: cefTRIAXone 1 GM in Sodium Chloride 0.9% 100 ML IV SCH (20:16)
[2022-07-31] MEDS: Acetaminophen/HYDROcodone 325-5 MG Tab PO PRN ×4 (03:30→22:14)
[2022-07-31] MEDS: Insulin Lispro 100 Unit/ML 3 ML KwikPen SUBCUT SCH ×4 (07:37→21:16)
[2022-07-31] MEDS: Enoxaparin 40 MG/0.4 ML Syringe SUBCUT SCH ×2 (10:15→10:18)
[2022-07-31] MEDS: Ondansetron 4 MG Tab.DIS PO PRN (10:15)
[2022-07-31] MEDS: Lactulose Soln 10 GM/15 ML 30 ML UD Cup PO SCH ×3 (10:15→22:12)
[2022-07-31] MEDS: Saccharomyces Boulardii (Probiotic) 250 MG Cap PO SCH (10:16)
[2022-07-31] MEDS: Insulin Glargine,Human Rec. Analog 100 Units/ML 3 ML Pen SUBCUT SCH (10:16)
[2022-07-31] MEDS: Nicotine 7 MG/24 Hr Patch TRDERM SCH ×2 (10:16→10:18)
[2022-07-31] MEDS: FLUoxetine 20 MG Cap PO SCH ×2 (10:16→21:11)
[2022-07-31] MEDS: Sodium Chloride 0.9% 1,000 ML IV SCH (10:20)
[2022-07-31] MEDS: oxyCODONE 5 MG Tab PO PRN (14:15)
[2022-07-31] MEDS: cefTRIAXone 1 GM in Sodium Chloride 0.9% 100 ML IV SCH (21:12)
[2022-08-01] MEDS: Sodium Chloride 0.9% 1,000 ML IV SCH (02:48)
[2022-08-01] MEDS: Insulin Glargine,Human Rec. Analog 100 Units/ML 3 ML Pen SUBCUT SCH (09:05)
[2022-08-01] MEDS: FLUoxetine 20 MG Cap PO SCH (09:07)
[2022-08-01] MEDS: Saccharomyces Boulardii (Probiotic) 250 MG Cap PO SCH (09:08)
[2022-08-01] MEDS: Lactulose Soln 10 GM/15 ML 30 ML UD Cup PO SCH (09:58)
[2022-08-01] MEDS: Nicotine 7 MG/24 Hr Patch TRDERM SCH (09:58)
[2022-08-01] MEDS: Insulin Lispro 100 Unit/ML 3 ML KwikPen SUBCUT SCH (09:58)
[2022-08-01] MEDS: Enoxaparin 40 MG/0.4 ML Syringe SUBCUT SCH (09:58)
[2022-08-01 10:42] VITALS: BP 101/86; PULSE 76
== END 2022-08-01 09:23 | DRG 571 ==
LOC: JD.ED 13:12 → JD.MS 21:55
PROVIDERS: ADMIT Pediatrics; ATTEND Pediatrics
PROC: 0JB90ZZ Excision of Buttock Subcutaneous Tissue and Fascia, Open Approach (ICD-10-PCS; principal; 2022-07-31)
PROC: 0KBG0ZZ Excision of Left Trunk Muscle, Open Approach (ICD-10-PCS; 2022-07-31)
PROC: 02HV33Z Insertion of Infusion Device into Superior Vena Cava, Percutaneous Approach (ICD-10-PCS; 2022-07-31)
DX: L02.31 Cutaneous abscess of buttock (principal); L02.415 Cutaneous abscess of right lower limb; K86.1 Other chronic pancreatitis; R64 Cachexia; L02.416 Cutaneous abscess of left lower limb; F32.A Depression, unspecified; L02.214 Cutaneous abscess of groin; L89.151 Pressure ulcer of sacral region, stage 1; F19.10 Other psychoactive substance abuse, uncomplicated; K74.60 Unspecified cirrhosis of liver; Z86.14 Personal history of Methicillin resistant Staphylococcus aureus infection; B19.20 Unspecified viral hepatitis C without hepatic coma; B95.62 Methicillin resistant Staphylococcus aureus infection as the cause of diseases classified elsewhere; Z88.8 Allergy status to other drugs, medicaments and biological substances; F31.9 Bipolar disorder, unspecified; K59.09 Other constipation; E10.40 Type 1 diabetes mellitus with diabetic neuropathy, unspecified; F41.9 Anxiety disorder, unspecified; E10.65 Type 1 diabetes mellitus with hyperglycemia; H54.7 Unspecified visual loss; I10 Essential (primary) hypertension; K21.9 Gastro-esophageal reflux disease without esophagitis; G43.909 Migraine, unspecified, not intractable, without status migrainosus; D64.9 Anemia, unspecified; E03.9 Hypothyroidism, unspecified; F17.210 Nicotine dependence, cigarettes, uncomplicated; Z90.89 Acquired absence of other organs; Z86.16 Personal history of COVID-19; Z59.00 Homelessness unspecified; Z91.040 Latex allergy status; Z88.5 Allergy status to narcotic agent; Z87.01 Personal history of pneumonia (recurrent); Z79.890 Hormone replacement therapy; Z86.19 Personal history of other infectious and parasitic diseases; Z98.51 Tubal ligation status; Z90.710 Acquired absence of both cervix and uterus; Z85.850 Personal history of malignant neoplasm of thyroid; Z85.41 Personal history of malignant neoplasm of cervix uteri
CPT/HCPCS: 36415; 72193; 80053; 80306; 81003; 81025; 83605 ×2; 85025; 85652; 86140; 87040 ×2; 96365; 96367; 96375; 99284; J0696; J1170; J3370; J7030; J7050; Q9967; 00300; 36569; 71045; 71045-26; 80202; 82140; 82947; 83036; 83735; 84100; 85027; 85610; 85730; 87070; 87075; 87077; 87186; 87205; 87641; 97162-GP; 99232; 99238; A9270-GY; C1751; C9113; J1650; J1815; J1815-GY; J2250; J2405; J2704; J3010; J3490

== ENCOUNTER 2022-11-29 16:21 | Emergency (ER) | payer MEDICAID ==
[2022-11-29 17:03] VITALS: PULSE 118
[2022-11-29] MEDS ORDERED: Insulin Lispro 100 Unit/ML 3 ML KwikPen SUBCUT ONE (18:56)
[2022-11-29] MEDS ORDERED: Insulin Glargine,Human Rec. Analog 100 Units/ML 3 ML Pen SUBCUT ONE (18:57)
[2022-11-29] MEDS ORDERED: Gabapentin 300 MG Cap PO ONE (18:59)
[2022-11-29 19:16] VITALS: BP 144/110
== END 2022-11-29 19:42 | disposition home or self-care (01) ==
LOC: JD.ED 16:21
DX: E11.65 Type 2 diabetes mellitus with hyperglycemia (principal); I10 Essential (primary) hypertension; E11.40 Type 2 diabetes mellitus with diabetic neuropathy, unspecified; E03.9 Hypothyroidism, unspecified; Z86.73 Personal history of transient ischemic attack (TIA), and cerebral infarction without residual deficits; Z88.5 Allergy status to narcotic agent; Z91.040 Latex allergy status; Z79.4 Long term (current) use of insulin; Z72.0 Tobacco use; Z20.822 Contact with and (suspected) exposure to COVID-19
CPT/HCPCS: 36415; 80053; 80143; 80179; 80306; 80307; 81003; 81025; 84443; 85025; 87635; 93005; 99283; A9270; J1815; 93010; U0002

== ENCOUNTER 2022-12-14 20:16 | Emergency (ER) | payer MEDICAID ==
[2022-12-14 21:09] LABS: ESTIMATED GFR 116 mL/min (>60)
[2022-12-14] MEDS ORDERED: Naloxone 2 MG/2 ML Syringe IVPUSH ONE (21:22)
[2022-12-14 21:58] VITALS: BP 146/101; PULSE 100
== END 2022-12-15 00:14 | disposition home or self-care (01) ==
LOC: JD.ED 20:16
DX: F15.20 Other stimulant dependence, uncomplicated (principal); F12.20 Cannabis dependence, uncomplicated; I10 Essential (primary) hypertension; E10.9 Type 1 diabetes mellitus without complications; Z72.0 Tobacco use; Z88.5 Allergy status to narcotic agent; Z91.040 Latex allergy status
CPT/HCPCS: 36415; 80053; 80306; 80307; 81001; 81025; 83735; 85025; 96374; 99285; J2310; 99284

== ENCOUNTER 2023-01-27 03:27 | Emergency (ER) | payer MEDICAID ==
[2023-01-27] MEDS ORDERED: HYDROmorphone 0.5 MG/0.5 ML Syringe IVPUSH ONE ×2 (03:56→06:31)
[2023-01-27] MEDS ORDERED: Ondansetron 4 MG/2 ML SDV IVPUSH ONE (04:00)
[2023-01-27] MEDS ORDERED: Lidocaine 1% 10 ML MDV INJECT ONE (04:00)
[2023-01-27] MEDS ORDERED: Lactated Ringers 1,000 ML IV ONE (04:10)
[2023-01-27 04:39] LABS: BASOPHILS ABSOLUTE AUTO 0.01 K/mm3 (0.01-0.08); BASOPHILS PERCENT AUTO 0.2 % (0.1-1.2); EOSINOPHILS ABSOLUTE AUTO 0.03 K/mm3 (0.04-0.36); EOSINOPHILS PERCENT AUTO 0.5 (0.7-5.8); HEMATOCRIT 35.5 % (34.1-44.9); HEMOGLOBIN 12.8 gm/dl (11.2-15.7); IMMATURE GRAN ABSOLUTE AUTO 0.01 K/mm3 (0.00-0.10); IMMATURE GRAN PERCENT AUTO 0.2 % (<=1.0); LYMPHOCYTES ABSOLUTE AUTO 0.86 K/mm3 (1.18-3.74); LYMPHOCYTES PERCENT AUTO 12.9 % (19.3-51.7); MEAN CORPUSCULAR HEMOGLOBIN 30.6 pg (25.6-32.2); MEAN CORPUSCULAR HGB CONC 36.1 g/dl (32.2-35.5); MEAN CORPUSCULAR VOLUME 84.9 fl (79.4-94.8); MEAN PLATELET VOLUME 10.1 fl (9.4-12.3); MONOCYTES ABSOLUTE AUTO 0.47 K/mm3 (0.24-0.36); MONOCYTES PERCENT AUTO 7.1 % (4.7-12.5); NEUTROPHILS ABSOLUTE AUTO 5.28 K/mm3 (1.56-6.13); NEUTROPHILS PERCENT AUTO 79.1 % (34.0-71.1); PLATELET COUNT,PLT 152 K/mm3 (182-369); RED BLOOD CELL COUNT 4.18 M/mm3 (3.98-5.22); WHITE BLOOD CELL COUNT,WBC 6.66 K/mm3 (3.98-10.04)
[2023-01-27] MEDS ORDERED: Lidocaine 1% with EPINEPHrine 1:100,000 20 ML MDV ONE (04:48)
[2023-01-27] MEDS ORDERED: Lidocaine 1% with EPINEPHrine 1:100,000 20 ML MDV INJECT ONE (04:51)
[2023-01-27] MEDS ORDERED: cefTRIAXone 2 GM in Sodium Chloride 0.9% 100 ML IV ONE (05:06)
[2023-01-27 05:13] LABS: A/G RATIO 0.6 (1-2); ANION GAP 11.4 (5-15); BILIRUBIN TOTAL 0.6 mg/dL (0.2-1.0); CALCIUM 8.4 mg/dL (8.5-10.1); CREATININE 0.7 mg/dL (0.55-1.02); EST CRCL DRUG DOSING (CG) 89.89 mL/min; MAGNESIUM 1.7 mg/dL (1.8-2.4); POTASSIUM,K 3.4 mEq/L (3.5-5.1); PROTEIN TOTAL,TP 7.7 g/dl (6.4-8.2)
[2023-01-27 06:10] LABS: APPEARANCE,URINE CLEAR (Clear); BILIRUBIN,URINE NEGATIVE (Negative); COLOR,URINE YELLOW (Yellow); GLUCOSE,URINE 3+ (Negative); KETONES,URINE NEGATIVE (Negative); LEUKOCYTE ESTERASE,URINE NEGATIVE (Negative); NITRITE,URINE NEGATIVE (Negative); OCCULT BLOOD,URINE TRACE-LYSED (Negative); PROTEIN,URINE NEGATIVE (Negative); UROBILINOGEN,URINE 0.2 (0.2-1.0)
[2023-01-27 06:21] LABS: BACTERIA,URINE FEW /hpf (FEW); MUCUS,URINE NOT SEEN /hpf (FEW); RBC,URINE 0-5 /hpf (0-5); SQUAMOUS EPITHELIAL CELLS,UR 0-5 /hpf (0-5)
[2023-01-27] MEDS ORDERED: Propofol 200 MG/20 ML SDV IVPUSH ONE (07:24)
[2023-01-27] MEDS ORDERED: Insulin Regular, Human 100 Units/ML 3 ML Vial SUBCUT ONE (08:35)
[2023-01-27 10:48] VITALS: BP 145/92; PULSE 94
== END 2023-01-27 10:20 | disposition home or self-care (01) ==
LOC: JD.ED 03:27
DX: S60.445A External constriction of left ring finger, initial encounter (principal); L02.415 Cutaneous abscess of right lower limb; L03.114 Cellulitis of left upper limb; I10 Essential (primary) hypertension; E10.9 Type 1 diabetes mellitus without complications; F17.210 Nicotine dependence, cigarettes, uncomplicated; Z91.040 Latex allergy status; Z88.5 Allergy status to narcotic agent; Z79.899 Other long term (current) drug therapy; W49.04XA Ring or other jewelry causing external constriction, initial encounter
CPT/HCPCS: 10060; 36415; 80053; 80307; 81001; 82009; 82140; 82947; 83605; 83735; 83880; 84703; 85025; 87040; 87070; 87077; 87186; 87205; 96361; 96365; 96375; 96376; 99283; J0696; J1170; J1815; J2405; J2704; J3490; J7120

== ENCOUNTER 2023-02-01 07:34 | Emergency (ER) | payer MEDICAID ==
[2023-02-01] MEDS ORDERED: Sodium Chloride 0.9% 10 ML Syringe FLUSH PRN (07:55)
[2023-02-01] MEDS ORDERED: Sodium Chloride 0.9% 1,000 ML IV ONE ×2 (07:55→11:20)
[2023-02-01] MEDS ORDERED: HYDROmorphone 1 MG/ML Syringe IVPUSH ONE ×2 (07:55→11:56)
[2023-02-01] MEDS ORDERED: Clindamycin Phosphate in D5W 900 MG in Premix Bag 1 BAG IV ONE ×2 (07:59)
[2023-02-01 08:12] LABS: BASE EXCESS VENOUS 6.8 (-4.0-2.0); BICARBONATE,VENOUS 33.8 meq/L (22-26); O2 SATURATION VENOUS 42.6; PCO2 VENOUS 58.7 mmHg (41-51); PH,VENOUS 7.38 (7.30-7.40)
[2023-02-01 08:24] LABS: BASOPHILS ABSOLUTE AUTO 0.01 K/mm3 (0.01-0.08); BASOPHILS PERCENT AUTO 0.1 % (0.1-1.2); EOSINOPHILS ABSOLUTE AUTO 0.04 K/mm3 (0.04-0.36); EOSINOPHILS PERCENT AUTO 0.6 (0.7-5.8); HEMATOCRIT 43.7 % (34.1-44.9); HEMOGLOBIN 15.6 gm/dl (11.2-15.7); IMMATURE GRAN ABSOLUTE AUTO 0.02 K/mm3 (0.00-0.10); IMMATURE GRAN PERCENT AUTO 0.3 % (<=1.0); LYMPHOCYTES ABSOLUTE AUTO 1.49 K/mm3 (1.18-3.74); LYMPHOCYTES PERCENT AUTO 21.3 % (19.3-51.7); MEAN CORPUSCULAR HEMOGLOBIN 29.5 pg (25.6-32.2); MEAN CORPUSCULAR HGB CONC 35.7 g/dl (32.2-35.5); MEAN CORPUSCULAR VOLUME 82.6 fl (79.4-94.8); MEAN PLATELET VOLUME 9.7 fl (9.4-12.3); MONOCYTES ABSOLUTE AUTO 0.52 K/mm3 (0.24-0.36); MONOCYTES PERCENT AUTO 7.4 % (4.7-12.5); NEUTROPHILS PERCENT AUTO 70.3 % (34.0-71.1); PLATELET COUNT,PLT 265 K/mm3 (182-369); RED BLOOD CELL COUNT 5.29 M/mm3 (3.98-5.22); WHITE BLOOD CELL COUNT,WBC 6.98 K/mm3 (3.98-10.04)
[2023-02-01 08:51] LABS: LACTIC ACID 1.6 mmol/L (0.4-2.0)
[2023-02-01 08:54] LABS: A/G RATIO 0.6 (1-2); ALBUMIN 3.6 g/dl (3.4-5.0); ANION GAP 12.4 (5-15); BILIRUBIN TOTAL 0.5 mg/dL (0.2-1.0); BUN/CREATININE RATIO 23.8 (14-18); C-REACTIVE PROTEIN 1.5 mg/dL (<1.0); CREATININE 0.8 mg/dL (0.55-1.02); EST CRCL DRUG DOSING (CG) 75.91 mL/min; POTASSIUM,K 4.4 mEq/L (3.5-5.1); PROTEIN TOTAL,TP 9.8 g/dl (6.4-8.2)
[2023-02-01 08:56] LABS: CALCIUM 10.1 mg/dL (8.5-10.1)
[2023-02-01 08:57] LABS: APPEARANCE,URINE CLEAR (Clear); BILIRUBIN,URINE NEGATIVE (Negative); COLOR,URINE YELLOW (Yellow); GLUCOSE,URINE 3+ (Negative); KETONES,URINE NEGATIVE (Negative); LEUKOCYTE ESTERASE,URINE NEGATIVE (Negative); NITRITE,URINE NEGATIVE (Negative); OCCULT BLOOD,URINE NEGATIVE (Negative); PROTEIN,URINE NEGATIVE (Negative); UROBILINOGEN,URINE 0.2 (0.2-1.0)
[2023-02-01] MEDS ORDERED: Insulin Glargine,Human Rec. Analog 100 Units/ML 3 ML Pen SUBCUT STA (09:00)
[2023-02-01] MEDS ORDERED: Insulin Lispro 100 Unit/ML 3 ML KwikPen SUBCUT ONE (09:03)
[2023-02-01] MEDS ORDERED: Ketorolac 15 MG/ML SDV IVPUSH ONE (09:28)
[2023-02-01 12:59] VITALS: BP 111/77; PULSE 93
== END 2023-02-01 12:44 ==
LOC: JD.ED 07:34
DX: L02.512 Cutaneous abscess of left hand (principal); E10.65 Type 1 diabetes mellitus with hyperglycemia; M65.9 Synovitis and tenosynovitis, unspecified; I10 Essential (primary) hypertension; E10.40 Type 1 diabetes mellitus with diabetic neuropathy, unspecified; Z79.899 Other long term (current) drug therapy; Z91.040 Latex allergy status; Z88.5 Allergy status to narcotic agent
CPT/HCPCS: 36415; 73140; 80053; 81003; 82009; 82803; 82947; 83605; 85025; 86140; 87040; 96361; 96365; 96375; 96376; 99285; J1170; J1815; J1885; J3490; J7030

== ENCOUNTER 2024-04-22 12:14 | Emergency (ER) | payer SELFPAY ==
[2024-04-22] MEDS ORDERED: oxyCODONE 5 MG Tab PO ONE (13:26)
[2024-04-22] MEDS: Ketorolac 30 MG/ML SDV IVPUSH ONE (13:48)
[2024-04-22] MEDS: Sodium Chloride 0.9% 10 ML Syringe FLUSH PRN (13:49)
[2024-04-22] MEDS: Ondansetron 4 MG/2 ML SDV IVPUSH ONE (14:00)
[2024-04-22 14:04] LABS: BASOPHILS PERCENT AUTO 0.3 % (0.0-1.0); EOSINOPHILS ABSOLUTE AUTO 0.1 K/mm3 (0.0-0.4); HEMATOCRIT 35.5 % (37.0-47.0); HEMOGLOBIN 12.4 gm/dl (12.0-16.0); IMMATURE GRAN ABSOLUTE AUTO 0.01 K/mm3 (0.00-0.05); IMMATURE GRAN PERCENT AUTO 0.2 % (0.0-0.4); LYMPHOCYTES ABSOLUTE AUTO 1.2 K/mm3 (1.0-4.8); LYMPHOCYTES PERCENT AUTO 19.5 % (24.0-44.0); MEAN CORPUSCULAR HEMOGLOBIN 29.5 pg (28.0-32.0); MEAN CORPUSCULAR HGB CONC 34.9 g/dl (32.0-36.0); MEAN CORPUSCULAR VOLUME 84.3 fl (83.0-99.0); MEAN PLATELET VOLUME 9.9 fl (9.4-12.3); MONOCYTES ABSOLUTE AUTO 0.5 K/mm3 (0.0-0.8); MONOCYTES PERCENT AUTO 8.4 % (0.0-8.0); NEUTROPHILS ABSOLUTE AUTO 4.2 K/mm3 (1.8-7.7); NEUTROPHILS PERCENT AUTO 70.6 % (41.0-71.0); PLATELET COUNT,PLT 123 K/mm3 (150-400); RED BLOOD CELL COUNT 4.21 M/mm3 (4.10-5.30); WHITE BLOOD CELL COUNT,WBC 5.95 K/mm3 (3.9-11.3)
[2024-04-22] MEDS: oxyCODONE 5 MG Tab PO ONE (14:04)
[2024-04-22] MEDS: Sodium Chloride 0.9% 1,000 ML IV ONE (14:07)
[2024-04-22 14:31] LABS: APPEARANCE,URINE CLEAR (Clear); BILIRUBIN,URINE NEGATIVE (Negative); COLOR,URINE YELLOW (Yellow); GLUCOSE,URINE 2+ (Negative); KETONES,URINE NEGATIVE (Negative); LEUKOCYTE ESTERASE,URINE NEGATIVE (Negative); NITRITE,URINE NEGATIVE (Negative); OCCULT BLOOD,URINE NEGATIVE (Negative); PROTEIN,URINE NEGATIVE (Negative); UROBILINOGEN,URINE 0.2 (0.2-1.0)
[2024-04-22 14:36] LABS: A/G RATIO 0.6 (1-2); ALBUMIN 2.6 g/dl (3.4-5.0); ANION GAP 9.5 (5-15); BILIRUBIN TOTAL 0.4 mg/dL (0.2-1.0); BUN/CREATININE RATIO 25.7 (14-18); C-REACTIVE PROTEIN 0.5 mg/dL (<0.30); CALCIUM 8.4 mg/dL (8.5-10.1); CREATININE 0.7 mg/dL (0.55-1.02); EST CRCL DRUG DOSING (CG) 90.97 mL/min; MAGNESIUM 1.6 mg/dL (1.8-2.4); POTASSIUM,K 4.5 mEq/L (3.5-5.1); PROTEIN TOTAL,TP 6.8 g/dl (6.4-8.2)
[2024-04-22 18:30] VITALS: BP 131/93; PULSE 97
== END 2024-04-22 16:53 | disposition home or self-care (01) ==
LOC: JD.ED 12:14
DX: L03.317 Cellulitis of buttock (principal); L02.31 Cutaneous abscess of buttock; I10 Essential (primary) hypertension; E10.9 Type 1 diabetes mellitus without complications; Z90.49 Acquired absence of other specified parts of digestive tract; Z90.710 Acquired absence of both cervix and uterus; Z79.4 Long term (current) use of insulin; Z91.040 Latex allergy status; Z88.5 Allergy status to narcotic agent
CPT/HCPCS: 36415; 80053; 81003; 83735; 85025; 86140; 96361; 96374; 96375; 99284; A9270; J1885; J2405; J3490; J7030

== ENCOUNTER 2024-05-04 05:04 | Inpatient (IN) | payer SELFPAY ==
[2024-05-04] MEDS: Lactated Ringers 1,000 ML IV SCH (05:45)
[2024-05-04] MEDS: HYDROmorphone 1 MG/ML Syringe IVPUSH ONE (05:46)
[2024-05-04] MEDS: Sodium Chloride 0.9% 10 ML Syringe FLUSH PRN (05:46)
[2024-05-04] MEDS: Ondansetron 4 MG/2 ML SDV IVPUSH ONE (06:05)
[2024-05-04 06:14] LABS: A/G RATIO 0.7 (1-2); ALBUMIN 3.1 g/dl (3.4-5.0); BILIRUBIN TOTAL 0.6 mg/dL (0.2-1.0); BUN/CREATININE RATIO 8.9 (14-18); C-REACTIVE PROTEIN 3.21 mg/dL (<0.30); CALCIUM 8.6 mg/dL (8.5-10.1); CREATININE 0.9 mg/dL (0.55-1.02); EST CRCL DRUG DOSING (CG) 70.68 mL/min; PROTEIN TOTAL,TP 7.7 g/dl (6.4-8.2)
[2024-05-04 06:15] LABS: HEMATOCRIT 38.6 % (37.0-47.0); HEMOGLOBIN 13.6 gm/dl (12.0-16.0); MEAN CORPUSCULAR HEMOGLOBIN 29.4 pg (28.0-32.0); MEAN CORPUSCULAR HGB CONC 35.2 g/dl (32.0-36.0); MEAN CORPUSCULAR VOLUME 83.5 fl (83.0-99.0); MEAN PLATELET VOLUME 10.2 fl (9.4-12.3); PLATELET COUNT,PLT 129 K/mm3 (150-400); RED BLOOD CELL COUNT 4.62 M/mm3 (4.10-5.30); WHITE BLOOD CELL COUNT,WBC 7.59 K/mm3 (3.9-11.3)
[2024-05-04 06:17] LABS: INR 1.13; PROTHROMBIN TIME 11.9 SECONDS (9.7-12.0)
[2024-05-04 06:32] LABS: LACTIC ACID 2.5 mmol/L (0.4-2.0)
[2024-05-04] MEDS: Iopamidol 612 MG/ML 100 ML Bottle IVPUSH ONE (06:40)
[2024-05-04 06:41] LABS: BAND PERCENT MAN 0 % (0-10); BASOPHILS PERCENT MAN 0 (0.1-1.2); EOSINOPHILS PERCENT MAN 0 % (0.7-5.8); LYMPHOCYTES % ATYPICAL MANUAL 0 %; LYMPHOCYTES PERCENT MAN 12 % (20-40); MONOCYTES PERCENT MAN 8 % (2-10)
[2024-05-04 06:42] LABS: PLATELET COUNT ESTIMATE ADEQUATE
[2024-05-04 07:00] LABS: BASE EXCESS ARTERIAL 5.6 (-2-2.0); BICARBONATE,ARTERIAL 30.9 meq/L (22.0-26.0); O2 SATURATION ARTERIAL 94.1 % (96.0-97.0); PCO2 ARTERIAL 50.1 mmHg (35.0-45.0)
[2024-05-04 07:04] LABS: APPEARANCE,URINE CLEAR (Clear); BILIRUBIN,URINE NEGATIVE (Negative); COLOR,URINE YELLOW (Yellow); GLUCOSE,URINE 3+ (Negative); KETONES,URINE NEGATIVE (Negative); LEUKOCYTE ESTERASE,URINE NEGATIVE (Negative); NITRITE,URINE NEGATIVE (Negative); OCCULT BLOOD,URINE NEGATIVE (Negative); PROTEIN,URINE NEGATIVE (Negative); UROBILINOGEN,URINE 0.2 (0.2-1.0)
[2024-05-04] MEDS: HYDROmorphone 0.5 MG/0.5 ML Syringe IVPUSH ONE (07:04)
[2024-05-04] MEDS: Metoclopramide 10 MG/2 ML SDV IVPUSH ONE (07:04)
[2024-05-04] MEDS: Lidocaine 1% 10 ML MDV INJECT ONE (07:38)
[2024-05-04] MEDS: Cefepime 2 GM in Sodium Chloride 0.9% 50 ML IV ONE (07:55)
[2024-05-04] MEDS: VANCOmycin 1.25 GM/250 ML 1.25 GM in Premix Bag 1 BAG IV ONE (07:57)
[2024-05-04] MEDS: Insulin Regular, Human 100 Units/ML 10 ML Vial SUBCUT ONE (08:22)
[2024-05-04] MEDS: Insulin Regular, Human 100 Units/ML 3 ML Vial SUBCUT ONE (08:50)
[2024-05-04] MEDS: Ketamine 200 MG/20 ML MDV IVPUSH ONE (08:52)
[2024-05-04] MEDS: Lidocaine/Epineph/Tetracaine 3 ML Syringe TOP ONE (08:53)
[2024-05-04] MEDS ORDERED: Naloxone 0.4 MG/ML SDV IVPUSH PRN (13:59)
[2024-05-04] MEDS: HYDROmorphone 0.5 MG/0.5 ML Syringe IVPUSH PRN (15:33)
[2024-05-04] MEDS: Cefepime 2 GM in Sodium Chloride 0.9% 50 ML IV SCH (15:36)
[2024-05-04] MEDS: Insulin Lispro 100 Unit/ML 3 ML KwikPen SUBCUT SCH (17:23)
[2024-05-04] MEDS: oxyCODONE 5 MG Tab PO PRN (17:24)
[2024-05-05 05:05] LABS: BASOPHILS PERCENT AUTO 0.3 % (0.0-1.0); EOSINOPHILS ABSOLUTE AUTO 0.1 K/mm3 (0.0-0.4); HEMATOCRIT 33.5 % (37.0-47.0); HEMOGLOBIN 11.8 gm/dl (12.0-16.0); IMMATURE GRAN ABSOLUTE AUTO 0.03 K/mm3 (0.00-0.05); IMMATURE GRAN PERCENT AUTO 0.4 % (0.0-0.4); LYMPHOCYTES ABSOLUTE AUTO 1.2 K/mm3 (1.0-4.8); LYMPHOCYTES PERCENT AUTO 16.5 % (24.0-44.0); MEAN CORPUSCULAR HEMOGLOBIN 29.2 pg (28.0-32.0); MEAN CORPUSCULAR HGB CONC 35.2 g/dl (32.0-36.0); MEAN CORPUSCULAR VOLUME 82.9 fl (83.0-99.0); MEAN PLATELET VOLUME 10.1 fl (9.4-12.3); MONOCYTES ABSOLUTE AUTO 0.6 K/mm3 (0.0-0.8); MONOCYTES PERCENT AUTO 8.4 % (0.0-8.0); NEUTROPHILS ABSOLUTE AUTO 5.2 K/mm3 (1.8-7.7); NEUTROPHILS PERCENT AUTO 73.4 % (41.0-71.0); PLATELET COUNT,PLT 116 K/mm3 (150-400); RED BLOOD CELL COUNT 4.04 M/mm3 (4.10-5.30); WHITE BLOOD CELL COUNT,WBC 7.04 K/mm3 (3.9-11.3)
[2024-05-05 05:42] LABS: A/G RATIO 0.6 (1-2); ALBUMIN 2.2 g/dl (3.4-5.0); ANION GAP 8.1 (5-15); BILIRUBIN TOTAL 0.6 mg/dL (0.2-1.0); BUN/CREATININE RATIO 16.7 (14-18); C-REACTIVE PROTEIN 2.8 mg/dL (<0.30); CALCIUM 8.1 mg/dL (8.5-10.1); CREATININE 0.6 mg/dL (0.55-1.02); EST CRCL DRUG DOSING (CG) 103.99 mL/min; POTASSIUM,K 4.1 mEq/L (3.5-5.1); PROTEIN TOTAL,TP 6.2 g/dl (6.4-8.2)
[2024-05-05] MEDS: Pantoprazole 40 MG Tab.CR PO SCH (05:53)
[2024-05-05] MEDS: Enoxaparin 40 MG/0.4 ML Syringe SUBCUT SCH (08:08)
[2024-05-05] MEDS: Sodium Chloride 0.9% 1,000 ML IV SCH (08:18)
[2024-05-05] MEDS: VANCOmycin 1.25 GM/250 ML 1.25 GM in Premix Bag 1 BAG IV SCH (12:09)
[2024-05-06 06:17] LABS: BASOPHILS PERCENT AUTO 0.3 % (0.0-1.0); EOSINOPHILS ABSOLUTE AUTO 0.1 K/mm3 (0.0-0.4); EOSINOPHILS PERCENT AUTO 1.5 % (0.0-6.0); HEMATOCRIT 34.3 % (37.0-47.0); HEMOGLOBIN 11.8 gm/dl (12.0-16.0); IMMATURE GRAN ABSOLUTE AUTO 0.03 K/mm3 (0.00-0.05); IMMATURE GRAN PERCENT AUTO 0.5 % (0.0-0.4); LYMPHOCYTES PERCENT AUTO 17.1 % (24.0-44.0); MEAN CORPUSCULAR HEMOGLOBIN 29.1 pg (28.0-32.0); MEAN CORPUSCULAR HGB CONC 34.4 g/dl (32.0-36.0); MEAN CORPUSCULAR VOLUME 84.5 fl (83.0-99.0); MEAN PLATELET VOLUME 9.7 fl (9.4-12.3); MONOCYTES ABSOLUTE AUTO 0.5 K/mm3 (0.0-0.8); MONOCYTES PERCENT AUTO 9.1 % (0.0-8.0); NEUTROPHILS ABSOLUTE AUTO 4.2 K/mm3 (1.8-7.7); NEUTROPHILS PERCENT AUTO 71.5 % (41.0-71.0); PLATELET COUNT,PLT 116 K/mm3 (150-400); RED BLOOD CELL COUNT 4.06 M/mm3 (4.10-5.30); WHITE BLOOD CELL COUNT,WBC 5.84 K/mm3 (3.9-11.3)
[2024-05-06 06:41] LABS: A/G RATIO 0.5 (1-2); ANION GAP 8.1 (5-15); BILIRUBIN TOTAL 0.5 mg/dL (0.2-1.0); BUN/CREATININE RATIO 21.7 (14-18); C-REACTIVE PROTEIN 1.68 mg/dL (<0.30); CREATININE 0.6 mg/dL (0.55-1.02); EST CRCL DRUG DOSING (CG) 103.99 mL/min; POTASSIUM,K 4.1 mEq/L (3.5-5.1); PROTEIN TOTAL,TP 5.9 g/dl (6.4-8.2); VANCOMYCIN RANDOM 12.8 ug/mL
[2024-05-06] MEDS ORDERED: HYDROmorphone 0.5 MG/0.5 ML Syringe IVPUSH PRN ×2 (07:43→13:54)
[2024-05-06] MEDS ORDERED: fentaNYL 100 MCG/2 ML SDV IVPUSH PRN ×2 (07:43→13:54)
[2024-05-06] MEDS: Ondansetron 4 MG/2 ML SDV IVPUSH PRN (10:17)
[2024-05-06] MEDS ORDERED: Ondansetron 4 MG/2 ML SDV IVPUSH PRN (13:54)
[2024-05-06] MEDS ORDERED: Sodium Chloride 0.9% 10 ML Syringe FLUSH PRN (13:54)
[2024-05-06] MEDS ORDERED: Albuterol/Ipratropium 3.0-0.5 MG/3 ML Neb Soln NEB PRN (13:55)
[2024-05-06] MEDS ORDERED: Midazolam 1 MG/ML 2 ML SDV ONE (13:59)
[2024-05-06] MEDS ORDERED: fentaNYL 100 MCG/2 ML SDV ONE (13:59)
[2024-05-06] MEDS ORDERED: Propofol 200 MG/20 ML SDV ONE (13:59)
[2024-05-06] MEDS ORDERED: Rocuronium 50 MG/5 ML Vial ONE (14:02)
[2024-05-06] MEDS: Lactated Ringers 1,000 ML IV SCH (14:12)
[2024-05-06] MEDS ORDERED: Esmolol 100 MG/10 ML SDV ONE (14:40)
[2024-05-06] MEDS: Bupivacaine 0.5% 30 ML SDV ONE (14:48)
[2024-05-06] MEDS ORDERED: Sugammadex Sodium 200 MG/2 ML VIAL IV ONE (15:07)
[2024-05-07] MEDS: Sodium Chloride 0.9% 10 ML Syringe FLUSH SCH (00:40)
[2024-05-07 05:24] LABS: A/G RATIO 0.6 (1-2); BILIRUBIN TOTAL 0.4 mg/dL (0.2-1.0); CALCIUM 7.8 mg/dL (8.5-10.1); CREATININE 0.5 mg/dL (0.55-1.02); EST CRCL DRUG DOSING (CG) 124.79 mL/min; PROTEIN TOTAL,TP 5.6 g/dl (6.4-8.2)
[2024-05-07 05:27] LABS: BASOPHILS PERCENT AUTO 0.4 % (0.0-1.0); EOSINOPHILS ABSOLUTE AUTO 0.1 K/mm3 (0.0-0.4); EOSINOPHILS PERCENT AUTO 1.3 % (0.0-6.0); HEMATOCRIT 33.7 % (37.0-47.0); HEMOGLOBIN 11.6 gm/dl (12.0-16.0); IMMATURE GRAN ABSOLUTE AUTO 0.02 K/mm3 (0.00-0.05); IMMATURE GRAN PERCENT AUTO 0.4 % (0.0-0.4); LYMPHOCYTES PERCENT AUTO 19.8 % (24.0-44.0); MEAN CORPUSCULAR HEMOGLOBIN 29.1 pg (28.0-32.0); MEAN CORPUSCULAR HGB CONC 34.4 g/dl (32.0-36.0); MEAN CORPUSCULAR VOLUME 84.5 fl (83.0-99.0); MEAN PLATELET VOLUME 9.8 fl (9.4-12.3); MONOCYTES ABSOLUTE AUTO 0.5 K/mm3 (0.0-0.8); MONOCYTES PERCENT AUTO 9.4 % (0.0-8.0); NEUTROPHILS ABSOLUTE AUTO 3.6 K/mm3 (1.8-7.7); NEUTROPHILS PERCENT AUTO 68.7 % (41.0-71.0); PLATELET COUNT,PLT 141 K/mm3 (150-400); RED BLOOD CELL COUNT 3.99 M/mm3 (4.10-5.30); WHITE BLOOD CELL COUNT,WBC 5.24 K/mm3 (3.9-11.3)
[2024-05-07 05:38] LABS: POTASSIUM,K 3.8 mEq/L (3.5-5.1)
[2024-05-07 05:42] LABS: ANION GAP 8.8 (5-15)
[2024-05-07] MEDS: Insulin Glargine,Human Rec. Analog 100 Units/ML 3 ML Pen SUBCUT SCH (09:18)
[2024-05-07] MEDS: VANCOmycin 1.5 GM/300 ML 1.5 GM in Premix Bag 1 BAG IV SCH (09:19)
[2024-05-07] MEDS: Ondansetron 4 MG Tab.DIS PO PRN (13:29)
[2024-05-08] MEDS: Polyethylene Glycol 3350 Powder 17 GM Packet PO PRN (06:25)
[2024-05-08] MEDS: Insulin Glargine,Human Rec. Analog 100 Units/ML 3 ML Pen SUBCUT SCH (08:19)
[2024-05-08] MEDS: Doxycycline Monohydrate 100 MG Cap PO SCH (11:31)
[2024-05-09] MEDS: Insulin Glargine,Human Rec. Analog 100 Units/ML 3 ML Pen SUBCUT SCH (09:40)
[2024-05-09] MEDS: Polyethylene Glycol 3350 Powder 17 GM Packet PO SCH (09:42)
[2024-05-10] MEDS: oxyCODONE 5 MG Tab PO PRN (14:24)
[2024-05-10] MEDS: Acetaminophen 325 MG Tab PO PRN (17:38)
[2024-05-10] MEDS: Insulin Glargine,Human Rec. Analog 100 Units/ML 3 ML Pen SUBCUT SCH (21:27)
[2024-05-11] MEDS: Docusate Sodium 100 MG Cap PO PRN (08:53)
[2024-05-11] MEDS: Insulin Glargine,Human Rec. Analog 100 Units/ML 3 ML Pen SUBCUT SCH (20:35)
[2024-05-11] MEDS ORDERED: Insulin Glargine,Human Rec. Analog 100 Units/ML 3 ML Pen SUBCUT SCH (21:00)
[2024-05-12] MEDS: Sennosides/Docusate Sodium 50-8.6 MG Tab PO SCH (09:29)
[2024-05-12] MEDS: Insulin Glargine,Human Rec. Analog 100 Units/ML 3 ML Pen SUBCUT SCH (22:02)
[2024-05-14] MEDS ORDERED: Insulin Glargine,Human Rec. Analog 100 Units/ML 3 ML Pen SUBCUT SCH
[2024-05-15 07:59] VITALS: BP 104/69; PULSE 97
[2024-05-15] MEDS: Insulin Glargine,Human Rec. Analog 100 Units/ML 3 ML Pen SUBCUT ONE (08:28)
== END 2024-05-15 08:25 | disposition home or self-care (01) | DRG 571 ==
LOC: JD.ED 05:04 → EEVIPCON 10:10 → JD.MS 10:10
PROVIDERS: ADMIT Family Medicine; ATTEND Family Medicine
PROC: 0H98XZZ Drainage of Buttock Skin, External Approach (ICD-10-PCS; 2024-05-04)
PROC: 0H9HXZZ Drainage of Right Upper Leg Skin, External Approach (ICD-10-PCS; 2024-05-04)
PROC: 0H9JXZZ Drainage of Left Upper Leg Skin, External Approach (ICD-10-PCS; 2024-05-04)
PROC: 0JB90ZZ Excision of Buttock Subcutaneous Tissue and Fascia, Open Approach (ICD-10-PCS; principal; 2024-05-06 13:00)
DX: L02.415 Cutaneous abscess of right lower limb (principal); E87.1 Hypo-osmolality and hyponatremia; E87.20 Acidosis, unspecified; L02.31 Cutaneous abscess of buttock; Z59.00 Homelessness unspecified; Z66 Do not resuscitate; E87.8 Other disorders of electrolyte and fluid balance, not elsewhere classified; L02.416 Cutaneous abscess of left lower limb; I10 Essential (primary) hypertension; E10.65 Type 1 diabetes mellitus with hyperglycemia; R63.6 Underweight; E10.40 Type 1 diabetes mellitus with diabetic neuropathy, unspecified; L03.116 Cellulitis of left lower limb; L03.115 Cellulitis of right lower limb; B95.62 Methicillin resistant Staphylococcus aureus infection as the cause of diseases classified elsewhere; L98.419 Non-pressure chronic ulcer of buttock with unspecified severity; E86.0 Dehydration; F17.210 Nicotine dependence, cigarettes, uncomplicated; Z88.5 Allergy status to narcotic agent; Z68.20 Body mass index [BMI] 20.0-20.9, adult; Z86.73 Personal history of transient ischemic attack (TIA), and cerebral infarction without residual deficits; Z90.89 Acquired absence of other organs; Z91.040 Latex allergy status; Z87.442 Personal history of urinary calculi; Z87.440 Personal history of urinary (tract) infections; Z98.890 Other specified postprocedural states; Z90.721 Acquired absence of ovaries, unilateral; Z91.198 Patient's noncompliance with other medical treatment and regimen for other reason
CPT/HCPCS: 00300; 10060; 36415; 36600; 72193; 72193-26; 80053; 80202; 81003; 82803; 82947; 83605; 83930; 85007; 85025; 85027; 85610; 86140; 87040; 87070; 87075; 87077; 87186; 87205; 96365; 96367; 96375; 96376; 99223; 99232; 99239; 99284-25; 99285; A9270-GY; J0665; J0692; J1170; J1815; J1815-GY; J2250; J2405; J2704; J2765; J3010; J3372; J3490; J7030; J7120; Q9967